=== PATIENT | female | born 1950 | race Caucasian/White ===

== ENCOUNTER 2017-04-05 09:18 | Day surgery (SDC) | payer OTHER ==
[2016-07-10 20:13] VITALS: BMI 29.2
[~2017-04-05 09:18] MED LIST: Bupivacaine HCl 0.25% PF (10 ml) Inj ONE; Iohexol 240 (50 ml) ONE
[2017-04-05] MEDS ORDERED: MethylPREDNISolone Depo 40 mg/ml Inj ONE (10:20)
[2017-04-05] MEDS ORDERED: Lactated Ringer's 500 ML IV ONE (11:38)
[2017-04-05] MEDS ORDERED: Propofol 10 mg/ml Inj (20 ML) ONE (11:39)
[2017-04-05 12:28] VITALS: PULSE 72; O2SAT 98
--- NOTE | 2017-04-05 12:46 | RAD ---
PROCEDURE: Intraoperative Fluoroscopy. HISTORY: LUMBAR RADICULOPATHY FINDINGS: Fluoroscopic assistance was provided. 21.0 seconds fluoroscopy time utilized during this procedure. Radiation dose = 0.09714 mGy-cm
[2017-04-05 13:47] VITALS: BP 150/78; RESP 18; TEMP 98
--- NOTE | 2017-04-06 08:36 | OP ---
DATE: 04/05/17 PREOPERATIVE DIAGNOSES: 1. Lumbar radiculopathy. 2. Lumbar herniated disc. 3. Myalgias. POSTOPERATIVE DIAGNOSES: 1. Lumbar radiculopathy. 2. Lumbar herniated disc. 3. Myalgias. PROCEDURE: 1. L5-S1 lumbar selective nerve root block. 2. Epidurogram. 3. Trigger point injections. X-RAY: [id number], Fluoroscopy of the spine. ANESTHESIA: MAC/local. SURGEON: Ron Wen MD COMPLICATIONS: None. BLOOD LOSS: 2 mL. INDICATION: This patient has intractable back and leg pain that is unresponsive to conservative management. The pain is adversely affecting quality of life and activities of daily living. TECHNIQUE: After comprehensive informed consent was obtained, the risks of the procedure explained and questions answered. The patient understands fully the risks are, but not limited to possible bleeding, infection, headache, nervous tissue injury and worsening of their pain. The patient was placed prone on the operating table in a comfortable position. Confirmation of the procedure to be performed was obtained from the patient. The skin overlying the area to be injected was cleaned in a strict sterile fashion using chlorhexidine. Sterile drapes were placed around the area to be injected. Using the C-arm in the anteroposterior view, the levels to be injected were identified under fluoroscope. Then, the C-arm was obliqued in the coronal plane until the facet joint was delineated approximately 25 degrees. The area to be injected was superficially anesthetized with 3 mL of 1% lidocaine using a 27-gauge, 1.25-inch needle. Under fluoroscopic guidance, a 22-guage, 3.5-inch short bevel needle was advanced and directed toward the tip of the pars. In the lateral view, ideal placement of the needle was obtained with the tip in the cephalodorsal corner of the neural foramen. In the anteroposterior plane and under continuous fluoroscopy, 1 mL of non-ionic, water-soluble contrast (Omnipaque 180) was injected to visualize the nerve root and make sure there was no vascular uptake. After negative aspiration for blood, 1 mL of preservative-free 0.5% Marcaine in 80 mg of Depo-Medrol was slowly injected at each level. The patient experienced no painful paresthesia during the injection. Epidurogram: The patient underwent transforaminal epidural steroid injection today. The epidural was observed at the level of L4-L5 under AP and lateral fluoroscopic guidance. A 2 mL of Omnipaque 200 contrast was injected that evenly spread from level L3 to S1 level with posterior-anterior dye spread bilaterally at level of L4-L5 and L5-S1. There appeared to be a moderate degree spondylosis at level of L4-L5 and moderate degree of spondylosis at the level of L5-S1 with disc protrusion at the level of L4-L5. The intervertebral disc height at the level of L4-L5 was slightly less than normal and intervertebral disc height at the level of L5-S1 was well maintained. The neural foramen appeared to be patent. Good epidural dye containment from L3-S1 with intervertebral disc protrusion at the level of L4-L5, maintaining less than normal intervertebral disc height at level L4-L5. Spondylosis noted at the level of L4 through S1. Copies of the images are on file. Trigger Point Injections: A 27-gauge needle was used to inject trigger point areas in paralumbar muscles, parathoracic muscles, and upper gluteal muscles. Needle was redirected to sciatic nerve branches. Total volume of 10 mL of 0.25% Marcaine. Intermittent aspiration was done throughout with no heme or CSF aspirated throughout. Patient tolerated procedure well. DISPOSITION: Patient was taken to the recovery room in stable condition. Patient was given instructions to follow up in two weeks and was discharged in stable condition. No events or complications. Ron Wen MD
== END 2017-04-05 12:45 | disposition home or self-care (01) ==
LOC: C.SDS 09:18
PROVIDERS: ATTEND Anesthesiology Pain Medicine
DX: M47.817 Spondylosis without myelopathy or radiculopathy, lumbosacral region (principal); M51.36 Other intervertebral disc degeneration, lumbar region; M51.16 Intervertebral disc disorders with radiculopathy, lumbar region
CPT/HCPCS: 62323; J1030; J2704; J7120; Q9966

== ENCOUNTER 2017-06-18 08:54 | Observation (INO) | payer OTHER ==
[2017-06-18 08:55] VITALS: BMI 29.2
--- NOTE | 2017-06-18 09:17 | C.PDOC ---
History Of Present Illness 67-YEAR-OLD FEMALE, PRESENTS TO THE EMERGENCY DEPARTMENT WITH WORSENING COUGH X 1 WEEK, NEW ONSET CHILLS, AND SWEATS SINCE LAST NIGHT. SAW PMD, ON AUGMENTIN 875 AND PREDNISONE SINCE 06/14, NO IMPROVE. NO IMPROVE W OCUGH RX. PMH of DM, HTN, ALEAH, depression, COPD EXAM APPEARS ILL NONTOXIC HEENT +RHINORRHEA LUNGS B/L EXP WHEEZE BRONCHIAL CADEN NO RALES +RETRACTION SPEAKING 4-5 WORD SENTENCES CV RRR [place] REMAINDER NEG Time Seen by Provider: 06/18/17 09:14 Chief Complaint (Nursing): Shortness Of Breath History Per: Patient History/Exam Limitations: no limitations Onset/Duration Of Symptoms: Days Current Symptoms Are (Timing): Still Present Past Medical History Reviewed: Historical Data, Nursing Documentation, Vital Signs Vital Signs: Last Vital Signs Temp 98.2 F 06/18/17 09:00 Pulse 56 L 06/18/17 11:15 Resp 18 06/18/17 11:15 BP 170/84 H 06/18/17 11:15 Pulse Ox 100 06/18/17 11:15 - Medical History PMH: Alzheimer's Disease, Anxiety, Asthma, Bronchitis, COPD, Dementia, Depression, HTN, Hypercholesterolemia, Schizophrenia Surgical History: Back Surgery - [facility] Procedures ASSISTANCE WITH RESPIRATORY VENTILATION, <24 HRS, CPAP (07/06/15) Family History: States: No Known Family Hx - Social History Hx Tobacco Use: Yes (3 cigarettes daily) Hx Alcohol Use: No Hx Substance Use: No - Immunization History Hx Tetanus Toxoid Vaccination: No Hx Influenza Vaccination: No Hx Pneumococcal Vaccination: No Review Of Systems Except As Marked, All Systems Reviewed And Found Negative. Constitutional: Positive for: Chills. Negative for: Fever Cardiovascular: Negative for: Chest Pain Respiratory: Positive for: Cough. Negative for: Shortness of Breath, Hemoptysis Gastrointestinal: Negative for: Nausea, Vomiting Musculoskeletal: Negative for: Back Pain Physical Exam - Physical Exam Appears: Non-toxic (appears ill), No Acute Distress Skin: Warm, Dry, No Rash, Other ([place]) Head: Atraumatic, Normacephalic Eye(s): bilateral: Normal Inspection, PERRL Nose: Discharge (+RHINORRHEA) Oral Mucosa: Moist Lips: Normal Appearing Neck: Normal ROM, Supple Chest: Symmetrical Cardiovascular: Rhythm Regular, No Murmur Respiratory: Other (B/L EXP WHEEZE BRONCHIAL CADEN NO RALES +RETRACTION SPEAKING 4-5 WORD SENTENCES) Extremity: Normal ROM Neurological/Psych: Oriented x3, Normal Speech ED Course And Treatment - Laboratory Results Result Diagrams: 06/18/17 10:26 06/18/17 10:26 O2 Sat by Pulse Oximetry: 99 (RA) Pulse Ox Interpretation: Normal - Radiology CXR: Interpreted by Me CXR Interpretation: Yes: No Acute Disease Progress - Re-Evaluation Re-evaluation Note: 06/18/17 10:25 SP NEB IMPROVED RESPIRATIONS D/W DR ODELL AWARE OF ER FINDINGS WILL ADMIT - Data Reviewed Data Reviewed: Lab, Diagnostic imaging, Old records Disposition Counseled Patient/Family Regarding: Studies Performed, Diagnosis, Need For Followup - Disposition Disposition: HOSPITALIZED Disposition Time: 10:28 Condition: STABLE - POA Present On Arrival: None - Clinical Impression Clinical Impression: COPD (chronic obstructive pulmonary disease) with acute bronchitis - Scribe Statement The provider has reviewed the documentation as recorded by the Scribe (Gal Guadarrama) All medical record entries made by the Scribe were at my direction and personally dictated by me. I have reviewed the chart and agree that the record accurately reflects my personal performance of the history, physical exam, medical decision making, and the department course for this patient. I have also personally directed, reviewed, and agree with the discharge instructions and disposition. Decision To Admit - Pt Status Changed To: Hospital Disposition Of: Observation - . Bed Request Type: Regular Admitting Physician: Tylor Odell Patient Diagnosis: COPD (chronic obstructive pulmonary disease) with acute bronchitis
[2017-06-18] MEDS ORDERED: Moxifloxacin IV 400mg/250ml NS 400 MG/250 ML BAG IV STA (09:32)
[2017-06-18] MEDS ORDERED: Sodium Chloride 0.9% 1,000 ML IV ONE (09:32)
[2017-06-18] MEDS ORDERED: Moxifloxacin IV 400mg/250ml NS 400 MG/250 ML BAG IVPB ONE (09:52)
[2017-06-18] MEDS ORDERED: Sodium Chloride 0.9% 1,000 ML ONE (09:52)
[2017-06-18] MEDS ORDERED: Albuterol-Ipratrop 3 mg / 0.5 (3 ml) UD ONE (09:59)
[2017-06-18] MEDS: Albuterol-Ipratrop 3 mg / 0.5 (3 ml) UD IH SCH ×3 (10:00→10:20)
--- NOTE | 2017-06-18 10:02 | RAD ---
PROCEDURE: CHEST RADIOGRAPH, 1 VIEW HISTORY: Pneumonia COMPARISON: 07/10/2016 FINDINGS: LUNGS: Clear. PLEURA: No pneumothorax or pleural fluid seen. CARDIOVASCULAR: Normal. OSSEOUS STRUCTURES: No significant abnormalities. VISUALIZED UPPER ABDOMEN: Normal. OTHER FINDINGS: None. IMPRESSION: No active disease.
[2017-06-18] MEDS ORDERED: Moxifloxacin IV 400mg/250ml NS 400 MG/250 ML BAG IVPB SCH (10:30)
[2017-06-18 10:39] LABS: BASO % 0.1 % (0.0-2.0); EOS % 0.1 % (0.0-4.0); HEMOGLOBIN 12.3 g/dL (11.0-16.0); LYMPH # 3.1 K/uL (1.0-4.3); LYMPH % 23.9 % (20.0-40.0); MEAN CORPUSCULAR HEMOGLOBIN 27.8 pg (27.0-31.0); MEAN PLATELET VOLUME 8.6 fL (7.2-11.7); MONO # 1.5 K/uL (0.0-0.8); MONO % 11.7 % (0.0-10.0); NEUT # 8.3 K/uL (1.8-7.0); NEUT % 64.2 % (50.0-75.0); NRBC % 0.1 % (0.0-2.0); RBC 4.43 Mil/uL (3.80-5.20); RED CELL DISTRIBUTION WIDTH 16.1 % (11.5-14.5)
[2017-06-18] MEDS ORDERED: MethylPREDNISolone 40 mg Vial ONE (10:40)
[2017-06-18] MEDS: MethylPREDNISolone 40 mg Vial IVP SCH ×2 (10:48→21:12)
[2017-06-18 11:00] LABS: ALB/GLOB RATIO 1.1 (1.0-2.1); ALBUMIN 3.5 g/dL (3.5-5.0); ALT/SGPT 48 U/L (9-52); AST/SGOT 21 U/L (14-36); BLOOD UREA NITROGEN 19 mg/dL (7-17); CALCIUM 8.8 mg/dl (8.6-10.4); GFR AFRICAN-AMERICAN > 60; GFR NON-AFRICAN AMERICAN > 60
[2017-06-18 11:11] LABS: B-TYPE NATRIURETIC PEPTIDE 232 pg/mL (0-900)
[2017-06-18] MEDS: guaiFENesin 100 mg/5 ml Syrup UD PO SCH ×2 (13:49→17:04)
[2017-06-18] MEDS: Albuterol-Ipratrop 3 mg / 0.5 (3 ml) UD INH SCH ×2 (14:01→19:41)
[2017-06-18 14:42] VITALS: RESP 20
[2017-06-18] MEDS: Oxycodone/Acetaminophen 5/325 mg Tab PO PRN ×2 (17:09→23:52)
[2017-06-18] MEDS: Fluticasone-Salmeterol 250-50mcg Diskus INH SCH (19:41)
[2017-06-18] MEDS: QUEtiapine 150 mg XR Tab PO SCH (21:12)
[2017-06-18] MEDS ORDERED: ILOPERIDONE 6 MG PO SCH ×2 (22:00)
[2017-06-18 22:03] LABS: SQUAMOUS EPITHIAL < 1 /hpf (0-5); URINE BILIRUBIN NEGATIVE (NEGATIVE); URINE BLOOD NEGATIVE (NEGATIVE); URINE CLARITY Clear (Clear); URINE COLOR Yellow (YELLOW); URINE GLUCOSE (UA) NORMAL (Normal); URINE LEUKOCYTE ESTERASE NEG Leu/uL (Negative); URINE NITRATE NEGATIVE (NEGATIVE); URINE PROTEIN NEGATIVE (NEGATIVE); URINE UROBILINOGEN NORMAL mg/dL (0.2-1.0)
--- NOTE | 2017-06-18 22:15 | CP.PCM.HP ---
History of Present Illness - History of Present Illness History of Present Illness: CC: sHORTNESS OF BREATH, COUGH HPI: 67-YEAR-OLD FEMALE WHO IS CHRONIC SMOKER, PRESENTS TO THE EMERGENCY DEPARTMENT WITH WORSENING COUGH X 1 WEEK, NEW ONSET CHILLS, AND SWEATS SINCE LAST NIGHT. SEEN BY ME AND STARTED ON AUGMENTIN 875 AND PREDNISONE SINCE 06/14, NO IMPROVEMENT. NO IMPROVE W OCUGH RX. PMH of DM, HTN, ALEAH, depression, COPD, SCIATICA EXAM APPEARS ILL NONTOXIC HEENT +RHINORRHEA LUNGS B/L EXP WHEEZE BRONCHIAL CADEN NO RALES +RETRACTION SPEAKING 4-5 WORD SENTENCES CV RRR [place] REMAINDER NEG Present on Admission - Present on Admission Any Indicators Present on Admission: Yes Review of Systems - Review of Systems Systems not reviewed;Unavailable: Acuity of Condition, Respiratory Distress - Constitutional Constitutional: Fatigue, Lethargy, Malaise - EENT Eyes: absent: As Per HPI, Blind Spots, Blurred Vision, Change in Vision, Decreased Night Vision, Diplopia, Discharge, Dry Eye, Exophthalmos, Floaters, Irritation, Itchy Eyes, Loss of Peripheral Vision, Pain, Photophobia, Requires Corrective Lenses, Sees Flashes, Spots in Vision, Tunnel Vision, Other Visual Disturbances, Loss of Vision, Other Nose/Mouth/Throat: Nasal Congestion - Respiratory Respiratory: Cough, Dyspnea - Gastrointestinal Gastrointestinal: absent: As Per HPI, Abdominal Pain, Belching, Bloating, Change in Bowel Habits, Change in Stool Character, Coffee Ground Emesis, Constipation, Cramping, Diarrhea, Dyspepsia, Dysphagia, Early Satiety, Excessive Flatus, Fecal Incontinence, Heartburn, Hematemesis, Hematochezia, Loose Stools, Melena, Nausea, Odynophagia, Temesmus, Vomiting, Other - Psychiatric Psychiatric: Abnormal Sleep Pattern, Anxiety, Change in Appetite - Endocrine Endocrine: absent: As Per HPI, Change in Body Appearance, Change in Libido, Cold Intolorance, Deepening of Voice, Excessive Sweating, Fatigue, Flushing, Heat Intolorance, Increase in Ring/Shoe/Hat Size, Palpitations, Polydipsia, Polyphagia, Polyuria, Other Past Patient History - Infectious Disease Hx of Infectious Diseases: None - Past Medical History & Family History Past Medical History?: Yes - Past Social History Smoking Status: Light Smoker < 10 Cigarettes Daily - CARDIAC Hx Hypercholesterolemia: Yes Hx Hypertension: Yes - PULMONARY Hx Asthma: Yes Hx Bronchitis: Yes Hx Chronic Obstructive Pulmonary Disease (COPD): Yes - NEUROLOGICAL Hx Alzheimer's Disease: Yes Hx Dementia: Yes - ENDOCRINE/METABOLIC Hx Endocrine Disorders: Yes Hx Diabetes Mellitus Type 2: Yes - MUSCULOSKELETAL/RHEUMATOLOGICAL Hx Musculoskeletal Disorders: Yes Hx Back Pain: Yes Hx Herniated Disk: Yes Hx Unsteady Gait: Yes Other/Comment: BACK SURGERY JAN 22 - PSYCHIATRIC Hx Anxiety: Yes Hx Depression: Yes Hx Schizophrenia: Yes Hx Substance Use: No - SURGICAL HISTORY Hx Surgeries: Yes Hx Musculoskeletal Surgery: Yes (LAMINECTOMY) - ANESTHESIA Hx Anesthesia: Yes Hx Anesthesia Reactions: No Hx Malignant Hyperthermia: No Meds Allergies/Adverse Reactions: Allergies Allergy/AdvReac Type Severity Reaction Status Date / Time No Known Allergies Allergy Verified 06/18/17 09:07 Physical Exam - Constitutional Appears: No Acute Distress - Head Exam Head Exam: ATRAUMATIC, NORMAL INSPECTION, NORMOCEPHALIC - Eye Exam Eye Exam: EOMI, Normal appearance, PERRL Pupil Exam: NORMAL ACCOMODATION, PERRL - Respiratory Exam Respiratory Exam: Decreased Breath Sounds, Rales, Rhonchi - Cardiovascular Exam Cardiovascular Exam: REGULAR RHYTHM - GI/Abdominal Exam GI & Abdominal Exam: Normal Bowel Sounds, Soft. absent: Tenderness Results - Vital Signs Recent Vital Signs: Last Vital Signs Temp 98.6 F 06/18/17 15:08 Pulse 68 06/18/17 19:46 Resp 20 06/18/17 15:08 BP 152/96 H 06/18/17 15:08 Pulse Ox 97 06/18/17 15:34 - Labs Result Diagrams: 06/18/17 10:26 06/18/17 10:26 Labs: Laboratory Results - last 24 hr 06/18/17 06/18/17 06/18/17 10:26 10:26 21:55 WBC 13.0 H RBC 4.43 Hgb 12.3 Hct 37.2 MCV 84.0 MCH 27.8 MCHC 33.0 RDW 16.1 H Plt Count 263 MPV 8.6 Neut % (Auto) 64.2 Lymph % (Auto) 23.9 [place] % (Auto) 11.7 H Eos % (Auto) 0.1 Baso % (Auto) 0.1 Neut # 8.3 H Lymph # 3.1 [place] # 1.5 H Eos # 0.0 Baso # 0.0 Sodium 136 Potassium 4.0 Chloride 101 Carbon Dioxide 28 Anion Gap 10 BUN 19 H Creatinine 0.8 Est GFR ( Amer) > 60 Est GFR (Non-Af Amer) > 60 Random Glucose 91 Calcium 8.8 Total Bilirubin 0.5 AST 21 ALT 48 Alkaline Phosphatase 52 NT-Pro-B Natriuret Pep 232 Total Protein 6.7 Albumin 3.5 Globulin 3.2 Albumin/Globulin Ratio 1.1 Urine Color Yellow Urine Clarity Clear Urine pH 6.0 Ur Specific [place] 1.019 Urine Protein Negative Urine Glucose (UA) Normal Urine Ketones Negative Urine Blood Negative Urine Nitrate Negative Urine Bilirubin Negative Urine Urobilinogen Normal Ur Leukocyte Esterase Neg Urine WBC (Auto) 2 Urine RBC (Auto) 1 Ur Squamous Epith Cells < 1 Influenza Typ A,B (EIA) 06/18/17 Unknown WBC RBC Hgb Hct MCV MCH MCHC RDW Plt Count MPV Neut % (Auto) Lymph % (Auto) [place] % (Auto) Eos % (Auto) Baso % (Auto) Neut # Lymph # [place] # Eos # Baso # Sodium Potassium Chloride Carbon Dioxide Anion Gap BUN Creatinine Est GFR ( Amer) Est GFR (Non-Af Amer) Random Glucose Calcium Total Bilirubin AST ALT Alkaline Phosphatase NT-Pro-B Natriuret Pep Total Protein Albumin Globulin Albumin/Globulin Ratio Urine Color Urine Clarity Urine pH Ur Specific [place] Urine Protein Urine Glucose (UA) Urine Ketones Urine Blood Urine Nitrate Urine Bilirubin Urine Urobilinogen Ur Leukocyte Esterase Urine WBC (Auto) Urine RBC (Auto) Ur Squamous Epith Cells Influenza Typ A,B (EIA) Negative for flu a/b Assessment & Plan (1) COPD (chronic obstructive pulmonary disease) with acute bronchitis Status: Acute (2) Asthma with bronchitis Status: Acute (3) Bronchospasm Status: Acute (4) COPD with exacerbation Status: Acute
[2017-06-19] MEDS: Albuterol-Ipratrop 3 mg / 0.5 (3 ml) UD INH SCH ×4 (03:03→19:16)
[2017-06-19] MEDS: Fluticasone-Salmeterol 250-50mcg Diskus INH SCH ×2 (07:16→19:16)
[2017-06-19] MEDS: Oxycodone/Acetaminophen 5/325 mg Tab PO PRN (10:23)
[2017-06-19] MEDS: guaiFENesin 100 mg/5 ml Syrup UD PO SCH ×3 (11:00→18:02)
[2017-06-19] MEDS: Enoxaparin 40 mg Syringe SC SCH (11:00)
[2017-06-19] MEDS: Moxifloxacin IV 400mg/250ml NS 400 MG/250 ML BAG IVPB SCH (11:00)
[2017-06-19] MEDS: MethylPREDNISolone 40 mg Vial IVP SCH ×2 (11:00→21:19)
[2017-06-19] MEDS ORDERED: Oxycodone/Acetaminophen 5/325 mg Tab PO PRN (12:01)
--- NOTE | 2017-06-19 14:27 | CP.PCM.PN ---
Subjective - Date & Time of Evaluation Date of Evaluation: 06/19/17 Time of Evaluation: 18:00 - Subjective Subjective: Pt seen and examined Objective - Vital Signs/Intake and Output Vital Signs (last 24 hours): Temp Pulse Resp BP Pulse Ox 98.1 F 59 L 20 152/82 H 96 06/19/17 07:15 06/19/17 07:15 06/19/17 07:15 06/19/17 07:15 06/19/17 07:15 Intake and Output: 06/19/17 06/19/17 06:59 18:59 Intake Total 600 Output Total 5 Balance 595 - Medications Medications: Current Medications Albuterol/Ipratropium (Duoneb 3 Mg/0.5 Mg (3 Ml) Ud) 3 ml INH RQ6 [facility] Last Admin: 06/19/17 14:01 Dose: 3 ml Alprazolam (Xanax) 1 mg PO TID PRN PRN Reason: Anxiety Benzonatate (Tessalon Perles) 100 mg PO TID [facility] Last Admin: 06/19/17 11:00 Dose: 100 mg Enoxaparin Sodium (Lovenox) 40 mg SC DAILY [facility] Last Admin: 06/19/17 11:00 Dose: 40 mg Famotidine (Pepcid) 40 mg PO DAILY [facility] Last Admin: 06/19/17 11:00 Dose: 40 mg Guaifenesin (Robitussin) 200 mg PO TID [facility] Last Admin: 06/19/17 11:00 Dose: 200 mg Home Med (Iloperidone [Fanapt]) 6 mg PO HS [facility] Moxifloxacin HCl (Avelox Iv 400mg/250ml Ns) 400 mg in 250 mls @ 167 mls/hr IVPB Q24H [facility] Last Admin: 06/19/17 11:00 Dose: 167 mls/hr Lamotrigine (Lamictal) 100 mg PO BID [facility] Last Admin: 06/19/17 11:00 Dose: 100 mg Losartan Potassium (Cozaar) 100 mg PO DAILY [facility] Last Admin: 06/19/17 11:00 Dose: 100 mg Methylprednisolone (Solu-Medrol) 40 mg IVP Q12 [facility] Last Admin: 06/19/17 11:00 Dose: 40 mg Oxycodone/Acetaminophen (Percocet 5/325 Mg Tab) 1 tab PO QID PRN PRN Reason: Pain, severe (8-10) Quetiapine Fumarate (Seroquel Xr) 150 mg PO HS [facility] Last Admin: 06/18/17 21:12 Dose: 150 mg Fluticasone/Salmeterol (Advair Diskus 250/50) 1 puff INH RQ12 [facility] Last Admin: 06/19/17 07:16 Dose: 1 puff - Labs Labs: 06/18/17 10:26 06/18/17 10:26 Assessment and Plan (1) COPD (chronic obstructive pulmonary disease) with acute bronchitis Status: Acute (2) Asthma with bronchitis Status: Acute (3) Bronchospasm Status: Acute (4) COPD with exacerbation Status: Acute
[2017-06-19] MEDS: QUEtiapine 150 mg XR Tab PO SCH (21:20)
[2017-06-20 01:43] VITALS: PULSE 71; TEMP 98.6; O2SAT 99
[2017-06-20 01:46] VITALS: BP 160/79
[2017-06-20] MEDS: Albuterol-Ipratrop 3 mg / 0.5 (3 ml) UD INH SCH ×3 (01:55→13:06)
[2017-06-20] MEDS: Fluticasone-Salmeterol 250-50mcg Diskus INH SCH (07:00)
[2017-06-20] MEDS ORDERED: Pneumococcal 23-Valent Vaccine IM ONE (10:00)
[2017-06-20] MEDS: Moxifloxacin IV 400mg/250ml NS 400 MG/250 ML BAG IVPB SCH (10:14)
[2017-06-20] MEDS: MethylPREDNISolone 40 mg Vial IVP SCH (10:15)
[2017-06-20] MEDS: guaiFENesin 100 mg/5 ml Syrup UD PO SCH (10:15)
[2017-06-20] MEDS: Enoxaparin 40 mg Syringe SC SCH (10:16)
--- NOTE | 2017-06-20 12:35 | CP.PCM.PN ---
Subjective - Date & Time of Evaluation Date of Evaluation: 06/20/17 Time of Evaluation: 12:31 - Subjective Subjective: PT SEEN AT BEDSIDE WITH DR. ODELL DURING ROUNDS. PT CLEARED FOR D/C HOME TODAY BY DR. ODELL. TO CONTINUE HOME MEDS USUAL; PT STATES SHE HAS ALL MEDICATIONS AND NEEDS NO REFILLS. NEW RX SENT TO HER PHARMACY FOR AVELOX X3 MORE DAYS AND PREDNISONE TAPER. TO F/U WITH DR. ODELL IN THE OFFICE IN 1 WEEK. PT ALSO DOES NOT QUALIFY FOR HOME O2 AT THIS TIME (O2 SAT AT ROOM AIR AFTER AMBULATING FOR 10 MINUTES 96 % PER PRIMARY RN ARMIDA). DR. ODELL AWARE OF THIS AND WILL CONTINUE TO MONITOR NEED FOR HOME O2 FROM OFFICE. NO FURTHER ORDERS. -FOLLOW UP WITH DR. ODELL IN THE OFFICE WITHIN 7 DAYS---CALL THE OFFICE TO MAKE AN APPOINTMENT. -CONTINUE HOME MEDICATIONS USUAL, INCLUDING YOUR BREATHING TREATMENTS AND COUGH SYRUP. -NEW PRESCRIPTIONS INCLUDE: 1) AVELOX (ANTIBIOTIC) 400 MG (TAKE ONE TABLET) ONCE A DAY FOR THREE MORE DAYS. START TAKING THIS TOMORROW, 06/21/17. 2) PREDNISONE (STEROID FOR INFLAMMATION IN YOUR LUNGS); EVERY THREE DAYS THE DOSE WILL CHANGE; TAKE EXACTLY PRESCRIBED: START WITH 40 MG (4 TABLETS) BY MOUTH ONCE A DAY FOR THREE DAYS, THEN 30 MG (3 TABLETS) BY MOUTH ONCE A DAY FOR THREE DAYS, THEN 20 MG (2 TABLETS) BY MOUTH ONCE A DAY FOR THREE DAYS, THEN 10 MG (1 TABLET) BY MOUTH ONCE A DAY FOR THREE DAYS. -STOP SMOKING! -IF YOU HAVE ANY FURTHER QUESTIONS OR CONCERNS, CONTACT DR. ODELL'S OFFICE. Objective - Vital Signs/Intake and Output Vital Signs (last 24 hours): Temp Pulse Resp BP Pulse Ox 98.6 F 71 20 160/79 H 99 06/20/17 00:00 06/20/17 00:00 06/20/17 00:00 06/20/17 00:00 06/20/17 00:00 Intake and Output: 06/20/17 06/20/17 06:59 18:59 Intake Total 90 Balance 90 - Medications Medications: Current Medications Albuterol/Ipratropium (Duoneb 3 Mg/0.5 Mg (3 Ml) Ud) 3 ml INH RQ6 [facility] Last Admin: 06/20/17 01:55 Dose: Not Given Alprazolam (Xanax) 1 mg PO TID PRN PRN Reason: Anxiety Last Admin: 06/19/17 21:20 Dose: 1 mg Benzonatate (Tessalon Perles) 100 mg PO TID [facility] Last Admin: 06/20/17 10:15 Dose: 100 mg Enoxaparin Sodium (Lovenox) 40 mg SC DAILY [facility] Last Admin: 06/20/17 10:16 Dose: 40 mg Famotidine (Pepcid) 40 mg PO DAILY [facility] Last Admin: 06/20/17 10:15 Dose: 40 mg Guaifenesin (Robitussin) 200 mg PO TID [facility] Last Admin: 06/20/17 10:15 Dose: 200 mg Moxifloxacin HCl (Avelox Iv 400mg/250ml Ns) 400 mg in 250 mls @ 167 mls/hr IVPB Q24H [facility] Last Admin: 06/20/17 10:14 Dose: 167 mls/hr Lamotrigine (Lamictal) 100 mg PO BID [facility] Last Admin: 06/20/17 10:15 Dose: 100 mg Losartan Potassium (Cozaar) 100 mg PO DAILY [facility] Last Admin: 06/20/17 10:15 Dose: 100 mg Methylprednisolone (Solu-Medrol) 40 mg IVP Q12 [facility] Last Admin: 06/20/17 10:15 Dose: 40 mg Oxycodone/Acetaminophen (Percocet 5/325 Mg Tab) 1 tab PO QID PRN PRN Reason: Pain, severe (8-10) Last Admin: 06/19/17 21:19 Dose: 1 tab Quetiapine Fumarate (Seroquel Xr) 150 mg PO HS [facility] Last Admin: 06/19/17 21:20 Dose: 150 mg Fluticasone/Salmeterol (Advair Diskus 250/50) 1 puff INH RQ12 [facility] Last Admin: 06/19/17 19:16 Dose: 1 puff - Labs Labs: 06/18/17 10:26 06/18/17 10:26
--- NOTE | 2017-06-20 23:17 | CP.PCM.DIS ---
Provider - Provider Date of Admission: 06/18/17 11:04 Attending physician: Tylor Gregory MD Time Spent in preparation of Discharge (in minutes): 56 Diagnosis - Discharge Diagnosis (1) COPD (chronic obstructive pulmonary disease) with acute bronchitis Status: Acute (2) Asthma with bronchitis Status: Acute (3) Bronchospasm Status: Acute (4) COPD with exacerbation Status: Acute Hospital Course - Lab Results Lab Results: Micro Results 06/18/17 08:34 Urine,Clean Catch Urine Culture - Final No Growth (<1,000 CFU/ML) 06/18/17 10:10 Blood Blood Culture - Preliminary NO GROWTH AFTER 48 HOURS 06/18/17 09:55 Blood Blood Culture - Preliminary NO GROWTH AFTER 48 HOURS Most Recent Lab Values WBC 13.0 K/uL (4.8-10.8) H 06/18/17 10:26 RBC 4.43 Mil/uL (3.80-5.20) 06/18/17 10:26 Hgb 12.3 g/dL (11.0-16.0) 06/18/17 10:26 Hct 37.2 % (34.0-47.0) 06/18/17 10:26 MCV 84.0 fL (81.0-99.0) 06/18/17 10:26 MCH 27.8 pg (27.0-31.0) 06/18/17 10:26 MCHC 33.0 g/dL (33.0-37.0) 06/18/17 10:26 RDW 16.1 % (11.5-14.5) H 06/18/17 10:26 Plt Count 263 K/uL (130-400) 06/18/17 10:26 MPV 8.6 fL (7.2-11.7) 06/18/17 10:26 Neut % (Auto) 64.2 % (50.0-75.0) 06/18/17 10:26 Lymph % (Auto) 23.9 % (20.0-40.0) 06/18/17 10:26 Sully % (Auto) 11.7 % (0.0-10.0) H 06/18/17 10:26 Eos % (Auto) 0.1 % (0.0-4.0) 06/18/17 10:26 Baso % (Auto) 0.1 % (0.0-2.0) 06/18/17 10:26 Neut # 8.3 K/uL (1.8-7.0) H 06/18/17 10:26 Lymph # 3.1 K/uL (1.0-4.3) 06/18/17 10:26 Sully # 1.5 K/uL (0.0-0.8) H 06/18/17 10:26 Eos # 0.0 K/uL (0.0-0.7) 06/18/17 10:26 Baso # 0.0 K/uL (0.0-0.2) 06/18/17 10:26 Sodium 136 mmol/L (132-148) 06/18/17 10:26 Potassium 4.0 mmol/L (3.6-5.2) 06/18/17 10:26 Chloride 101 mmol/L (98-107) 06/18/17 10:26 Carbon Dioxide 28 mmol/L (22-30) 06/18/17 10:26 Anion Gap 10 (10-20) 06/18/17 10:26 BUN 19 mg/dL (7-17) H 06/18/17 10:26 Creatinine 0.8 mg/dL (0.7-1.2) 06/18/17 10:26 Est GFR ( Amer) > 60 06/18/17 10:26 Est GFR (Non-Af Amer) > 60 06/18/17 10:26 POC Glucose (mg/dL) 129 mg/dL (65-110) H 06/20/17 11:12 Random Glucose 91 mg/dL (65-105) 06/18/17 10:26 Calcium 8.8 mg/dl (8.6-10.4) 06/18/17 10:26 Total Bilirubin 0.5 mg/dL (0.2-1.3) 06/18/17 10:26 AST 21 U/L (14-36) 06/18/17 10:26 ALT 48 U/L (9-52) 06/18/17 10:26 Alkaline Phosphatase 52 U/L (38-126) 06/18/17 10:26 NT-Pro-B Natriuret Pep 232 pg/mL (0-900) 06/18/17 10:26 Total Protein 6.7 g/dL (6.3-8.3) 06/18/17 10:26 Albumin 3.5 g/dL (3.5-5.0) 06/18/17 10:26 Globulin 3.2 gm/dL (2.2-3.9) 06/18/17 10:26 Albumin/Globulin Ratio 1.1 (1.0-2.1) 06/18/17 10:26 Urine Color Yellow (YELLOW) 06/18/17 21:55 Urine Clarity Clear (Clear) 06/18/17 21:55 Urine pH 6.0 (5.0-8.0) 06/18/17 21:55 Ur Specific [place] 1.019 (1.003-1.030) 06/18/17 21:55 Urine Protein Negative mg/dL (NEGATIVE) 06/18/17 21:55 Urine Glucose (UA) Normal mg/dL (Normal) 06/18/17 21:55 Urine Ketones Negative mg/dL (NEGATIVE) 06/18/17 21:55 Urine Blood Negative (NEGATIVE) 06/18/17 21:55 Urine Nitrate Negative (NEGATIVE) 06/18/17 21:55 Urine Bilirubin Negative (NEGATIVE) 06/18/17 21:55 Urine Urobilinogen Normal mg/dL (0.2-1.0) 06/18/17 21:55 Ur Leukocyte Esterase Neg Lavonne/uL (Negative) 06/18/17 21:55 Urine WBC (Auto) 2 /hpf (0-5) 06/18/17 21:55 Urine RBC (Auto) 1 /hpf (0-3) 06/18/17 21:55 Ur Squamous Epith Cells < 1 /hpf (0-5) 06/18/17 21:55 Influenza Typ A,B (EIA) Negative for flu a/b (NEGATIVE) 06/18/17 Unknown - Hospital Course Hospital Course: PT SEEN AT BEDSIDE AND IS CLEARED FOR D/C HOME TODAY , ADVISED TO CONTINUE HOME MEDS USUAL; PT STATES SHE HAS ALL MEDICATIONS AND NEEDS NO REFILLS. NEW RX SENT TO HER PHARMACY FOR AVELOX X3 MORE DAYS AND PREDNISONE TAPER. TO F/U WITH ME IN THE OFFICE IN 1 WEEK. PT ALSO DOES NOT QUALIFY FOR HOME O2 AT THIS TIME ( O2 SAT AT ROOM AIR AFTER AMBULATING FOR 10 MINUTES 96 % PER PRIMARY RN ARMIDA). -FOLLOW UP WITH ME (pmd) IN THE OFFICE WITHIN 7 DAYS---CALL THE OFFICE TO MAKE AN APPOINTMENT. -CONTINUE HOME MEDICATIONS USUAL, INCLUDING YOUR BREATHING TREATMENTS AND COUGH SYRUP. -NEW PRESCRIPTIONS INCLUDE: 1) AVELOX (ANTIBIOTIC) 400 MG (TAKE ONE TABLET) ONCE A DAY FOR THREE MORE DAYS. START TAKING THIS TOMORR, 06/21/17. 2) PREDNISONE (STEROID FOR INFLAMMATION IN YOUR LUNGS); EVERY THREE DAYS THE DOSE WILL CHANGE; TAKE EXACTLY PRESCRIBED: START WITH 40 MG (4 TABLETS) BY MOUTH ONCE A DAY FOR THREE DAYS, THEN 30 MG (3 TABLETS) BY MOUTH ONCE A DAY FOR THREE DAYS, THEN 20 MG (2 TABLETS) BY MOUTH ONCE A DAY FOR THREE DAYS, THEN 10 MG (1 TABLET) BY MOUTH ONCE A DAY FOR THREE DAYS. -STOP SMOKING! -IF YOU HAVE ANY FURTHER QUESTIONS OR CONCERNS, CONTACT MY OFFICE. Discharge Exam - Head Exam Head Exam: ATRAUMATIC, NORMAL INSPECTION, NORMOCEPHALIC - Eye Exam Eye Exam: EOMI, Normal appearance, PERRL Pupil Exam: NORMAL ACCOMODATION, PERRL - ENT Exam ENT Exam: Mucous Membranes Moist - Respiratory Exam Respiratory Exam: Clear to PA & Lateral, NORMAL BREATHING PATTERN - Cardiovascular Exam Cardiovascular Exam: REGULAR RHYTHM, +S1, +S2 - GI/Abdominal Exam GI & Abdominal Exam: Normal Bowel Sounds Discharge Plan - Discharge Medications Prescriptions: Moxifloxacin [Avelox] 400 mg PO DAILY #3 tab predniSONE [predniSONE Tab] See Taper PO DAILY #30 tab - Follow Up Plan Condition: STABLE Disposition: HOME/ ROUTINE Instructions: Prednisone (By mouth), Moxifloxacin (By mouth), Acute Bronchitis (GEN) Additional Instructions: -FOLLOW UP WITH DR. GREGORY IN THE OFFICE WITHIN 7 DAYS---CALL THE OFFICE TO MAKE AN APPOINTMENT. -CONTINUE HOME MEDICATIONS USUAL, INCLUDING YOUR BREATHING TREATMENTS AND COUGH SYRUP. -NEW PRESCRIPTIONS INCLUDE: 1) AVELOX (ANTIBIOTIC) 400 MG (TAKE ONE TABLET) ONCE A DAY FOR THREE MORE DAYS. START TAKING THIS TOMORR, 06/21/17. 2) PREDNISONE (STEROID FOR INFLAMMATION IN YOUR LUNGS); EVERY THREE DAYS THE DOSE WILL CHANGE; TAKE EXACTLY PRESCRIBED: START WITH 40 MG (4 TABLETS) BY MOUTH ONCE A DAY FOR THREE DAYS, THEN 30 MG (3 TABLETS) BY MOUTH ONCE A DAY FOR THREE DAYS, THEN 20 MG (2 TABLETS) BY MOUTH ONCE A DAY FOR THREE DAYS, THEN 10 MG (1 TABLET) BY MOUTH ONCE A DAY FOR THREE DAYS. -STOP SMOKING! -IF YOU HAVE ANY FURTHER QUESTIONS OR CONCERNS, CONTACT DR. GREGORY'S OFFICE. Referrals: Tylor Gregory MD [Staff Provider] -
== END 2017-06-20 13:44 | disposition home or self-care (01) ==
LOC: C.ER 08:54 → C.9E 11:04 → C.3T 13:49
PROVIDERS: ADMIT Internal Medicine; ATTEND Internal Medicine
DX: J44.0 Chronic obstructive pulmonary disease with (acute) lower respiratory infection (principal); J20.9 Acute bronchitis, unspecified; J44.1 Chronic obstructive pulmonary disease with (acute) exacerbation; G30.9 Alzheimer's disease, unspecified; I10 Essential (primary) hypertension; F20.9 Schizophrenia, unspecified; F17.200 Nicotine dependence, unspecified, uncomplicated; F02.80 Dementia in other diseases classified elsewhere, unspecified severity, without behavioral disturbance, psychotic disturbance, mood disturbance, and anxiety; E78.00 Pure hypercholesterolemia, unspecified; E11.9 Type 2 diabetes mellitus without complications
CPT/HCPCS: 71045; 80053; 81001; 82948; 83880; 85025; 87040; 87086; 87804; 94640; 96365; 96366; 96372; 96375; 96376; 97116; 97162; 99285; G0378; G8978; G8979; J1650; J1885; J2280; J2920; J7040

== ENCOUNTER 2017-07-02 07:19 | Emergency (ER) | payer OTHER ==
[2017-07-02 07:19] VITALS: BMI 29.2
[2017-07-02 07:32] VITALS: RESP 16
--- NOTE | 2017-07-02 07:39 | C.PDOC ---
History Of Present Illness 67 year old female presents to the ED c/o left sided pain, chills, sweats that started yesterday. Patient was discharged from the Hospital on 06/20/17 where she was admitted for COPD exacerbation and bronchitis, patient was prescribed prednisone and antibiotics. Patient denies SOB, CP, cough, fever , nausea, vomit, recent travel. Time Seen by Provider: 07/02/17 07:24 Chief Complaint (Nursing): Cough, Cold, Congestion History Per: Patient History/Exam Limitations: no limitations Onset/Duration Of Symptoms: Days Current Symptoms Are (Timing): Still Present Reports Recently: Hospitalized (06/20/17) Recent travel outside of the [place]: No Additional History Per: Patient Past Medical History Reviewed: Historical Data, Nursing Documentation, Vital Signs Vital Signs: Last Vital Signs Temp 98.4 F 07/02/17 07:30 Pulse 72 07/02/17 07:30 Resp 16 07/02/17 07:30 BP 153/90 H 07/02/17 07:30 Pulse Ox 98 07/02/17 09:02 - Medical History PMH: Alzheimer's Disease, Anxiety, Asthma, Bronchitis, COPD, Dementia, Depression, HTN, Hypercholesterolemia, Schizophrenia Surgical History: Back Surgery - [facility] Procedures ASSISTANCE WITH RESPIRATORY VENTILATION, <24 HRS, CPAP (07/06/15) Family History: States: Unknown Family Hx - Social History Hx Tobacco Use: Yes (3 cigarettes daily) Hx Alcohol Use: No Hx Substance Use: No - Immunization History Hx Tetanus Toxoid Vaccination: No Hx Influenza Vaccination: No Hx Pneumococcal Vaccination: No Review Of Systems Constitutional: Positive for: Chills, Sweats, Other (left sided pain). Negative for: Fever Cardiovascular: Negative for: Chest Pain Respiratory: Negative for: Cough, Shortness of Breath Gastrointestinal: Negative for: Nausea, Vomiting, Abdominal Pain Skin: Negative for: Rash Neurological: Negative for: Weakness, Numbness, Headache Physical Exam - Physical Exam Appears: Non-toxic, No Acute Distress (respiratory), Other (mildly ill) Skin: Normal Color, Warm, Dry Head: Atraumatic, Normacephalic Eye(s): bilateral: Normal Inspection Nose: No Discharge, No Deformity Oral Mucosa: Moist Neck: Normal ROM, Supple Chest: Symmetrical, No Tenderness Cardiovascular: Rhythm Regular, Murmur Respiratory: Normal Breath Sounds, No Rales, No Rhonchi, No Wheezing Gastrointestinal/Abdominal: Soft, No Tenderness, No Guarding, No Rebound Extremity: Normal ROM, No Pedal Edema, No Deformity, No Swelling Neurological/Psych: Oriented x3, Normal Speech, Normal Cognition Gait: Steady ED Course And Treatment - Laboratory Results Result Diagrams: 07/02/17 09:19 07/02/17 09:19 ECG: Interpreted By Me ECG Rhythm: Sinus Rhythm ECG Interpretation: Normal Rate From EC O2 Sat by Pulse Oximetry: 98 (On RA) Pulse Ox Interpretation: Normal - Radiology CXR: Interpreted by Me CXR Interpretation: Yes: No Acute Disease Progress - Re-Evaluation Re-evaluation Note: 07/02/17 10:00 APPEARS COMFORTABLE NAD. LABS, CXR NO ACUTE CHANGES CMOPARED TO PRIOR. PS DOES NOT WANT ADDL ABX OR STEROID. PS WISHES DC HOME. - Data Reviewed Data Reviewed: Lab, Diagnostic imaging, EKG, Old records Medical Decision Making Medical Decision Making: Impression: left sided pain, chills, sweats Plan: * EKG * Labs * CXR * Duoneb 3 ml IH * Toradol 30 mg IVP * Influenza A B * Nebulizer treatment Disposition Counseled Patient/Family Regarding: Studies Performed, Diagnosis, Need For Followup - Disposition Referrals: YOUR,PMD [Other] Disposition: HOME/ ROUTINE Disposition Time: 10:01 Condition: IMPROVED Instructions: COPD (Chronic Obstructive Pulmonary Disease) (ED) Forms: [employer] (Citizen Of [place]) Print Language: BHUTANESE - Clinical Impression Clinical Impression: Chest wall pain, COPD with exacerbation - Scribe Statement The provider has reviewed the documentation as recorded by the Scribnikki Camacho All medical record entries made by the Scribe were at my direction and personally dictated by me. I have reviewed the chart and agree that the record accurately reflects my personal performance of the history, physical exam, medical decision making, and the department course for this patient. I have also personally directed, reviewed, and agree with the discharge instructions and disposition.
[2017-07-02 09:23] LABS: BASO # 0.1 K/uL (0.0-0.2); BASO % 0.5 % (0.0-2.0); EOS % 0.3 % (0.0-4.0); HEMOGLOBIN 12.4 g/dL (11.0-16.0); LYMPH # 1.8 K/uL (1.0-4.3); LYMPH % 16.3 % (20.0-40.0); MEAN CELL VOLUME 85.1 fL (81.0-99.0); MEAN CORPUSCULAR HEMOGLOBIN 28.2 pg (27.0-31.0); MEAN CORPUSCULAR HGB CONC 33.2 g/dL (33.0-37.0); MEAN PLATELET VOLUME 7.6 fL (7.2-11.7); MONO # 0.6 K/uL (0.0-0.8); NEUT # 8.6 K/uL (1.8-7.0); NEUT % 77.9 % (50.0-75.0); RBC 4.39 Mil/uL (3.80-5.20); WHITE BLOOD COUNT 11.1 K/uL (4.8-10.8)
[2017-07-02] MEDS: Albuterol-Ipratrop 3 mg / 0.5 (3 ml) UD IH SCH ×3 (09:25→09:54)
[2017-07-02] MEDS ORDERED: Albuterol-Ipratrop 3 mg / 0.5 (3 ml) UD ONE (09:28)
[2017-07-02 09:37] LABS: ALB/GLOB RATIO 1.2 (1.0-2.1); ALBUMIN 3.6 g/dL (3.5-5.0); ALT/SGPT 37 U/L (9-52); AST/SGOT 17 U/L (14-36); BLOOD UREA NITROGEN 22 mg/dL (7-17); CALCIUM 8.7 mg/dl (8.6-10.4); GFR AFRICAN-AMERICAN > 60; GFR NON-AFRICAN AMERICAN > 60
--- NOTE | 2017-07-02 09:40 | RAD ---
PROCEDURE: CHEST RADIOGRAPH, 1 VIEW HISTORY: SOB COMPARISON: Comparison chest radiograph 06/18/2014 FINDINGS: LUNGS: Minor bibasilar atelectasis left greater PLEURA: No pneumothorax or pleural fluid seen. CARDIOVASCULAR: Normal. OSSEOUS STRUCTURES: No significant abnormalities. VISUALIZED UPPER ABDOMEN: Normal. OTHER FINDINGS: None. IMPRESSION: Minor bibasilar atelectasis left greater
[2017-07-02 10:28] VITALS: BP 140/80; PULSE 80; TEMP 98.2; O2SAT 99
--- NOTE | 2017-07-03 12:21 | CARD ---
APPROVED REPORT EKG Measurement Heart [id number] <Conclusion> Normal sinus rhythm Normal ECG
== END 2017-07-02 10:27 | disposition home or self-care (01) ==
LOC: C.ER 07:19
DX: J44.1 Chronic obstructive pulmonary disease with (acute) exacerbation (principal); R07.89 Other chest pain
CPT/HCPCS: 71045; 80053; 85025; 87804; 93005; 94150; 94640; 96374; 99284; J1885

== ENCOUNTER 2018-05-04 10:37 | Emergency (ER) | payer OTHER ==
[2018-05-04 10:37] VITALS: BMI 29.2
[2018-05-04 10:51] VITALS: BP 113/70; PULSE 104; RESP 17; TEMP 98.9; O2SAT 97
--- NOTE | 2018-05-04 11:04 | C.PDOC ---
History Of Present Illness Patient is a 67 year old Female with PMHx of HTN, Rheumatoid Arthritis, and Alzheimer's disease presents today for joint pain. Patient last had Humira and Methotrexate injections by her java mobile developer, Dr. Boucher on 04/15/18. Patient went to see Dr. Boucher today and was told to come to the ER. Patient says she has pain in her feet, knees, and hands for the past 3 days which she rates 10/10. Patient took Percocet for the pain today. Patient also admits to low back pain which radiates into the legs. Patient denies any numbness, tingling, incontinence, fevers, chills, abdominal pain, nausea, vomiting, constipation, or diarrhea. <Adriana Kruger - Last Filed: 05/04/18 14:46> History Per: Patient History/Exam Limitations: clinical condition (hx alzheimer's disease) Onset/Duration Of Symptoms: Days Current Symptoms Are (Timing): Worse Severity: Severe Pain Scale Rating Of: 10 Location: knee, ankle, wrist pain <Adriana Kruger - Last Filed: 05/04/18 14:46> <Ricky Clark - Last Filed: 05/06/18 18:52> Time Seen by Provider: 05/04/18 11:04 Chief Complaint (Nursing): Pain, Chronic Past Medical History Vital Signs: Last Vital Signs Temp 98.9 F 05/04/18 10:47 Pulse 104 H 05/04/18 10:47 Resp 17 05/04/18 10:47 BP 113/70 05/04/18 10:47 Pulse Ox 97 05/04/18 10:47 - Medical History PMH: Alzheimer's Disease, Anxiety, Asthma, Bronchitis, COPD, Dementia, Depression, HTN, Hypercholesterolemia, Rheumatoid Arthritis, Schizophrenia Surgical History: Back Surgery - [facility] Procedures ASSISTANCE WITH RESPIRATORY VENTILATION, <24 HRS, CPAP (07/06/15) Family History: States: Unknown Family Hx - Social History Hx Tobacco Use: Yes (3 cigarettes daily) Hx Alcohol Use: No Hx Substance Use: No - Immunization History Hx Tetanus Toxoid Vaccination: No Hx Influenza Vaccination: No Hx Pneumococcal Vaccination: No <Adriana Kruger - Last Filed: 05/04/18 14:46> Vital Signs: Last Vital Signs Temp 98.9 F 05/04/18 10:47 Pulse 104 H 05/04/18 10:47 Resp 17 05/04/18 10:47 BP 113/70 05/04/18 10:47 Pulse Ox 97 05/04/18 14:55 - [facility] Procedures ASSISTANCE WITH RESPIRATORY VENTILATION, <24 HRS, CPAP (07/06/15) <Ricky Clark - Last Filed: 05/06/18 18:52> Review Of Systems Constitutional: Negative for: Fever, Chills Cardiovascular: Negative for: Chest Pain, Palpitations Respiratory: Negative for: Shortness of Breath Gastrointestinal: Negative for: Nausea, Vomiting, Abdominal Pain, Diarrhea, Constipation Genitourinary: Negative for: Dysuria Musculoskeletal: Positive for: Back Pain, Hand Pain, Leg Pain, Foot Pain Skin: Negative for: Rash, Bruising Neurological: Negative for: Weakness, Numbness <Adriana Kruger - Last Filed: 05/04/18 14:46> Physical Exam - Physical Exam Appears: Non-toxic, In Acute Distress Skin: Normal Color, Warm, Dry Head: Atraumatic, Normacephalic Eye(s): bilateral: Normal Inspection Cardiovascular: Rhythm Regular Respiratory: Normal Breath Sounds, No Accessory Muscle Use, No Rales, No Rhonchi, No Wheezing Gastrointestinal/Abdominal: Normal Exam, Bowel Sounds, Soft, No Tenderness Extremity: No Normal ROM (decreased ROM secondary to chronic RA pain), No Swelling Extremity: Bilateral: Painful To Bear Weight (chronic) Gait: With Assistance <Adriana Kruger - Last Filed: 05/04/18 14:46> ED Course And Treatment - Laboratory Results Result Diagrams: 05/04/18 11:59 05/04/18 11:59 ECG: Interpreted By Me, Viewed By Me ECG Rhythm: Sinus Rhythm Interpretation Of ECG: Normal sinus rhythm - no ST elevations Rate From EC O2 Sat by Pulse Oximetry: 97 - Other Rad L hip xray X-Ray: Read By Radiologist Interpretation: IMPRESSION: Normal left hip radiographs. Degenerative disc disease at L4-5. L knee xray X-Ray: Read By Radiologist Interpretation: IMPRESSION: Normal radiographs of the left knee. foot xray X-Ray: Read By Radiologist Interpretation: IMPRESSION: Normal right foot radiographs. left ankle xray X-Ray: Read By Radiologist Interpretation: IMPRESSION: Normal left ankle radiographs. - CT Scan/US abd/pelvis CT Other Rad Studies (CT/US): Radiology Report Reviewed CT/US Interpretation: IMPRESSION: No acute intra abdominal pathology. Multilevel degenerative spondylosis most notably affecting the L4-L5 level where there is a irregular disc herniation that compresses the thecal sac which jazmin ears to result in bilateral lateral recess as well as central canal stenosis and compressive effects on the thecal sac. Degenerative changes are also seen at several additional levels mentioned above. Right renal cyst <Adriana Kruger - Last Filed: 05/04/18 14:46> - Laboratory Results Result Diagrams: 05/04/18 11:59 05/04/18 11:59 <Ricky Clark - Last Filed: 05/06/18 18:52> Medical Decision Making Medical Decision Making: Joint pain 03/07 ankle, hip and knee xrays done- negative Toradol 15mg IVP given Low back pain radiating down the buttocks abd and pelvis CT done which showed L4-L5 disc protrusion (chronic- known to patient and family) Coach Wirer's office called multiple times with no answer. Per patient's PMD, Dr. Gregory, patient to be admitted under observation for decreased ability to ambulate and weakness for PT and further evaluation. Explained to patient about staying for her pain and decreased ability to ambulate. The patient declines admission to the hospital and wishes to leave the Emergency Department. This action is against my medical advice. This decision was made with informed refusal. The patient was told that admission to the hospital is necessary. Explanation of the reasons why were discussed. The risks of leaving were explained to the patient and include, but are not limited to, worsening of known or currently unknown conditions, permanent disability and from undiagnosed or untreated conditions. The patient has the capacity to make this informed decision and understands my explanation of the current medical problem and risks of leaving. The patient voluntarily accepts these risks and signed an AMA form documenting our conversation. The patient was given the opportunity to ask questions and reconsider. The patient was encouraged to return to the Emergency Department at any time for further care. <Adriana Kruger - Last Filed: 05/04/18 14:46> Medical Decision Making: Pt noted to be ambulating well throughtout ER after given pain meds. States she does not want to stay: informed her of possible and or disability if she falls. I endorsed to her that her PMD wanted her to stay. She states she understands risks and does not think she will or be injured this way and that her pain has greatly improved. Given good capacity of understanding consequences: pt signed AMA. Endorsed to pt recc to return at any time for further evaluation. <Ricky Clark - Last Filed: 05/06/18 18:52> Disposition Counseled Patient/Family Regarding: Studies Performed, Diagnosis - Disposition Disposition Time: 14:30 <Adriana Kruger - Last Filed: 05/04/18 14:46> <Ricky Clark - Last Filed: 05/06/18 18:52> - Disposition Referrals: Tylor Gregory MD [Staff Provider] - Disposition: AGAINST MEDICAL ADVICE Condition: STABLE Additional Instructions: Patient to follow up with Dr. Gregory tomorrow. FUNMILAYO LANDAVERDE, thank you for letting us take care of you today. Your provider was Ricky Clark and you were treated for NOT FEELING WELL. The emergency medical care you received today was directed at your acute symptoms. It may take several days for your symptoms to resolve. Return to the Emergency Department if your symptoms worsen, do not improve, or if you have any other problems. Please contact your doctor or call one of the physicians/clinics you have been referred to that are listed on the Patient Visit Information form that is included in your discharge packet. Bring any paperwork you were given at discharge with you along with any medications you are taking to your follow up visit. Our treatment cannot replace ongoing medical care by a primary care provider outside of the emergency department. Thank you for allowing the [facility] team to be part of your care today. Instructions: Low Back Pain (DC) Forms: [employer] ([place]) Print Language: MALTESE - Clinical Impression Clinical Impression: Low back pain - PA / SERVICE OR WORK DISPATCHER / Resident Statement MD/DO has examined the patient and agrees with the treatment plan. (67 yr old F w/ hx of RA p/w chronic RA pain. Missed shot today and was seeking to have shots done in Emergency room. Note given to her by PCP states she has been to Dr. Bo office x2 times this year but does not state go to ER or recieve shots. Imaging unremarkable. Exam largely unremarkable. No Vertebral tenderness. No weakness on exam. Spoke to PMD who reccomended obs for PT. Pt seeks to sign out AMA. Pt has capacity and understanding- of potential consequences. AMA.) <Ricky Clark - Last Filed: 05/06/18 18:52>
[2018-05-04 12:03] LABS: BASO # 0.1 K/uL (0.0-0.2); BASO % 0.8 % (0.0-2.0); EOS # 0.1 K/uL (0.0-0.7); EOS % 1.2 % (0.0-4.0); HEMOGLOBIN 11.7 g/dL (11.0-16.0); LYMPH # 1.4 K/uL (1.0-4.3); LYMPH % 15.1 % (20.0-40.0); MEAN CELL VOLUME 85.7 fL (81.0-99.0); MEAN CORPUSCULAR HEMOGLOBIN 28.7 pg (27.0-31.0); MEAN CORPUSCULAR HGB CONC 33.4 g/dL (33.0-37.0); MEAN PLATELET VOLUME 7.5 fL (7.2-11.7); MONO # 0.8 K/uL (0.0-0.8); MONO % 8.6 % (0.0-10.0); NEUT % 74.3 % (50.0-75.0); RBC 4.09 Mil/uL (3.80-5.20); RED CELL DISTRIBUTION WIDTH 15.5 % (11.5-14.5); WHITE BLOOD COUNT 9.4 K/uL (4.8-10.8)
[2018-05-04 12:25] LABS: BLOOD UREA NITROGEN 13 mg/dL (7-17); GFR NON-AFRICAN AMERICAN 50
[2018-05-04 12:26] LABS: ALB/GLOB RATIO 1.2 (1.0-2.1); ALBUMIN 4.1 g/dL (3.5-5.0); ALT/SGPT 27 U/L (9-52); AST/SGOT 30 U/L (14-36); CALCIUM 8.8 mg/dl (8.6-10.4)
--- NOTE | 2018-05-04 14:11 | RAD ---
Date of service: 05/04/2018 PROCEDURE: Right Foot Radiographs. HISTORY: L foot pain COMPARISON: None. FINDINGS: BONES: Normal. No fracture. JOINTS: Normal. SOFT TISSUES: Normal. OTHER FINDINGS: None. IMPRESSION: Normal right foot radiographs.
--- NOTE | 2018-05-04 14:13 | RAD ---
PROCEDURE: Left Hip X-ray Radiographs. HISTORY: lumbar pain radiating COMPARISON: None. FINDINGS: BONES: Normal. No fracture. JOINTS: Normal. SOFT TISSUES: Normal. OTHER FINDINGS: Degenerative disc disease at L4-5 with vacuum disc phenomenon. IMPRESSION: Normal left hip radiographs. Degenerative disc disease at L4-5.
--- NOTE | 2018-05-04 14:14 | RAD ---
Date of service: 05/04/2018 PROCEDURE: Left Knee Radiographs. HISTORY: Pain. COMPARISON: None. FINDINGS: BONES: Normal. No fracture. JOINTS: Normal. No osteoarthritis. JOINT EFFUSION: None. OTHER FINDINGS: None. IMPRESSION: Normal radiographs of the left knee.
--- NOTE | 2018-05-04 14:15 | RAD ---
Date of service: 05/04/2018 PROCEDURE: Left Ankle Radiographs. HISTORY: L ankle pain COMPARISON: None available. FINDINGS: BONES: Normal. No fracture. JOINTS: Normal. No osteoarthritis. Ankle mortise maintained. Talar dome intact SOFT TISSUES: Normal. OTHER FINDINGS: None. IMPRESSION: Normal left ankle radiographs.
--- NOTE | 2018-05-04 14:44 | CT ---
Date of service: 05/04/2018 PROCEDURE: CT Abdomen and Pelvis . HISTORY: Lumbar pain radiating to buttocks. COMPARISON: None. TECHNIQUE: Contiguous axial images of the abdomen and pelvis without oral or intravenous contrast material. Coronal and Sagittal reformats generated. Radiation dose: Total exam DLP = 685.24 mGy-cm. This CT exam was performed using one or more of the following dose reduction techniques: Automated exposure control, adjustment of the mA and/or kV according to patient size, and/or use of iterative reconstruction technique. FINDINGS: LOWER THORAX: Mild passive/dependent type atelectasis both posterior lower lung becker. There also appears to be some localized areas of linear and nodular scarring in the middle lobe and lingular regions. LIVER: Unremarkable. No gross lesion or ductal dilatation. GALLBLADDER AND BILE DUCTS: Unremarkable. PANCREAS: Pancreas atrophic and fatty replaced. No obvious masses or collections.. No ductal dilatation. SPLEEN: Unremarkable. No splenomegaly. Small splenule present. ADRENALS: No adrenal lesions. KIDNEYS AND URETERS: Unremarkable. No stone or hydronephrosis. BLADDER: Miryam urinary bladder incompletely distended which in part accounts for thick-walled appearance. Correlation with urinalysis recommended to assess for possible cystitis REPRODUCTIVE: Unremarkable as visualized. APPENDIX: Normal appendix BOWEL: Evaluation of the bowel is slightly limited due to the lack of oral contrast material.. No gross bowel related abnormalities. PERITONEUM: Unremarkable. No fluid collection. No free air. There is a [id number] fat containing umbilical hernia. LYMPH NODES: Unremarkable. No enlarged lymph nodes. VASCULATURE: Unremarkable. No aortic aneurysm. Mild aortic atherosclerotic calcification or mural plaque present. BONES: No acute fractures. Multilevel degenerative spondylosis of the lumbar spine most notably affecting the L4-L5 level. Marked disc space narrowing vacuum disc phenomena endplate eburnation with a moderate-size moderate-sized irregular disc herniation with subligamentous superior and inferior extension over short distance former more so than latter. Changes do result in compressive effects on the thecal sac and presumed nerve roots of the cauda equina. Bilateral lateral recess stenosis. Facets also hypertrophic and flavum buckled at this level. Less severe changes seen at the L1-L2, L5-S1 and L3-L4 levels in somewhat decreasing order of severity with the varying sizes of broad-based disc bulges. OTHER FINDINGS: None. IMPRESSION: No acute intra abdominal pathology. Multilevel degenerative spondylosis most notably affecting the L4-L5 level where there is a irregular disc herniation that compresses the thecal sac which appears to result in bilateral lateral recess as well as central canal stenosis and compressive effects on the thecal sac. Degenerative changes are also seen at several additional levels mentioned above. Right renal cyst
--- NOTE | 2018-05-08 18:58 | CARD ---
APPROVED REPORT Date of service: 05/04/2018 EKG Measurement Heart [id number] <Conclusion> Normal sinus rhythm Possible Left atrial enlargement Borderline ECG
== END 2018-05-04 14:46 | disposition left against medical advice (07) ==
LOC: C.ER 10:37
DX: M54.5 Low back pain (principal)

== ENCOUNTER 2018-05-26 00:36 | Inpatient (IN) | payer OTHER ==
[2018-05-26 00:36] VITALS: BMI 29.2
[2018-05-26] MEDS ORDERED: Sodium Chloride 0.9% 2,500 ML IV STA (00:59)
--- NOTE | 2018-05-26 01:18 | C.PDOC ---
History Of Present Illness 67 year old female brought in by EMS from halfway for altered mental status. EMS states patient was unresponsive and had pinpoint pupils, 2mg narcan given, patient began alert. 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 Full HPI unobtainable due to patient's clinical condition. PMD: Dr. Erik He Time Seen by Provider: 05/26/18 00:53 Chief Complaint (Nursing): Altered Mental Status History Per: EMS History/Exam Limitations: Clinical Condition Onset/Duration Of Symptoms: Hrs Onset Of Symptoms: Cannot Confirm Onset Recent travel outside of the [place]: No Past Medical History Reviewed: Historical Data, Nursing Documentation, Vital Signs Vital Signs: Last Vital Signs Temp 100.4 F H 05/26/18 00:43 Pulse 100 H 05/26/18 00:43 Resp 22 05/26/18 00:43 BP 93/56 L 05/26/18 00:43 Pulse Ox 94 L 05/26/18 00:43 - Medical History PMH: Alzheimer's Disease, Anxiety, Asthma, Bronchitis, COPD, Dementia, Depression, HTN, Hypercholesterolemia, Rheumatoid Arthritis, Schizophrenia Surgical History: Back Surgery - [facility] Procedures ASSISTANCE WITH RESPIRATORY VENTILATION, <24 HRS, CPAP (07/06/15) Family History: States: Unknown Family Hx - Social History Hx Tobacco Use: Yes (3 cigarettes daily) Hx Alcohol Use: No Hx Substance Use: No - Immunization History Hx Tetanus Toxoid Vaccination: No Hx Influenza Vaccination: No Hx Pneumococcal Vaccination: No Review Of Systems Review Of Systems: ROS cannot be obtained secondary to pt's inabilty to answer questions. Physical Exam - Physical Exam Additional Physical Exam Comments: Constitutional: No acute distress. Head: Normocephalic. Atraumatic. Eyes: PERRL. ENT: Moist mucous membranes. Neck: Supple. Cardiovascular: Regular rate. Radial pulse 2+ bilaterally. Chest: No tenderness. Respiratory: Borderline tachycardic. GI: Soft. Nontender. Nondistended. Genitals: Bosch in place. Back: No CVA tenderness. Musculoskeletal: No tenderness or swelling of extremities. Skin: Warm to touch. Neurologic: Awake. Alert, Answers simple questions. ED Course And Treatment - Laboratory Results Result Diagrams: 05/26/18 01:17 05/26/18 01:17 O2 Sat by Pulse Oximetry: 94 (Room air) Pulse Ox Interpretation: Normal Medical Decision Making Medical Decision Making: Blood work, EKG, CXR, and urinalysis ordered. IV fluids and tylenol administered. CXR no consolidation. EKG NSR 95 bpm, no ST elevations. UA shows UTI. Culture sent. Antibiotics initaited. CODE SEPSIS called. Dr. Gregory accepts patient to his service. Dr. Mckeon accepts to ICU. Disposition - Disposition Disposition: HOSPITALIZED Disposition Time: 02:30 Condition: CRITICAL - POA Core Measure Indicators: Code Sepsis - Clinical Impression Clinical Impression: Septic shock, UTI (urinary tract infection), Drug overdose - Scribe Statement The provider has reviewed the documentation as recorded by the Scribe Juan Pablo Brown All medical record entries made by the Scribe were at my direction and personally dictated by me. I have reviewed the chart and agree that the record accurately reflects my personal performance of the history, physical exam, medical decision making, and the department course for this patient. I have also personally directed, reviewed, and agree with the discharge instructions and disposition.
[2018-05-26 01:20] LABS: BASO # 0.1 K/uL (0.0-0.2); BASO % 0.5 % (0.0-2.0); EOS # 0.2 K/uL (0.0-0.7); EOS % 1.8 % (0.0-4.0); HEMOGLOBIN 9.4 g/dL (11.0-16.0); LYMPH # 2.2 K/uL (1.0-4.3); LYMPH % 21.3 % (20.0-40.0); MEAN CELL VOLUME 86.5 fL (81.0-99.0); MEAN CORPUSCULAR HEMOGLOBIN 28.2 pg (27.0-31.0); MEAN CORPUSCULAR HGB CONC 32.6 g/dL (33.0-37.0); MEAN PLATELET VOLUME 7.1 fL (7.2-11.7); MONO # 1.1 K/uL (0.0-0.8); NEUT # 6.7 K/uL (1.8-7.0); NEUT % 65.4 % (50.0-75.0); RBC 3.34 Mil/uL (3.80-5.20); RED CELL DISTRIBUTION WIDTH 15.9 % (11.5-14.5); WHITE BLOOD COUNT 10.3 K/uL (4.8-10.8)
[2018-05-26 01:26] LABS: VENOUS BLOOD GAS BASE EXCESS 1.5 mmol/L (0.0-2.0); VENOUS BLOOD GAS PCO2 49 mmHg (40-60); VENOUS BLOOD GAS PO2 20 mm/Hg (30-55); VENOUS BLOOD PH 7.36 (7.32-7.43)
[2018-05-26 01:32] LABS: ALBUMIN 3.7 g/dL (3.5-5.0)
[2018-05-26 01:37] LABS: PH,URINE 5.5 (5.0-8.0); URINE BACTERIA MANY (<OCC); URINE BILIRUBIN NEGATIVE (NEGATIVE); URINE BLOOD LARGE (NEGATIVE); URINE CLARITY Turbid (Clear); URINE COLOR YELLOW (YELLOW); URINE GLUCOSE (UA) NEGATIVE (Normal); URINE HYALINE CAST >20 /lpf (0-2); WBC CLUMPS MANY /hpf
[2018-05-26] MEDS ORDERED: Cefepime IV 2 gm in Dextrose 2 GM/100 ML BAG IVPB STA (01:37)
[2018-05-26] MEDS ORDERED: Vancomycin 1 gm/NS 200 ml 1 GM/200 ML BAG IVPB STA (01:37)
[2018-05-26 01:38] LABS: URINE LEUKOCYTE ESTERASE LARGE Leu/uL (Negative); URINE PROTEIN NEGATIVE (NEGATIVE); URINE UROBILINOGEN 0.2 mg/dL (0.2-1.0)
[2018-05-26 02:02] LABS: INR 1.2; PROTHROMBIN TIME 12.6 SECONDS (9.7-12.2)
[2018-05-26] MEDS ORDERED: Sodium Chloride 0.9% 500 ML IV ONE (02:41)
[2018-05-26 02:57] LABS: BARBITURATES, UR NEGATIVE (NEGATIVE); OPIATES, UR NEGATIVE (NEGATIVE); PHENCYCLIDINE, UR NEGATIVE (NEGATIVE)
[2018-05-26 02:59] LABS: BENZODIAZEPINES, UR POSITIVE (NEGATIVE)
[2018-05-26] MEDS ORDERED: Lidocaine 2% Jelly (30 ml) TOP SCH (03:00)
[2018-05-26] MEDS ORDERED: Oxycodone/Acetaminophen 5/325 mg Tab PO PRN (03:04)
[2018-05-26] MEDS ORDERED: Albuterol HFA 90 mcg/actuation (8 g) INH PRN (03:04)
[2018-05-26] MEDS ORDERED: Magnesium Hydroxide Susp 30 ml UD PO PRN (03:04)
--- NOTE | 2018-05-26 03:18 | CP.PCM.CON ---
History of Present Illness - History of Present Illness History of Present Illness: Attending: Angela He Reason for Consult: Critical care Management Chief Complaint: Altered Mental Status The Patient was seen and examined in the ED HPI: The Hx was obtained from the ED Physician and after review of the laboratory and medical records the patient is very lethargic. This is a 67 years old female residing at the [facility] who has hx of DM, Asthma, Depression and chronic Back pain. She was found unresponsive with pin pointed pupils and hypotensive BP 80/60mmHg. EMS gave Narcan and IV fluids and she became easily arousable and verbally responsive initially but fell again in to a stuporous state. In the ED the temperature was 100.4F, pH 7.36, PCO2 of 49 and newly elevated BUN and Creatinine. Benzodiazepines was Positive. PMH: Alzheimer's Disease, Anxiety and Depression; Asthma, Bronchitis and COPD; HTN; HLD; RA; Schizophrenia;DM II; PSH: Back Surgery with Laminectomy SH: Light smoker 3 cigarettes daily; No ETOH; No illegal drug use; Reside at the [facility] FH: No Known family hx as per hx Allergies: NKDA Medication: Reviewed Review of Systems - Review of Systems Systems not reviewed;Unavailable: Dementia, Altered Mental Status Review of Systems: Review of system is limited because of Altered mental status. Past Patient History - Infectious Disease Hx of Infectious Diseases: None - Past Medical History & Family History Past Medical History?: Yes - Past Social History Smoking Status: Light Smoker < 10 Cigarettes Daily Chewing Tobacco Use: No Cigar Use: No Alcohol: None Drugs: Denies, Inhalants Home Situation {Lives}: Assisted - CARDIAC Hx Hypercholesterolemia: Yes Hx Hypertension: Yes - PULMONARY Hx Asthma: Yes Hx Bronchitis: Yes Hx Chronic Obstructive Pulmonary Disease (COPD): Yes - NEUROLOGICAL Hx Alzheimer's Disease: Yes Hx Dementia: Yes - HEENT Hx HEENT Problems: No - RENAL Hx Chronic Kidney Disease: No - ENDOCRINE/METABOLIC Hx Diabetes Mellitus Type 2: Yes - HEMATOLOGICAL/ONCOLOGICAL Hx Blood Disorders: No - INTEGUMENTARY Hx Dermatological Problems: No - MUSCULOSKELETAL/RHEUMATOLOGICAL Hx Musculoskeletal Disorders: Yes Hx Back Pain: Yes Hx Rheumatoid Arthritis: Yes - GASTROINTESTINAL Hx Gastrointestinal Disorders: No - GENITOURINARY/GYNECOLOGICAL Hx Genitourinary Disorders: No - PSYCHIATRIC Hx Anxiety: Yes Hx Depression: Yes Hx Schizophrenia: Yes Hx Substance Use: No - SURGICAL HISTORY Hx Surgeries: Yes Hx Musculoskeletal Surgery: Yes (LAMINECTOMY) - ANESTHESIA Hx Anesthesia: Yes Hx Anesthesia Reactions: No Hx Malignant Hyperthermia: No Meds Allergies/Adverse Reactions: Allergies Allergy/AdvReac Type Severity Reaction Status Date / Time No Known Allergies Allergy Verified 05/26/18 00:55 - Medications Medications: Current Medications Acetaminophen (Tylenol 325mg Tab) 650 mg PO Q4 PRN PRN Reason: Fever >100.4 F Al Hydrox/Mg Hydrox/Simethicone (Maalox Plus 30 Ml) 30 ml PO Q4 [facility] Albuterol (Ventolin Hfa 90 Mcg/Actuation (8 G)) 1 puff INH RQ6 PRN PRN Reason: Shortness of Breath Enoxaparin Sodium (Lovenox) 40 mg SC DAILY [facility] Sodium Chloride (Sodium Chloride 0.9%) 2,500 mls @ 1,000 mls/hr IV .Q2H30M STA Stop: 05/26/18 03:28 Last Admin: 05/26/18 01:26 Dose: 1,000 mls/hr Cefepime HCl 2 gm/ Sodium (Chloride) 50 mls @ 100 mls/hr IVPB Q12 [facility]; Protocol Sodium Chloride (Sodium Chloride 0.9%) 500 mls @ 125 mls/hr IV .Q4H ONE Stop: 05/26/18 06:40 Vancomycin HCl 1 gm/ Sodium (Chloride) 250 mls @ 166.7 mls/hr IVPB Q24H [facility]; Protocol Last Admin: 05/26/18 03:01 Dose: Not Given Lamotrigine (Lamictal) 100 mg PO BID [facility] Lidocaine (Lidocaine 5%) gm TOP ASDIR [facility] Lidocaine HCl (Xylocaine 2%) 1 ea TOP ONCE [facility] Magnesium Hydroxide (Milk Of Magnesia) 30 ml PO ONCE PRN PRN Reason: Constipation Oxycodone/Acetaminophen (Percocet 5/325 Mg Tab) 1 tab PO Q4H PRN PRN Reason: Pain, moderate (4-7) Stop: 05/29/18 03:05 Quetiapine Fumarate (Seroquel) 150 mg PO HS [facility] Quetiapine Fumarate (Seroquel Xr) 150 mg PO HS [facility] Rosuvastatin Calcium (Crestor) 20 mg PO HS [facility] Physical Exam - Constitutional Appears: No Acute Distress Additional comments: Appears to be asleep but only responding to painful stimuli. - Head Exam Head Exam: ATRAUMATIC, NORMAL INSPECTION, NORMOCEPHALIC - Eye Exam Additional comments: Not opening eyes even to painful stimuli Pupils pin pointed. - ENT Exam ENT Exam: Mucous Membranes Dry, Normal Exam, Normal External Ear Exam - Neck Exam Neck exam: Positive for: Normal Inspection - Respiratory Exam Respiratory Exam: Clear to Auscultation Bilateral. absent: Rales, Rhonchi, Wheezes - Cardiovascular Exam Cardiovascular Exam: REGULAR RHYTHM, RRR, +S1, +S2. absent: Gallop - GI/Abdominal Exam GI & Abdominal Exam: Normal Bowel Sounds, Soft. absent: Mass, Organomegaly, Tenderness - Rectal Exam Rectal Exam: Deferred - Extremities Exam Extremities exam: Positive for: normal inspection. Negative for: pedal edema - Back Exam Back exam: NORMAL INSPECTION - Neurological Exam Additional comments: Responds with crying out with to painful stimuli of sternal rub with withdrawal. Pupils pin pointed, no facial droop, have not moved the upper nor lower extremities. Justin: Motor withdrawal to pain= 4 No speech= 1 Not opening eyes to pain =1 Total of 6 - Psychiatric Exam Additional comments: Unresponsive - Skin Skin Exam: Dry, Normal Color, Warm Results - Vital Signs Recent Vital Signs: Last Vital Signs Temp 100.4 F H 05/26/18 01:25 Pulse 94 H 05/26/18 02:45 Resp 16 05/26/18 02:45 BP 102/45 L 05/26/18 02:45 Pulse Ox 97 05/26/18 02:45 - Labs Result Diagrams: 05/26/18 01:17 05/26/18 01:17 Labs: Laboratory Results - last 24 hr 05/26/18 05/26/18 05/26/18 01:17 01:17 01:17 WBC 10.3 RBC 3.34 L Hgb 9.4 L D Hct 28.9 L MCV 86.5 MCH 28.2 MCHC 32.6 L RDW 15.9 H Plt Count 460 H D MPV 7.1 L Neut % (Auto) 65.4 Lymph % (Auto) 21.3 Glynn % (Auto) 11.0 H Eos % (Auto) 1.8 Baso % (Auto) 0.5 Neut # (Auto) 6.7 Lymph # (Auto) 2.2 Glynn # (Auto) 1.1 H Eos # (Auto) 0.2 Baso # (Auto) 0.1 PT 12.6 H INR 1.2 APTT 20 L pO2 VBG pH VBG pCO2 VBG HCO3 VBG Total CO2 VBG O2 Sat (Calc) VBG Base Excess VBG Potassium Glucose Lactate Sodium Potassium Chloride Carbon Dioxide Anion Gap BUN Creatinine Est GFR ( Amer) Est GFR (Non-Af Amer) POC Glucose (mg/dL) Random Glucose Calcium Phosphorus Magnesium Total Bilirubin AST ALT Alkaline Phosphatase Total Protein Albumin Globulin Albumin/Globulin Ratio Venous Blood Potassium Urine Color Yellow Urine Clarity Turbid Urine pH 5.5 Ur Specific [place] 1.010 Urine Protein Negative Urine Glucose (UA) Negative Urine Ketones Negative Urine Blood Large Urine Nitrate Negative Urine Bilirubin Negative Urine Urobilinogen 0.2 Ur Leukocyte Esterase Large Urine WBC (Auto) 8542 H Urine RBC (Auto) 420 H Urine WBC Clumps (Auto) Many H Urine Bacteria Many H Hyaline Casts >20 H Urine Yeast (Budding) Many H Urine Opiates Screen Urine Methadone Screen Ur Barbiturates Screen Ur Phencyclidine Scrn Ur Amphetamines Screen U Benzodiazepines Scrn U Oth Cocaine Metabols U Cannabinoids Screen 05/26/18 05/26/18 05/26/18 01:17 01:22 02:38 WBC RBC Hgb Hct MCV MCH MCHC RDW Plt Count MPV Neut % (Auto) Lymph % (Auto) Glynn % (Auto) Eos % (Auto) Baso % (Auto) Neut # (Auto) Lymph # (Auto) Glynn # (Auto) Eos # (Auto) Baso # (Auto) PT INR APTT pO2 20 L VBG pH 7.36 VBG pCO2 49 VBG HCO3 24.2 VBG Total CO2 29.2 H VBG O2 Sat (Calc) 35.0 L VBG Base Excess 1.5 VBG Potassium 4.8 Glucose 110 H Lactate 2.0 Sodium 135 140.0 Potassium 4.3 Chloride 99 106.0 Carbon Dioxide 22 Anion Gap 19 BUN 46 H Creatinine 3.1 H Est GFR ( Amer) 18 Est GFR (Non-Af Amer) 15 POC Glucose (mg/dL) Random Glucose 114 H Calcium 8.0 L Phosphorus 5.1 H Magnesium 2.9 H Total Bilirubin 0.5 AST 132 H D ALT 48 Alkaline Phosphatase 112 Total Protein 7.4 Albumin 3.7 Globulin 3.8 Albumin/Globulin Ratio 1.0 Venous Blood Potassium 4.8 Urine Color Urine Clarity Urine pH Ur Specific [place] Urine Protein Urine Glucose (UA) Urine Ketones Urine Blood Urine Nitrate Urine Bilirubin Urine Urobilinogen Ur Leukocyte Esterase Urine WBC (Auto) Urine RBC (Auto) Urine WBC Clumps (Auto) Urine Bacteria Hyaline Casts Urine Yeast (Budding) Urine Opiates Screen Negative Urine Methadone Screen Negative Ur Barbiturates Screen Negative Ur Phencyclidine Scrn Negative Ur Amphetamines Screen Negative U Benzodiazepines Scrn Positive U Oth Cocaine Metabols Negative U Cannabinoids Screen Negative 05/26/18 02:56 WBC RBC Hgb Hct MCV MCH MCHC RDW Plt Count MPV Neut % (Auto) Lymph % (Auto) Glynn % (Auto) Eos % (Auto) Baso % (Auto) Neut # (Auto) Lymph # (Auto) Glynn # (Auto) Eos # (Auto) Baso # (Auto) PT INR APTT pO2 VBG pH VBG pCO2 VBG HCO3 VBG Total CO2 VBG O2 Sat (Calc) VBG Base Excess VBG Potassium Glucose Lactate Sodium Potassium Chloride Carbon Dioxide Anion Gap BUN Creatinine Est GFR ( Amer) Est GFR (Non-Af Amer) POC Glucose (mg/dL) 133 H Random Glucose Calcium Phosphorus Magnesium Total Bilirubin AST ALT Alkaline Phosphatase Total Protein Albumin Globulin Albumin/Globulin Ratio Venous Blood Potassium Urine Color Urine Clarity Urine pH Ur Specific [place] Urine Protein Urine Glucose (UA) Urine Ketones Urine Blood Urine Nitrate Urine Bilirubin Urine Urobilinogen Ur Leukocyte Esterase Urine WBC (Auto) Urine RBC (Auto) Urine WBC Clumps (Auto) Urine Bacteria Hyaline Casts Urine Yeast (Budding) Urine Opiates Screen Urine Methadone Screen Ur Barbiturates Screen Ur Phencyclidine Scrn Ur Amphetamines Screen U Benzodiazepines Scrn U Oth Cocaine Metabols U Cannabinoids Screen - Imaging and Cardiology Chest x-ray Status: Image reviewed by me Additional comment: No infiltrate Assessment & Plan - Assessment and Plan (Free Text) Assessment: #. Altered Mental Status #. UTI #. Sepsis #. Benzodiazepine overdose #. Acute Renal Failure #. Normocytic Anemia #. DM II #. Chronic Back pain Plan: 67 years old female residing at the [facility] who has hx of DM, Asthma, Depression and chronic Back pain, found unresponsive and hypotensive. In the ED the temperature was 100.4F, pH 7.36, PCO2 of 49 and newly elevated BUN and Creatinine. Benzodiazepines was Positive. #. Altered Mental Status secondary to toxic encephalopathy and Benzodiazepine overdose - Admit To ICU - CT Hed to r/o CVA - Treat Infection - Reverse Benzo partially to identify this as being the cause of the unresponsiveness #. UTI - Urine UA, Culture and Sensitivity - Cefepime #. Sepsis - ID on Consult - Blood Culture - Urine culture - Vancomycin - Cefepime - IV Fluids - Follow Up lactic Acid #. Benzodiazepine overdose - Romazicon #. Acute Renal Failure - IV Fluids - Follow Renal labs #. Normocytic Anemia - Follow Hb #. DM II - HbA1c - Aspart sliding scale according to Accucheck Q6H #. Chronic Back pain - Pain management #. Asthma/COPD - Bronchodilators #. DVT Prophylaxis wioth SCD and Lovenox #. Code Atatus: Full - Date & Time Date: 05/26/18 Time: 03:18
[2018-05-26] MEDS ORDERED: Alum-Mag Hydrox-Simethicone Susp (30 mL) PO SCH (04:00)
[2018-05-26] MEDS ORDERED: Naloxone 0.4 mg/ml Inj (Adult) IVP ONE ×2 (04:25→09:15)
[2018-05-26] MEDS ORDERED: Flumazenil 0.1 mg/ml Inj (5ml) IVP STA ×2 (04:59→05:55)
[2018-05-26] MEDS: Sodium Chloride 0.9% 1,000 ML IV SCH ×2 (05:46→14:50)
[2018-05-26] MEDS: (Novolog) Insulin Aspart, Recombinant 100 u/ml 10 ml vial SC SCH ×5 (07:47→22:17)
--- NOTE | 2018-05-26 08:56 | CT ---
Date of service: 05/26/2018 PROCEDURE: CT HEAD WITHOUT CONTRAST. HISTORY: Unresponsive patient COMPARISON: 01/17/2015. TECHNIQUE: Axial computed tomography images were obtained through the head/brain without intravenous contrast. Radiation dose: Total exam DLP = 1130.76 mGy-cm. This CT exam was performed using one or more of the following dose reduction techniques: Automated exposure control, adjustment of the mA and/or kV according to patient size, and/or use of iterative reconstruction technique. FINDINGS: HEMORRHAGE: No intracranial hemorrhage. BRAIN: Choudhary-white matter differentiation is preserved. There are mild chronic microangiopathic changes there is no mass, mass effect or abnormal extra-axial fluid collection. There redemonstration of an old lacunar infarction in the right basal ganglia. The midline sagittal structures are normal. VENTRICLES: There is mild age-related global parenchymal volume loss and proportionate enlargement of the ventricles and cortical sulci. CALVARIUM: There is no calvarial fracture or extracranial soft tissue swelling. PARANASAL SINUSES: Predominantly clear. MASTOID AIR CELLS: Predominantly clear. OTHER FINDINGS: None. IMPRESSION: No acute intracranial abnormality. No significant interval change. A preliminary report was provided by DTT.
[2018-05-26] MEDS ORDERED: Naloxone 0.4 mg/ml Inj (Adult) ONE (09:14)
[2018-05-26] MEDS ORDERED: Enoxaparin 30 mg Syringe SC SCH (10:00)
[2018-05-26] MEDS ORDERED: Cefepime 2 GM in Sodium Chloride 0.9% 50 ML IVPB SCH (10:00)
--- NOTE | 2018-05-26 10:22 | RAD ---
Date of service: 05/26/2018 HISTORY: Sepsis Patient COMPARISON: 02/23/2018. FINDINGS: LUNGS: There is low lung volume on the right. There is confluent airspace disease in the right lower lobe. The left lung is clear. PLEURA: Suspect small right pleural effusion. No left pleural effusion or pneumothorax. CARDIOVASCULAR: The heart is normal in size. There are aortic atherosclerotic calcifications present. OSSEOUS STRUCTURES: Within normal limits for the patient's age. VISUALIZED UPPER ABDOMEN: Normal. OTHER FINDINGS: None. IMPRESSION: Confluent airspace disease in the right lower lobe may represent subsegmental atelectasis however superimposed pneumonia cannot be excluded. Small right pleural effusion. The final report is tagged to the PA review folder.
--- NOTE | 2018-05-26 10:35 | CP.PCM.PN ---
Subjective - Date & Time of Evaluation Date of Evaluation: 05/26/18 Time of Evaluation: 10:33 - Subjective Subjective: Patient admitted to ICU for sepsis Objective - Vital Signs/Intake and Output Vital Signs (last 24 hours): Temp Pulse Resp BP Pulse Ox 98.4 F 92 H 13 118/46 L 96 05/26/18 04:17 05/26/18 08:06 05/26/18 08:06 05/26/18 08:06 05/26/18 08:06 Intake and Output: 05/26/18 05/26/18 06:59 18:59 Intake Total 250 250 Output Total 275 Balance -25 250 - Medications Medications: Current Medications Acetaminophen (Tylenol 325mg Tab) 650 mg PO Q4 PRN PRN Reason: Fever >100.4 F Famotidine (Pepcid) 20 mg PO DAILY [facility] Last Admin: 05/26/18 10:07 Dose: 20 mg Heparin Sodium (Porcine) (Heparin) 5,000 units SC Q12H [facility] Last Admin: 05/26/18 10:06 Dose: 5,000 units Sodium Chloride (Sodium Chloride 0.9%) 1,000 mls @ 125 mls/hr IV .Q8H [facility] Last Admin: 05/26/18 05:46 Dose: 125 mls/hr Cefepime HCl (Maxipime Iv 2 Gm Premix) 2 gm in 100 mls @ 100 mls/hr IVPB DAILY [facility]; Protocol Stop: 05/31/18 10:01 Insulin Aspart (Novolog) 0 unit SC Q6H [facility]; Protocol Last Admin: 05/26/18 07:47 Dose: Not Given Lamotrigine (Lamictal) 100 mg PO BID [facility] Last Admin: 05/26/18 10:07 Dose: 100 mg Lidocaine (Lidocaine 5%) gm TOP ASDIR [facility] Lidocaine HCl (Xylocaine 2%) 1 ea TOP ONCE [facility] Magnesium Hydroxide (Milk Of Magnesia) 30 ml PO ONCE PRN PRN Reason: Constipation Quetiapine Fumarate (Seroquel Xr) 150 mg PO HS [facility] Rosuvastatin Calcium (Crestor) 20 mg PO HS [facility] - Labs Labs: 05/26/18 01:17 05/26/18 01:17 PT 12.6 SECONDS (9.7-12.2) H 05/26/18 01:17 INR 1.2 05/26/18 01:17 APTT 20 SECONDS (21-34) L 05/26/18 01:17 - Head Exam Head Exam: ATRAUMATIC, NORMAL INSPECTION - Eye Exam Pupil Exam: Miosis, PERRL - Respiratory Exam Respiratory Exam: Clear to Ausculation Bilateral, NORMAL BREATHING PATTERN - GI/Abdominal Exam GI & Abdominal Exam: Soft, Normal Bowel Sounds. absent: Tenderness - Extremities Exam Extremities Exam: Full ROM, Normal Inspection - Neurological Exam Neurological Exam: Altered - Skin Skin Exam: Normal Color, Warm Assessment and Plan - Assessment and Plan (Free Text) Assessment: Oversedated: narcan pushed and patient improved, avoid any sedations, opoids or benzos -EDMUNDO: making good urine output, check US abdomen -Sepsis: UA obtained from old gallagher, repeat UA, will d/c gallagher once urine output improves and kidney function improves, check urine eosinophils -continue dvt/pud ppx -lactic normal, not on pressors, not in respiratory distress -PAtient remains hemodynamically stable.
[2018-05-26] MEDS: Cefepime IV 2 gm in Dextrose 2 GM/100 ML BAG IVPB SCH (10:55)
[2018-05-26 11:01] LABS: GRANULAR CAST 4 /lpf (0-1); SQUAMOUS EPITHIAL < 1 /hpf (0-5); URINE BACTERIA RARE (<OCC); URINE BILIRUBIN NEGATIVE (NEGATIVE); URINE BLOOD 2+ (NEGATIVE); URINE CLARITY Clear (Clear); URINE COLOR Straw (YELLOW); URINE GLUCOSE (UA) NORMAL (Normal); URINE HYALINE CAST 0-2 /lpf (0-2); URINE LEUKOCYTE ESTERASE 1+ Leu/uL (Negative); URINE PROTEIN NEGATIVE (NEGATIVE); URINE UROBILINOGEN NORMAL mg/dL (0.2-1.0)
--- NOTE | 2018-05-26 12:23 | US ---
Date of service: 05/26/2018 HISTORY: EDMUNDO COMPARISON: None. TECHNIQUE: Grayscale imaging was performed. FINDINGS: LIVER: Measures 18.2 cm. There is diffuse increased echogenicity of the liver parenchyma. No mass. No intrahepatic bile duct dilatation. GALLBLADDER: There are no gallstones, wall thickening or pericholecystic fluid. There is sludge within the gallbladder. The sonographic Candelaria's sign is negative. COMMON BILE DUCT: Measures 3.0 mm. No stones. No dilatation. PANCREAS: Unremarkable as visualized. No mass. No ductal dilatation. RIGHT KIDNEY: Measures 10.6cm. Normal echogenicity. No calculus, mass, or hydronephrosis. There is a 2.8 x 3.0 x 2.6 cm simple cyst in the lower pole. LEFT KIDNEY: Measures 9.2cm. Normal echogenicity. No calculus, mass, or hydronephrosis. SPLEEN: Normal in size and contour. No mass. AORTA: No aneurysmal dilatation. IVC: Unremarkable. OTHER FINDINGS: None. IMPRESSION: Mild hepatomegaly. Diffuse increased echogenicity in the liver may reflect hepatic steatosis however parenchymal infectious/ inflammatory etiologies cannot be entirely excluded. Clinical and laboratory correlation is advised. 3.0 cm simple cyst in the lower pole of the right kidney.
[2018-05-26] MEDS: MethylPREDNISolone 40 mg Vial IVP SCH ×2 (12:45→23:10)
[2018-05-26] MEDS ORDERED: Lidocaine 5% Oint(35 gm) TOP PRN (13:52)
--- NOTE | 2018-05-26 20:05 | CP.PCM.CON ---
History of Present Illness - History of Present Illness History of Present Illness: INFECTIOUS DISEASE CONSULT; HPI; 67-year-old female with history off diabetes mellitus, bronchial asthma, bronchitis, rheumatoid arthritis, schizophrenia, Alzheimer's dementia, with history of chronic back pain, who is a resident at [facility] who was found unresponsive and hypotensive with blood pressure of 80/60 with pinpoint pupils who responded to Narcan given by EMS and then fell back gaining to stuporous state. She was found to have temperatures at senior living and was admitted to ICU for septic shock, drug overdose and probable urosepsis. Broad-spectrum antibiotics were initiated in the ER including cefepime and vancomycin. Chest x-ray showed right lower lobe pneumonia versus atelectasis with small r ight pleural effusion. CT head showed no acute intracranial pathology. Infectious disease consultation requested by Dr. Tylor Ruth for evaluation off sepsis and UTI. Patient presently denies chest pain or shortness of breath. Denies any headache or any visual problems. Patient denies any abdominal pains, nausea or vomiting. Denies any dysuria or hematuria or any history of kidney stones. Patient presently more responsive, AND ANSWERING YES AND NO QUESTIONS.patient also found to have elevated BUN and creatinine of 46 and 3.1 and creatinine. PMH: Alzheimer's Disease, Anxiety and Depression; Asthma, Bronchitis and COPD; HTN; HLD; RA; Schizophrenia;DM II; PSH: Back Surgery with Laminectomy SH: Light smoker 3 cigarettes daily; No ETOH; No illegal drug use; Reside at the [facility] FH: No Known family hx as per hx Allergies: NKDA Medication: Reviewed. Review of Systems - Constitutional Constitutional: Chills, Fever - EENT Eyes: absent: Change in Vision, Floaters Nose/Mouth/Throat: absent: Mouth Lesions - Cardiovascular Cardiovascular: absent: Chest Pain, Dyspnea, Palpitations - Respiratory Respiratory: Cough (occasional, dry.). absent: Hemoptysis, Pain with Coughing - Gastrointestinal Gastrointestinal: absent: Abdominal Pain, Diarrhea, Nausea, Vomiting - Genitourinary Genitourinary: absent: Dysuria (patient had a chronic Bosch catheter which has been discontinued now.), Freq UTI - Musculoskeletal Musculoskeletal: Back Pain - Neurological Neurological: absent: Headaches - Psychiatric Psychiatric: Depression - Hematologic/Lymphatic Hematologic: As Per HPI. absent: Easy Bleeding, Easy Bruising Past Patient History - Infectious Disease Hx of Infectious Diseases: None - Past Medical History & Family History Past Medical History?: Yes - Past Social History Smoking Status: Light Smoker < 10 Cigarettes Daily Chewing Tobacco Use: No Cigar Use: No Alcohol: None Drugs: Denies, Inhalants Home Situation {Lives}: Group Home - CARDIAC Hx Hypercholesterolemia: Yes Hx Hypertension: Yes - PULMONARY Hx Chronic Obstructive Pulmonary Disease (COPD): Yes - NEUROLOGICAL Hx Alzheimer's Disease: Yes Hx Dementia: Yes - HEENT Hx HEENT Problems: No - ENDOCRINE/METABOLIC Hx Diabetes Mellitus Type 2: Yes - HEMATOLOGICAL/ONCOLOGICAL Hx Blood Disorders: No - INTEGUMENTARY Hx Dermatological Problems: No - MUSCULOSKELETAL/RHEUMATOLOGICAL Hx Rheumatoid Arthritis: Yes - GASTROINTESTINAL Hx Gastrointestinal Disorders: No - GENITOURINARY/GYNECOLOGICAL Hx Genitourinary Disorders: No - PSYCHIATRIC Hx Anxiety: Yes Hx Depression: Yes Hx Schizophrenia: Yes Hx Substance Use: No - SURGICAL HISTORY Hx Surgeries: Yes Hx Musculoskeletal Surgery: Yes (LAMINECTOMY) - ANESTHESIA Hx Anesthesia: Yes Hx Anesthesia Reactions: No Hx Malignant Hyperthermia: No Meds Allergies/Adverse Reactions: Allergies Allergy/AdvReac Type Severity Reaction Status Date / Time No Known Allergies Allergy Verified 05/26/18 00:55 - Medications Medications: Current Medications Acetaminophen (Tylenol 325mg Tab) 650 mg PO Q4 PRN PRN Reason: Fever >100.4 F Last Admin: 05/26/18 13:27 Dose: 650 mg Famotidine (Pepcid) 20 mg PO DAILY [facility] Last Admin: 05/26/18 10:07 Dose: 20 mg Heparin Sodium (Porcine) (Heparin) 5,000 units SC Q12H [facility] Last Admin: 05/26/18 10:06 Dose: 5,000 units Sodium Chloride (Sodium Chloride 0.9%) 1,000 mls @ 125 mls/hr IV .Q8H [facility] Last Admin: 05/26/18 14:50 Dose: 125 mls/hr Cefepime HCl (Maxipime Iv 2 Gm Premix) 2 gm in 100 mls @ 100 mls/hr IVPB DAILY [facility]; Protocol Stop: 05/31/18 10:01 Last Admin: 05/26/18 10:55 Dose: 100 mls/hr Insulin Aspart (Novolog) 0 unit SC ACHS [facility]; Protocol Last Admin: 05/26/18 16:30 Dose: Not Given Lamotrigine (Lamictal) 100 mg PO BID [facility] Last Admin: 05/26/18 18:05 Dose: 100 mg Lidocaine (Lidocaine 5%) 0 gm TOP Q12 PRN PRN Reason: BACK PAIN Lidocaine HCl (Xylocaine 2%) 1 ea TOP ONCE [facility] Magnesium Hydroxide (Milk Of Magnesia) 30 ml PO ONCE PRN PRN Reason: Constipation Methylprednisolone (Solu-Medrol) 40 mg IVP Q12H [facility] Stop: 05/31/18 12:31 Last Admin: 05/26/18 12:45 Dose: 40 mg Quetiapine Fumarate (Seroquel Xr) 150 mg PO HS MONISHA Rosuvastatin Calcium (Crestor) 20 mg PO HS MONISHA Physical Exam - Constitutional Appears: No Acute Distress - Head Exam Head Exam: NORMAL INSPECTION - Eye Exam Eye Exam: EOMI, PERRL - ENT Exam ENT Exam: Mucous Membranes Moist, Normal Oropharynx - Neck Exam Neck exam: Positive for: Normal Inspection. Negative for: Meningismus - Respiratory Exam Respiratory Exam: Decreased Breath Sounds (bases.), NORMAL BREATHING PATTERN - Cardiovascular Exam Cardiovascular Exam: REGULAR RHYTHM, +S1, +S2 - GI/Abdominal Exam GI & Abdominal Exam: Normal Bowel Sounds, Soft. absent: Tenderness - Extremities Exam Extremities exam: Positive for: pedal pulses present. Negative for: calf tenderness, pedal edema - Neurological Exam Neurological exam: Alert, CN II-XII Intact, Oriented x3, Reflexes Normal - Psychiatric Exam Psychiatric exam: Normal Mood - Skin Skin Exam: Normal Color, Warm Results - Vital Signs Recent Vital Signs: Last Vital Signs Temp 98.4 F 05/26/18 04:17 Pulse 94 H 05/26/18 19:07 Resp 20 05/26/18 19:07 BP 133/65 05/26/18 19:07 Pulse Ox 95 05/26/18 12:06 - Labs Result Diagrams: 05/26/18 01:17 05/26/18 01:17 Labs: Laboratory Results - last 24 hr 05/26/18 05/26/18 05/26/18 01:17 01:17 01:17 WBC 10.3 RBC 3.34 L Hgb 9.4 L D Hct 28.9 L MCV 86.5 MCH 28.2 MCHC 32.6 L RDW 15.9 H Plt Count 460 H D MPV 7.1 L Neut % (Auto) 65.4 Lymph % (Auto) 21.3 [place] % (Auto) 11.0 H Eos % (Auto) 1.8 Baso % (Auto) 0.5 Neut # (Auto) 6.7 Lymph # (Auto) 2.2 [place] # (Auto) 1.1 H Eos # (Auto) 0.2 Baso # (Auto) 0.1 PT 12.6 H INR 1.2 APTT 20 L pO2 VBG pH VBG pCO2 VBG HCO3 VBG Total CO2 VBG O2 Sat (Calc) VBG Base Excess VBG Potassium Glucose Lactate Sodium Potassium Chloride Carbon Dioxide Anion Gap BUN Creatinine Est GFR ( Amer) Est GFR (Non-Af Amer) POC Glucose (mg/dL) Random Glucose Lactic Acid Calcium Phosphorus Magnesium Total Bilirubin AST ALT Alkaline Phosphatase Total Creatine Kinase Total Protein Albumin Globulin Albumin/Globulin Ratio Venous Blood Potassium Urine Color Yellow Urine Clarity Turbid Urine pH 5.5 Ur Specific [place] 1.010 Urine Protein Negative Urine Glucose (UA) Negative Urine Ketones Negative Urine Blood Large Urine Nitrate Negative Urine Bilirubin Negative Urine Urobilinogen 0.2 Ur Leukocyte Esterase Large Urine WBC (Auto) 8542 H Urine RBC (Auto) 420 H Urine WBC Clumps (Auto) Many H Ur Squamous Epith Cells Urine Bacteria Many H Hyaline Casts >20 H Granular Casts (Auto) Urine Yeast (Budding) Many H Urine Eosinophils Urine Opiates Screen Urine Methadone Screen Ur Barbiturates Screen Ur Phencyclidine Scrn Ur Amphetamines Screen U Benzodiazepines Scrn U Oth Cocaine Metabols U Cannabinoids Screen 05/26/18 05/26/18 05/26/18 01:17 01:22 02:38 WBC RBC Hgb Hct MCV MCH MCHC RDW Plt Count MPV Neut % (Auto) Lymph % (Auto) [place] % (Auto) Eos % (Auto) Baso % (Auto) Neut # (Auto) Lymph # (Auto) [place] # (Auto) Eos # (Auto) Baso # (Auto) PT INR APTT pO2 20 L VBG pH 7.36 VBG pCO2 49 VBG HCO3 24.2 VBG Total CO2 29.2 H VBG O2 Sat (Calc) 35.0 L VBG Base Excess 1.5 VBG Potassium 4.8 Glucose 110 H Lactate 2.0 Sodium 135 140.0 Potassium 4.3 Chloride 99 106.0 Carbon Dioxide 22 Anion Gap 19 BUN 46 H Creatinine 3.1 H Est GFR ( Amer) 18 Est GFR (Non-Af Amer) 15 POC Glucose (mg/dL) Random Glucose 114 H Lactic Acid Calcium 8.0 L Phosphorus 5.1 H Magnesium 2.9 H Total Bilirubin 0.5 AST 132 H D ALT 48 Alkaline Phosphatase 112 Total Creatine Kinase Total Protein 7.4 Albumin 3.7 Globulin 3.8 Albumin/Globulin Ratio 1.0 Venous Blood Potassium 4.8 Urine Color Urine Clarity Urine pH Ur Specific [place] Urine Protein Urine Glucose (UA) Urine Ketones Urine Blood Urine Nitrate Urine Bilirubin Urine Urobilinogen Ur Leukocyte Esterase Urine WBC (Auto) Urine RBC (Auto) Urine WBC Clumps (Auto) Ur Squamous Epith Cells Urine Bacteria Hyaline Casts Granular Casts (Auto) Urine Yeast (Budding) Urine Eosinophils Urine Opiates Screen Negative Urine Methadone Screen Negative Ur Barbiturates Screen Negative Ur Phencyclidine Scrn Negative Ur Amphetamines Screen Negative U Benzodiazepines Scrn Positive U Oth Cocaine Metabols Negative U Cannabinoids Screen Negative 05/26/18 05/26/18 05/26/18 02:56 05:08 10:41 WBC RBC Hgb Hct MCV MCH MCHC RDW Plt Count MPV Neut % (Auto) Lymph % (Auto) [place] % (Auto) Eos % (Auto) Baso % (Auto) Neut # (Auto) Lymph # (Auto) [place] # (Auto) Eos # (Auto) Baso # (Auto) PT INR APTT pO2 VBG pH VBG pCO2 VBG HCO3 VBG Total CO2 VBG O2 Sat (Calc) VBG Base Excess VBG Potassium Glucose Lactate Sodium Potassium Chloride Carbon Dioxide Anion Gap BUN Creatinine Est GFR ( Amer) Est GFR (Non-Af Amer) POC Glucose (mg/dL) 133 H Random Glucose Lactic Acid 1.0 Calcium Phosphorus Magnesium Total Bilirubin AST ALT Alkaline Phosphatase Total Creatine Kinase Total Protein Albumin Globulin Albumin/Globulin Ratio Venous Blood Potassium Urine Color Urine Clarity Urine pH Ur Specific [place] Urine Protein Urine Glucose (UA) Urine Ketones Urine Blood Urine Nitrate Urine Bilirubin Urine Urobilinogen Ur Leukocyte Esterase Urine WBC (Auto) Urine RBC (Auto) Urine WBC Clumps (Auto) Ur Squamous Epith Cells Urine Bacteria Hyaline Casts Granular Casts (Auto) Urine Yeast (Budding) Urine Eosinophils Positive H Urine Opiates Screen Urine Methadone Screen Ur Barbiturates Screen Ur Phencyclidine Scrn Ur Amphetamines Screen U Benzodiazepines Scrn U Oth Cocaine Metabols U Cannabinoids Screen 05/26/18 05/26/18 05/26/18 10:41 10:41 16:15 WBC RBC Hgb Hct MCV MCH MCHC RDW Plt Count MPV Neut % (Auto) Lymph % (Auto) [place] % (Auto) Eos % (Auto) Baso % (Auto) Neut # (Auto) Lymph # (Auto) [place] # (Auto) Eos # (Auto) Baso # (Auto) PT INR APTT pO2 VBG pH VBG pCO2 VBG HCO3 VBG Total CO2 VBG O2 Sat (Calc) VBG Base Excess VBG Potassium Glucose Lactate Sodium Potassium Chloride Carbon Dioxide Anion Gap BUN Creatinine Est GFR ( Amer) Est GFR (Non-Af Amer) POC Glucose (mg/dL) 142 H Random Glucose Lactic Acid Calcium Phosphorus Magnesium Total Bilirubin AST ALT Alkaline Phosphatase Total Creatine Kinase 2939 H Total Protein Albumin Globulin Albumin/Globulin Ratio Venous Blood Potassium Urine Color Straw Urine Clarity Clear Urine pH 5.0 Ur Specific [place] 1.010 Urine Protein Negative Urine Glucose (UA) Normal Urine Ketones Negative Urine Blood 2+ H Urine Nitrate Negative Urine Bilirubin Negative Urine Urobilinogen Normal Ur Leukocyte Esterase 1+ H Urine WBC (Auto) 7 H Urine RBC (Auto) 29 H Urine WBC Clumps (Auto) Ur Squamous Epith Cells < 1 Urine Bacteria Rare Hyaline Casts 0-2 Granular Casts (Auto) 4 Urine Yeast (Budding) Urine Eosinophils Urine Opiates Screen Urine Methadone Screen Ur Barbiturates Screen Ur Phencyclidine Scrn Ur Amphetamines Screen U Benzodiazepines Scrn U Oth Cocaine Metabols U Cannabinoids Screen - Imaging and Cardiology Chest x-ray Status: Report reviewed by me (see report. RLL PNEUMONIA VS ATELECTASIS. sMALL RIGHT PLEURAL EFFUSION.) Assessment & Plan (1) Septic shock Status: Acute (2) Urinary tract infection Status: Acute (3) COPD with exacerbation Status: Acute (4) Depression Status: Chronic (5) Schizophrenia Status: Acute (6) Diabetes mellitus Status: Acute (7) Acute prerenal azotemia Status: Acute - Assessment and Plan (Free Text) Plan: PANCULTURE CRP. CONTINUE iv CEFEPIME 2 G iv PIGGYBACK ONCE A DAY DAILY 05/25/19. PATIENT GOT ONE DOSE OF VANCOMYCIN 1 G IN THE ER 05/25/18. mONITOR RENAL FUNCTIONS CLOSELY. REPEAT CHEST X-RAY IN A.M.R/O PNEUMONIA. RENAL US RULE OUT HYDRONEPHROSIS/OR NEPHROLITHIASIS. FOLLOW-UP CULTURES TO ADJUST ANTIBIOTICS. WILL FOLLOW ALONG WITH YOU WHILE PATIENT IN HOSPITAL.
--- NOTE | 2018-05-26 21:24 | CP.PCM.HP ---
Past Patient History - Infectious Disease Hx of Infectious Diseases: None - Past Medical History & Family History Past Medical History?: Yes - Past Social History Smoking Status: Light Smoker < 10 Cigarettes Daily Chewing Tobacco Use: No Cigar Use: No Alcohol: None Drugs: Denies, Inhalants Home Situation {Lives}: Senior Care - CARDIAC Hx Hypercholesterolemia: Yes Hx Hypertension: Yes - PULMONARY Hx Chronic Obstructive Pulmonary Disease (COPD): Yes - NEUROLOGICAL Hx Alzheimer's Disease: Yes Hx Dementia: Yes - HEENT Hx HEENT Problems: No - ENDOCRINE/METABOLIC Hx Diabetes Mellitus Type 2: Yes - HEMATOLOGICAL/ONCOLOGICAL Hx Blood Disorders: No - INTEGUMENTARY Hx Dermatological Problems: No - MUSCULOSKELETAL/RHEUMATOLOGICAL Hx Rheumatoid Arthritis: Yes - GASTROINTESTINAL Hx Gastrointestinal Disorders: No - GENITOURINARY/GYNECOLOGICAL Hx Genitourinary Disorders: No - PSYCHIATRIC Hx Anxiety: Yes Hx Depression: Yes Hx Schizophrenia: Yes Hx Substance Use: No - SURGICAL HISTORY Hx Surgeries: Yes Hx Musculoskeletal Surgery: Yes (LAMINECTOMY) - ANESTHESIA Hx Anesthesia: Yes Hx Anesthesia Reactions: No Hx Malignant Hyperthermia: No Meds Allergies/Adverse Reactions: Allergies Allergy/AdvReac Type Severity Reaction Status Date / Time No Known Allergies Allergy Verified 05/26/18 00:55 Results - Vital Signs Recent Vital Signs: Last Vital Signs Temp 98.4 F 05/26/18 04:17 Pulse 94 H 05/26/18 19:07 Resp 20 05/26/18 19:07 BP 133/65 05/26/18 19:07 Pulse Ox 95 05/26/18 12:06 - Labs Result Diagrams: 05/26/18 01:17 05/26/18 01:17 Labs: Laboratory Results - last 24 hr 05/26/18 05/26/18 05/26/18 01:17 01:17 01:17 WBC 10.3 RBC 3.34 L Hgb 9.4 L D Hct 28.9 L MCV 86.5 MCH 28.2 MCHC 32.6 L RDW 15.9 H Plt Count 460 H D MPV 7.1 L Neut % (Auto) 65.4 Lymph % (Auto) 21.3 [place] % (Auto) 11.0 H Eos % (Auto) 1.8 Baso % (Auto) 0.5 Neut # (Auto) 6.7 Lymph # (Auto) 2.2 [place] # (Auto) 1.1 H Eos # (Auto) 0.2 Baso # (Auto) 0.1 PT 12.6 H INR 1.2 APTT 20 L pO2 VBG pH VBG pCO2 VBG HCO3 VBG Total CO2 VBG O2 Sat (Calc) VBG Base Excess VBG Potassium Glucose Lactate Sodium Potassium Chloride Carbon Dioxide Anion Gap BUN Creatinine Est GFR ( Amer) Est GFR (Non-Af Amer) POC Glucose (mg/dL) Random Glucose Lactic Acid Calcium Phosphorus Magnesium Total Bilirubin AST ALT Alkaline Phosphatase Total Creatine Kinase Total Protein Albumin Globulin Albumin/Globulin Ratio Venous Blood Potassium Urine Color Yellow Urine Clarity Turbid Urine pH 5.5 Ur Specific [place] 1.010 Urine Protein Negative Urine Glucose (UA) Negative Urine Ketones Negative Urine Blood Large Urine Nitrate Negative Urine Bilirubin Negative Urine Urobilinogen 0.2 Ur Leukocyte Esterase Large Urine WBC (Auto) 8542 H Urine RBC (Auto) 420 H Urine WBC Clumps (Auto) Many H Ur Squamous Epith Cells Urine Bacteria Many H Hyaline Casts >20 H Granular Casts (Auto) Urine Yeast (Budding) Many H Urine Eosinophils Urine Opiates Screen Urine Methadone Screen Ur Barbiturates Screen Ur Phencyclidine Scrn Ur Amphetamines Screen U Benzodiazepines Scrn U Oth Cocaine Metabols U Cannabinoids Screen 05/26/18 05/26/18 05/26/18 01:17 01:22 02:38 WBC RBC Hgb Hct MCV MCH MCHC RDW Plt Count MPV Neut % (Auto) Lymph % (Auto) [place] % (Auto) Eos % (Auto) Baso % (Auto) Neut # (Auto) Lymph # (Auto) [place] # (Auto) Eos # (Auto) Baso # (Auto) PT INR APTT pO2 20 L VBG pH 7.36 VBG pCO2 49 VBG HCO3 24.2 VBG Total CO2 29.2 H VBG O2 Sat (Calc) 35.0 L VBG Base Excess 1.5 VBG Potassium 4.8 Glucose 110 H Lactate 2.0 Sodium 135 140.0 Potassium 4.3 Chloride 99 106.0 Carbon Dioxide 22 Anion Gap 19 BUN 46 H Creatinine 3.1 H Est GFR ( Amer) 18 Est GFR (Non-Af Amer) 15 POC Glucose (mg/dL) Random Glucose 114 H Lactic Acid Calcium 8.0 L Phosphorus 5.1 H Magnesium 2.9 H Total Bilirubin 0.5 AST 132 H D ALT 48 Alkaline Phosphatase 112 Total Creatine Kinase Total Protein 7.4 Albumin 3.7 Globulin 3.8 Albumin/Globulin Ratio 1.0 Venous Blood Potassium 4.8 Urine Color Urine Clarity Urine pH Ur Specific [place] Urine Protein Urine Glucose (UA) Urine Ketones Urine Blood Urine Nitrate Urine Bilirubin Urine Urobilinogen Ur Leukocyte Esterase Urine WBC (Auto) Urine RBC (Auto) Urine WBC Clumps (Auto) Ur Squamous Epith Cells Urine Bacteria Hyaline Casts Granular Casts (Auto) Urine Yeast (Budding) Urine Eosinophils Urine Opiates Screen Negative Urine Methadone Screen Negative Ur Barbiturates Screen Negative Ur Phencyclidine Scrn Negative Ur Amphetamines Screen Negative U Benzodiazepines Scrn Positive U Oth Cocaine Metabols Negative U Cannabinoids Screen Negative 05/26/18 05/26/18 05/26/18 02:56 05:08 10:41 WBC RBC Hgb Hct MCV MCH MCHC RDW Plt Count MPV Neut % (Auto) Lymph % (Auto) [place] % (Auto) Eos % (Auto) Baso % (Auto) Neut # (Auto) Lymph # (Auto) [place] # (Auto) Eos # (Auto) Baso # (Auto) PT INR APTT pO2 VBG pH VBG pCO2 VBG HCO3 VBG Total CO2 VBG O2 Sat (Calc) VBG Base Excess VBG Potassium Glucose Lactate Sodium Potassium Chloride Carbon Dioxide Anion Gap BUN Creatinine Est GFR ( Amer) Est GFR (Non-Af Amer) POC Glucose (mg/dL) 133 H Random Glucose Lactic Acid 1.0 Calcium Phosphorus Magnesium Total Bilirubin AST ALT Alkaline Phosphatase Total Creatine Kinase Total Protein Albumin Globulin Albumin/Globulin Ratio Venous Blood Potassium Urine Color Urine Clarity Urine pH Ur Specific [place] Urine Protein Urine Glucose (UA) Urine Ketones Urine Blood Urine Nitrate Urine Bilirubin Urine Urobilinogen Ur Leukocyte Esterase Urine WBC (Auto) Urine RBC (Auto) Urine WBC Clumps (Auto) Ur Squamous Epith Cells Urine Bacteria Hyaline Casts Granular Casts (Auto) Urine Yeast (Budding) Urine Eosinophils Positive H Urine Opiates Screen Urine Methadone Screen Ur Barbiturates Screen Ur Phencyclidine Scrn Ur Amphetamines Screen U Benzodiazepines Scrn U Oth Cocaine Metabols U Cannabinoids Screen 05/26/18 05/26/18 05/26/18 10:41 10:41 16:15 WBC RBC Hgb Hct MCV MCH MCHC RDW Plt Count MPV Neut % (Auto) Lymph % (Auto) [place] % (Auto) Eos % (Auto) Baso % (Auto) Neut # (Auto) Lymph # (Auto) [place] # (Auto) Eos # (Auto) Baso # (Auto) PT INR APTT pO2 VBG pH VBG pCO2 VBG HCO3 VBG Total CO2 VBG O2 Sat (Calc) VBG Base Excess VBG Potassium Glucose Lactate Sodium Potassium Chloride Carbon Dioxide Anion Gap BUN Creatinine Est GFR ( Amer) Est GFR (Non-Af Amer) POC Glucose (mg/dL) 142 H Random Glucose Lactic Acid Calcium Phosphorus Magnesium Total Bilirubin AST ALT Alkaline Phosphatase Total Creatine Kinase 2939 H Total Protein Albumin Globulin Albumin/Globulin Ratio Venous Blood Potassium Urine Color Straw Urine Clarity Clear Urine pH 5.0 Ur Specific [place] 1.010 Urine Protein Negative Urine Glucose (UA) Normal Urine Ketones Negative Urine Blood 2+ H Urine Nitrate Negative Urine Bilirubin Negative Urine Urobilinogen Normal Ur Leukocyte Esterase 1+ H Urine WBC (Auto) 7 H Urine RBC (Auto) 29 H Urine WBC Clumps (Auto) Ur Squamous Epith Cells < 1 Urine Bacteria Rare Hyaline Casts 0-2 Granular Casts (Auto) 4 Urine Yeast (Budding) Urine Eosinophils Urine Opiates Screen Urine Methadone Screen Ur Barbiturates Screen Ur Phencyclidine Scrn Ur Amphetamines Screen U Benzodiazepines Scrn U Oth Cocaine Metabols U Cannabinoids Screen 05/26/18 21:09 WBC RBC Hgb Hct MCV MCH MCHC RDW Plt Count MPV Neut % (Auto) Lymph % (Auto) [place] % (Auto) Eos % (Auto) Baso % (Auto) Neut # (Auto) Lymph # (Auto) [place] # (Auto) Eos # (Auto) Baso # (Auto) PT INR APTT pO2 VBG pH VBG pCO2 VBG HCO3 VBG Total CO2 VBG O2 Sat (Calc) VBG Base Excess VBG Potassium Glucose Lactate Sodium Potassium Chloride Carbon Dioxide Anion Gap BUN Creatinine Est GFR ( Amer) Est GFR (Non-Af Amer) POC Glucose (mg/dL) 220 H Random Glucose Lactic Acid Calcium Phosphorus Magnesium Total Bilirubin AST ALT Alkaline Phosphatase Total Creatine Kinase Total Protein Albumin Globulin Albumin/Globulin Ratio Venous Blood Potassium Urine Color Urine Clarity Urine pH Ur Specific [place] Urine Protein Urine Glucose (UA) Urine Ketones Urine Blood Urine Nitrate Urine Bilirubin Urine Urobilinogen Ur Leukocyte Esterase Urine WBC (Auto) Urine RBC (Auto) Urine WBC Clumps (Auto) Ur Squamous Epith Cells Urine Bacteria Hyaline Casts Granular Casts (Auto) Urine Yeast (Budding) Urine Eosinophils Urine Opiates Screen Urine Methadone Screen Ur Barbiturates Screen Ur Phencyclidine Scrn Ur Amphetamines Screen U Benzodiazepines Scrn U Oth Cocaine Metabols U Cannabinoids Screen
[2018-05-26] MEDS: QUEtiapine 150 mg XR Tab PO SCH (22:45)
[2018-05-27] MEDS: Sodium Chloride 0.9% 1,000 ML IV SCH ×4 (01:00→11:54)
[2018-05-27 06:47] LABS: BASO % 0.3 % (0.0-2.0); EOS % 0.4 % (0.0-4.0); HEMOGLOBIN 8.4 g/dL (11.0-16.0); LYMPH # 0.9 K/uL (1.0-4.3); LYMPH % 8.7 % (20.0-40.0); MEAN CELL VOLUME 85.4 fL (81.0-99.0); MEAN CORPUSCULAR HEMOGLOBIN 28.7 pg (27.0-31.0); MEAN CORPUSCULAR HGB CONC 33.6 g/dL (33.0-37.0); MONO # 0.4 K/uL (0.0-0.8); MONO % 3.6 % (0.0-10.0); NEUT # 8.7 K/uL (1.8-7.0); PLATELET COUNT 590 K/uL (130-400); RBC 2.91 Mil/uL (3.80-5.20); RED CELL DISTRIBUTION WIDTH 15.7 % (11.5-14.5)
[2018-05-27 06:57] LABS: ALBUMIN 3.4 g/dL (3.5-5.0); ALT/SGPT 37 U/L (9-52); AST/SGOT 78 U/L (14-36); BILIRUBIN,DIRECT 0.5 mg/dL (0.0-0.4); BLOOD UREA NITROGEN 24 mg/dL (7-17); CALCIUM 7.8 mg/dl (8.6-10.4); GFR NON-AFRICAN AMERICAN > 60
[2018-05-27] MEDS: (Novolog) Insulin Aspart, Recombinant 100 u/ml 10 ml vial SC SCH ×4 (07:30→21:43)
[2018-05-27 08:50] LABS: ANISOCYTOSIS SLIGHT; EOSINOPHIL 1 % (0-4); LYMPHOCYTE 7 % (20-40); MONOCYTE 3 % (0-10); NEUTROPHIL 89 % (50-75); PLATELET ESTIMATE INCREASED (NORMAL); TOTAL CELLS COUNTED 100
[2018-05-27 08:51] LABS: HYPOCHROMIC SLIGHT; POLYCHROMIC SLIGHT; TOXIC GRANULATION PRESENT
[2018-05-27] MEDS: Cefepime IV 2 gm in Dextrose 2 GM/100 ML BAG IVPB SCH (10:14)
--- NOTE | 2018-05-27 10:57 | RAD ---
Date of service: 05/27/2018 HISTORY: RLL PNEUMONIA VS ATELECTASIS COMPARISON: 05/26/2018 FINDINGS: LUNGS: The lungs are well inflated. There is moderate pulmonary venous congestion. There is interval development of diffuse haziness in the right lung and multifocal discoid atelectasis in the right mid lung. There is mild pulmonary venous congestion. PLEURA: There is a small right pleural effusion. No pneumothorax. No left pleural effusion. CARDIOVASCULAR: The heart is normal in size. There are aortic atherosclerotic calcifications present. OSSEOUS STRUCTURES: Within normal limits for the patient's age. VISUALIZED UPPER ABDOMEN: Normal. OTHER FINDINGS: None. IMPRESSION: Interval development of right pleural effusion. Underlying atelectasis/pneumonia cannot be excluded.
[2018-05-27] MEDS: MethylPREDNISolone 40 mg Vial IVP SCH ×2 (11:59→23:30)
[2018-05-27] MEDS: Albuterol-Ipratrop 3 mg / 0.5 (3 ml) UD INH SCH (19:37)
[2018-05-27] MEDS: QUEtiapine 150 mg XR Tab PO SCH (22:32)
--- NOTE | 2018-05-27 23:55 | CP.PCM.PN ---
Subjective - Date & Time of Evaluation Date of Evaluation: 05/27/18 Time of Evaluation: 23:55 - Subjective Subjective: AFEBRILE, NAEO, COMFORTABLE. ON IV ABX. LABS REVIEWED; MRSA +VE URINE CULTURE +VE GNR/ GNR -NO2 CXR 05/27/18 RT. PLEURAL EFFUSION/ ?ATELECTASIS VS PNEUMONIA. Objective - Vital Signs/Intake and Output Vital Signs (last 24 hours): Temp Pulse Resp BP Pulse Ox 98.2 F 84 16 169/81 H 90 L 05/27/18 16:00 05/27/18 23:07 05/27/18 23:07 05/27/18 23:07 05/27/18 23:07 Intake and Output: 05/27/18 05/28/18 18:59 06:59 Intake Total 1625 Output Total 1690 150 Balance -65 -150 - Medications Medications: Current Medications Acetaminophen (Tylenol 325mg Tab) 650 mg PO Q4 PRN PRN Reason: Fever >100.4 F Last Admin: 05/27/18 22:32 Dose: 650 mg Albuterol/Ipratropium (Duoneb 3 Mg/0.5 Mg (3 Ml) Ud) 3 ml INH RQ6 [facility] Last Admin: 05/27/18 19:37 Dose: 3 ml Famotidine (Pepcid) 20 mg PO DAILY [facility] Last Admin: 05/27/18 10:14 Dose: 20 mg Heparin Sodium (Porcine) (Heparin) 5,000 units SC Q12H [facility] Last Admin: 05/27/18 22:32 Dose: 5,000 units Cefepime HCl (Maxipime Iv 2 Gm Premix) 2 gm in 100 mls @ 100 mls/hr IVPB DAILY [facility]; Protocol Stop: 05/31/18 10:01 Last Admin: 05/27/18 10:14 Dose: 100 mls/hr Insulin Aspart (Novolog) 0 unit SC ACHS [facility]; Protocol Last Admin: 05/27/18 21:43 Dose: Not Given Lamotrigine (Lamictal) 100 mg PO BID [facility] Last Admin: 05/27/18 17:53 Dose: 100 mg Lidocaine (Lidocaine 5%) 0 gm TOP Q12 PRN PRN Reason: BACK PAIN Methylprednisolone (Solu-Medrol) 40 mg IVP Q12H [facility] Stop: 05/31/18 12:31 Last Admin: 05/27/18 11:59 Dose: 40 mg Quetiapine Fumarate (Seroquel Xr) 150 mg PO HS [facility] Last Admin: 05/27/18 22:32 Dose: 150 mg Rosuvastatin Calcium (Crestor) 20 mg PO HS [facility] Last Admin: 05/27/18 22:33 Dose: 20 mg - Labs Labs: 05/27/18 06:41 05/27/18 06:41 PT 12.6 SECONDS (9.7-12.2) H 05/26/18 01:17 INR 1.2 05/26/18 01:17 APTT 20 SECONDS (21-34) L 05/26/18 01:17 - Constitutional Appears: No Acute Distress - Head Exam Head Exam: NORMAL INSPECTION - Eye Exam Eye Exam: EOMI, PERRL - ENT Exam ENT Exam: Normal Oropharynx - Neck Exam Neck Exam: Normal Inspection - Respiratory Exam Respiratory Exam: Decreased Breath Sounds (RT . BASE), NORMAL BREATHING PATTERN - Cardiovascular Exam Cardiovascular Exam: REGULAR RHYTHM, +S1, +S2 - GI/Abdominal Exam GI & Abdominal Exam: Soft, Normal Bowel Sounds. absent: Tenderness - Extremities Exam Extremities Exam: Normal Capillary Refill. absent: Calf Tenderness, Pedal Edema - Neurological Exam Neurological Exam: Awake, CN II-XII Intact, Reflexes Normal - Psychiatric Exam Psychiatric exam: Normal Mood - Skin Skin Exam: Normal Color, Warm Assessment and Plan (1) Septic shock Status: Acute (2) Urinary tract infection Status: Acute (3) Pneumonia Status: Acute (4) COPD with exacerbation Status: Acute (5) Depression Status: Chronic (6) Schizophrenia Status: Acute (7) Diabetes mellitus Status: Acute (8) Acute prerenal azotemia Status: Acute - Assessment and Plan (Free Text) Plan: CONTINUE iv CEFEPIME 2 G iv PIGGYBACK ONCE A DAY DAILY 05/25/19. ADD IV ZITHROMAX 500MG IVPB [id number] 05/28/18 PATIENT GOT ONE DOSE OF VANCOMYCIN 1 G IN THE ER 05/25/18. MUPIRICON 2% NARISLOCALLY BID F/U RENAL FUNCTION F/U RENAL US FOLLOW-UP CULTURES TO ADJUST ANTIBIOTICS. CONTACT PRECAUTIONS.
[2018-05-28] MEDS: Albuterol-Ipratrop 3 mg / 0.5 (3 ml) UD INH SCH ×4 (01:11→19:26)
--- NOTE | 2018-05-28 01:33 | PN ---
DATE: 05/27/2018 SUBJECTIVE: The patient is afebrile. Her blood pressure is up. No fever. No chills. She is on antibiotics, and urine cultures are growing two different gram negative rods; identity and sensitivity is pending, and she feels better. PHYSICAL EXAMINATION: VITAL SIGNS: Blood pressure 168/78, pulse 88, respiratory rate 19, temperature 99. LUNGS: Clear. CARDIOVASCULAR SYSTEM: S1 and S2 regular. ABDOMEN: Soft. Nontender. Bowel sounds are positive. ASSESSMENT: 1. Urinary tract infection, post hospitalization. Continue cefepime. She is afebrile. 2. Hypertension. 3. Chronic obstructive pulmonary disease. 4. Anxiety and depression. PLAN: Continue antibiotics. Postop care. Monitor patient. Tylor Gregory MD
--- NOTE | 2018-05-28 04:43 | HP ---
CHIEF COMPLAINT: Fever and change of mental status. HISTORY OF PRESENT ILLNESS: This is a 67-year-old female, well known to me with history of major depressive psychosis, anxiety, depression, hypertension, steroid-induced diabetes, on and off on medication, COPD who came in. She is currently in a subacute rehab facility in [place] where she is being treated for post lumbar disk surgery for physiotherapy, pain medications, and ambulatory issues. Patient was in the skilled nursing and in the skilled nursing, she was found to be unresponsive with pinpoint pupil, increasingly weak, 2 mm bilaterally. She was given Narcan intravenously and she woke up. Patient was also found to be hypotensive by EMS with a blood pressure of 50/50, 500 mL of normal saline bolus was given on her way to the hospital, and patient in the hospital, came in, she was still weak, lethargic, febrile, looks like septic, pale, tired, fatigue. When I examined the patient, she was awake and alert. She was in a better mood. She was very talkative; and she had lower abdominal pain, dysuria, frequency. She also has back pain. There is nausea, no vomiting. She has fever, chills. There is dysuria and frequency. She denied any polyuria, polydipsia, polyphagia. She denied any hematuria, pyuria. PAST MEDICAL HISTORY: Lumbar disk disease, status post surgery, steroid-induced diabetes, hypertension, hyperlipidemia, COPD, major depressive psychosis. SOCIAL HISTORY: Current smoker. Ex-ETOH user. FAMILY HISTORY: Positive for diabetes in the mother. CURRENT MEDICATIONS: Patient is on lamotrigine, Seroquel, lidocaine. PHYSICAL EXAMINATION: GENERAL: An elderly female, in no distress. She feels better. She is in a better mood. VITAL SIGNS: Blood pressure 130/71, pulse 96, respiratory rate 21, temperature 100.4. SKIN: Dry, senile turgor. No bruises. No purpura. No petechiae. HEENT: Atraumatic and normocephalic. Positive pallor. Negative jaundice. Extraocular movements are intact. NECK: Supple. Flat neck vein. No JVD. No lymph nodes. No thyromegaly. CHEST: Chest wall bilaterally symmetrical expansion. No tenderness. LUNGS: Bilaterally clear. No rales. No rhonchi. CARDIOVASCULAR SYSTEM: S1 and S2 regular. No heave noted. ABDOMEN: Soft. Nontender. Bowel sounds are positive. RECTAL: No masses. No bleed. EXTREMITIES: No clubbing, cyanosis, or edema. CENTRAL NERVOUS SYSTEM: Awake, alert, and oriented x3. Cranial nerves II through XII are normal. Power 5/5 x4. Plantars are downgoing. ASSESSMENT: 1. Urinary tract infection, rule out sepsis. 2. Opiate overdose. 3. Hypertension. 4. Chronic obstructive pulmonary disease. 5. Osteoarthritis. PLAN: Admit. Detailed orders written. Seen and examined. Tylor Gregory MD
[2018-05-28] MEDS: (Novolog) Insulin Aspart, Recombinant 100 u/ml 10 ml vial SC SCH ×4 (09:24→22:52)
[2018-05-28] MEDS: Azithromycin 500 MG in Sodium Chloride 0.9% 250 ML IVPB SCH (09:39)
[2018-05-28] MEDS: Cefepime IV 2 gm in Dextrose 2 GM/100 ML BAG IVPB SCH (11:35)
[2018-05-28] MEDS: MethylPREDNISolone 40 mg Vial IVP SCH (11:35)
--- NOTE | 2018-05-28 12:53 | CP.PCM.PN ---
Subjective - Date & Time of Evaluation Date of Evaluation: 05/28/18 Time of Evaluation: 12:53 - Subjective Subjective: AFEBRILE, NAEO, COMFORTABLE. ON IV ABX. LABS REVIEWED; MRSA +VE URINE CULTURE +VE +VE E. COLI / PSEUDOMONAS AERUGINOSA R - CEFEPIME. blood cultures 2:2 sets -ve x 48hrs. CXR 05/27/18 RT. PLEURAL EFFUSION/ ?ATELECTASIS VS PNEUMONIA. Objective - Vital Signs/Intake and Output Vital Signs (last 24 hours): Temp Pulse Resp BP Pulse Ox 98.4 F 97 H 19 156/73 H 92 L 05/28/18 08:00 05/28/18 12:07 05/28/18 12:07 05/28/18 12:07 05/27/18 23:16 Intake and Output: 05/28/18 05/28/18 06:59 18:59 Intake Total 120 370 Output Total 1800 550 Balance -1680 -180 - Medications Medications: Current Medications Acetaminophen (Tylenol 325mg Tab) 650 mg PO Q4 PRN PRN Reason: Fever >100.4 F Last Admin: 05/27/18 22:32 Dose: 650 mg Albuterol/Ipratropium (Duoneb 3 Mg/0.5 Mg (3 Ml) Ud) 3 ml INH RQ6 [facility] Last Admin: 05/28/18 07:45 Dose: 3 ml Famotidine (Pepcid) 20 mg PO DAILY [facility] Last Admin: 05/28/18 09:40 Dose: 20 mg Heparin Sodium (Porcine) (Heparin) 5,000 units SC Q12H [facility] Last Admin: 05/28/18 09:40 Dose: 5,000 units Azithromycin 500 mg/ Sodium (Chloride) 250 mls @ 250 mls/hr IVPB Q24H [facility]; Protocol Last Admin: 05/28/18 09:39 Dose: 250 mls/hr Meropenem 1 gm/ Sodium (Chloride) 100 mls @ 100 mls/hr IVPB Q12H [facility]; Protocol Insulin Aspart (Novolog) 0 unit SC ACHS [facility]; Protocol Last Admin: 05/28/18 12:10 Dose: Not Given Lamotrigine (Lamictal) 100 mg PO BID [facility] Last Admin: 05/28/18 09:40 Dose: 100 mg Lidocaine (Lidocaine 5%) 0 gm TOP Q12 PRN PRN Reason: BACK PAIN Methylprednisolone (Solu-Medrol) 40 mg IVP Q12H [facility] Stop: 05/31/18 12:31 Last Admin: 05/28/18 11:35 Dose: 40 mg Mupirocin (Bactroban Ointment) 0.5 gm TOP BID [facility] Quetiapine Fumarate (Seroquel Xr) 150 mg PO HS [facility] Last Admin: 05/27/18 22:32 Dose: 150 mg Rosuvastatin Calcium (Crestor) 20 mg PO HS [facility] Last Admin: 05/27/18 22:33 Dose: 20 mg - Labs Labs: 05/27/18 06:41 05/27/18 06:41 PT 12.6 SECONDS (9.7-12.2) H 05/26/18 01:17 INR 1.2 05/26/18 01:17 APTT 20 SECONDS (21-34) L 05/26/18 01:17 - Constitutional Appears: No Acute Distress - Head Exam Head Exam: NORMAL INSPECTION - Eye Exam Eye Exam: EOMI, PERRL - ENT Exam ENT Exam: Mucous Membranes Moist, Normal Oropharynx - Neck Exam Neck Exam: Normal Inspection - Respiratory Exam Respiratory Exam: Rhonchi (FEW RHONCHI RIGHT SIDE.) - Cardiovascular Exam Cardiovascular Exam: REGULAR RHYTHM, +S1, +S2 - GI/Abdominal Exam GI & Abdominal Exam: Soft, Normal Bowel Sounds. absent: Tenderness - Extremities Exam Extremities Exam: Normal Capillary Refill. absent: Calf Tenderness, Pedal Edema - Neurological Exam Neurological Exam: Awake, CN II-XII Intact, Oriented x3, Reflexes Normal - Psychiatric Exam Psychiatric exam: Normal Mood - Skin Skin Exam: Normal Color, Warm Assessment and Plan (1) Septic shock Status: Acute (2) Urinary tract infection Status: Acute (3) Pneumonia Status: Acute (4) COPD with exacerbation Status: Acute (5) Depression Status: Chronic (6) Schizophrenia Status: Acute (7) Diabetes mellitus Status: Acute (8) Acute prerenal azotemia Status: Acute - Assessment and Plan (Free Text) Plan: DC iv CEFEPIME 2 G iv PIGGYBACK ONCE A DAY DAILY 05/25/19. * START iv mERREM 1 G EVERY 12 HOURLY 05/28/18 CONTINUE IV ZITHROMAX 500MG IVPB [id number] 05/28/18 PATIENT GOT ONE DOSE OF VANCOMYCIN 1 G IN THE ER 05/25/18. MUPIRICON 2% NARISLOCALLY BID CONTACT PRECAUTIONS. +VE MRSA- colonization /+VE PSEUDOMONAS IN URINE
--- NOTE | 2018-05-28 13:29 | CARD ---
APPROVED REPORT Date of service: 05/26/2018 EKG Measurement Heart [id number] <Conclusion> Normal sinus rhythm Nonspecific T wave abnormality Prolonged QT Abnormal ECG
[2018-05-28] MEDS: Meropenem 1 GM in Sodium Chloride 0.9% 100 ML IVPB SCH (14:32)
[2018-05-28] MEDS: QUEtiapine 150 mg XR Tab PO SCH (21:46)
--- NOTE | 2018-05-28 22:57 | CP.PCM.PN ---
Subjective - Subjective Subjective: dictated Objective - Vital Signs/Intake and Output Vital Signs (last 24 hours): Temp Pulse Resp BP Pulse Ox 98.4 F 92 H 22 161/78 H 95 05/28/18 17:08 05/28/18 17:14 05/28/18 17:07 05/28/18 17:07 05/28/18 17:08 Intake and Output: 05/28/18 05/29/18 18:59 06:59 Intake Total 370 Output Total 550 Balance -180 - Medications Medications: Current Medications Acetaminophen (Tylenol 325mg Tab) 650 mg PO Q4 PRN PRN Reason: Fever >100.4 F Last Admin: 05/28/18 21:46 Dose: 650 mg Albuterol/Ipratropium (Duoneb 3 Mg/0.5 Mg (3 Ml) Ud) 3 ml INH RQ6 [facility] Last Admin: 05/28/18 19:26 Dose: 3 ml Famotidine (Pepcid) 20 mg PO DAILY [facility] Last Admin: 05/28/18 09:40 Dose: 20 mg Heparin Sodium (Porcine) (Heparin) 5,000 units SC Q12H [facility] Last Admin: 05/28/18 21:46 Dose: 5,000 units Azithromycin 500 mg/ Sodium (Chloride) 250 mls @ 250 mls/hr IVPB Q24H [facility]; Protocol Last Admin: 05/28/18 09:39 Dose: 250 mls/hr Meropenem 1 gm/ Sodium (Chloride) 100 mls @ 100 mls/hr IVPB Q12H [facility]; Protocol Last Admin: 05/28/18 14:32 Dose: 100 mls/hr Insulin Aspart (Novolog) 0 unit SC ACHS [facility]; Protocol Last Admin: 05/28/18 17:07 Dose: Not Given Lamotrigine (Lamictal) 100 mg PO BID [facility] Last Admin: 05/28/18 17:18 Dose: 100 mg Lidocaine (Lidocaine 5%) 0 gm TOP Q12 PRN PRN Reason: BACK PAIN Losartan Potassium (Cozaar) 50 mg PO DAILY [facility] Last Admin: 05/28/18 17:18 Dose: 50 mg Methylprednisolone (Solu-Medrol) 40 mg IVP Q12H [facility] Stop: 05/31/18 12:31 Last Admin: 05/28/18 11:35 Dose: 40 mg Mupirocin (Bactroban Ointment) 0.5 gm TOP BID [facility] Last Admin: 05/28/18 21:44 Dose: 0.5 gm Quetiapine Fumarate (Seroquel Xr) 150 mg PO HS [facility] Last Admin: 05/28/18 21:46 Dose: 150 mg Rosuvastatin Calcium (Crestor) 20 mg PO HS [facility] Last Admin: 05/28/18 21:45 Dose: 20 mg - Labs Labs: 05/27/18 06:41 05/27/18 06:41 PT 12.6 SECONDS (9.7-12.2) H 05/26/18 01:17 INR 1.2 05/26/18 01:17 APTT 20 SECONDS (21-34) L 05/26/18 01:17
[2018-05-29] MEDS: MethylPREDNISolone 40 mg Vial IVP SCH ×2 (01:30→12:14)
[2018-05-29] MEDS: Meropenem 1 GM in Sodium Chloride 0.9% 100 ML IVPB SCH ×2 (02:00→12:14)
[2018-05-29] MEDS: Albuterol-Ipratrop 3 mg / 0.5 (3 ml) UD INH SCH ×4 (02:30→20:39)
[2018-05-29] MEDS: (Novolog) Insulin Aspart, Recombinant 100 u/ml 10 ml vial SC SCH ×4 (08:29→22:28)
[2018-05-29] MEDS: Azithromycin 500 MG in Sodium Chloride 0.9% 250 ML IVPB SCH (11:06)
[2018-05-29] MEDS: Mupirocin 2% Ointment (NASAL) NAS SCH ×2 (16:20→19:46)
[2018-05-29] MEDS: QUEtiapine 150 mg XR Tab PO SCH (21:07)
--- NOTE | 2018-05-29 23:25 | CP.PCM.PN ---
Subjective - Subjective Subjective: dictated Objective - Vital Signs/Intake and Output Vital Signs (last 24 hours): Temp Pulse Resp BP Pulse Ox 97.8 F 99 H 20 164/84 H 97 05/29/18 15:00 05/29/18 15:00 05/29/18 15:00 05/29/18 15:00 05/29/18 15:00 Intake and Output: 05/29/18 05/30/18 18:59 06:59 Intake Total 600 Output Total 775 Balance -175 - Medications Medications: Current Medications Acetaminophen (Tylenol 325mg Tab) 650 mg PO Q4 PRN PRN Reason: Fever >100.4 F Last Admin: 05/29/18 21:06 Dose: 650 mg Albuterol/Ipratropium (Duoneb 3 Mg/0.5 Mg (3 Ml) Ud) 3 ml INH RQ6 [facility] Last Admin: 05/29/18 20:39 Dose: 3 ml Famotidine (Pepcid) 20 mg PO DAILY [facility] Last Admin: 05/29/18 10:54 Dose: 20 mg Azithromycin 500 mg/ Sodium (Chloride) 250 mls @ 250 mls/hr IVPB Q24H [facility]; Protocol Last Admin: 05/29/18 11:06 Dose: 250 mls/hr Meropenem 1 gm/ Sodium (Chloride) 100 mls @ 100 mls/hr IVPB Q12H [facility]; Protocol Last Admin: 05/29/18 12:14 Dose: 100 mls/hr Insulin Aspart (Novolog) 0 unit SC ACHS [facility]; Protocol Last Admin: 05/29/18 22:28 Dose: Not Given Lamotrigine (Lamictal) 100 mg PO BID [facility] Last Admin: 05/29/18 19:39 Dose: 100 mg Lidocaine (Lidocaine 5%) 0 gm TOP Q12 PRN PRN Reason: BACK PAIN Losartan Potassium (Cozaar) 50 mg PO DAILY [facility] Last Admin: 05/29/18 10:54 Dose: 50 mg Methylprednisolone (Solu-Medrol) 40 mg IVP Q12H [facility] Stop: 05/31/18 12:31 Last Admin: 05/29/18 12:14 Dose: 40 mg Mupirocin (Bactroban 2% Nasal) 0.25 gm ALYSSA BID [facility] Last Admin: 05/29/18 19:46 Dose: Not Given Quetiapine Fumarate (Seroquel Xr) 150 mg PO HS [facility] Last Admin: 05/29/18 21:07 Dose: 150 mg Rosuvastatin Calcium (Crestor) 20 mg PO HS [facility] Last Admin: 05/29/18 21:07 Dose: 20 mg - Labs Labs: 05/27/18 06:41 05/27/18 06:41 PT 12.6 SECONDS (9.7-12.2) H 05/26/18 01:17 INR 1.2 05/26/18 01:17 APTT 20 SECONDS (21-34) L 05/26/18 01:17
--- NOTE | 2018-05-30 00:16 | PN ---
DATE: 05/29/2018 SUBJECTIVE: Princess Pelayo is afebrile now. She is mild short of breath. She has UTI. Urine cultures are positive for E. coli and Pseudomonas aeruginosa. The patient is on meropenem, and the patient is doing well. PHYSICAL EXAMINATION: VITAL SIGNS: The patient's blood pressure is 158/87, pulse 90, respiratory rate 20, and temperature 99. LUNGS: Clear. CARDIOVASCULAR SYSTEM: S1 and S2 are regular. ABDOMEN: Soft and nontender. Bowel sounds are positive. ASSESSMENT: 1. Urinary tract infection, multidrug resistant, multiple germs including Escherichia coli and Pseudomonas, on Merrem. 2. Hypertension. 3. Chronic obstructive pulmonary disease. 4. Type 2 diabetes. PLAN: Continue IV antibiotics. Monitor the patient. Tylor Gregory MD
--- NOTE | 2018-05-30 00:21 | PN ---
DATE: 05/29/2018 SUBJECTIVE: The patient is seen today, 05/29/2018. The patient is afebrile, on meropenem. PHYSICAL EXAMINATION: VITAL SIGNS: Blood pressure 164/84, pulse 99, respiratory rate 20, temperature 97.8. LUNGS: Decreased air entry. Positive rhonchi. CARDIOVASCULAR SYSTEM: S1 . ABDOMEN: Soft. ASSESSMENT: 1. Urinary tract infection, postoperative. 2. Lumbar disk surgery. 3. Type 2 diabetes, steroid induced. 4. Hypertension. 5. Anxiety and depression. PLAN: Continue IV antibiotics. Meropenem. ID followup. Monitor the patient. Tylor Gregory MD
[2018-05-30] MEDS: Meropenem 1 GM in Sodium Chloride 0.9% 100 ML IVPB SCH (00:34)
[2018-05-30] MEDS: MethylPREDNISolone 40 mg Vial IVP SCH (00:35)
[2018-05-30] MEDS: Albuterol-Ipratrop 3 mg / 0.5 (3 ml) UD INH SCH ×4 (01:13→19:14)
[2018-05-30] MEDS: (Novolog) Insulin Aspart, Recombinant 100 u/ml 10 ml vial SC SCH ×4 (07:55→22:54)
[2018-05-30] MEDS: Azithromycin 500 MG in Sodium Chloride 0.9% 250 ML IVPB SCH (09:27)
[2018-05-30] MEDS: Mupirocin 2% Ointment (NASAL) NAS SCH (09:29)
--- NOTE | 2018-05-30 18:07 | CP.PCM.PN ---
Subjective - Date & Time of Evaluation Date of Evaluation: 05/30/18 Time of Evaluation: 18:07 - Subjective Subjective: AFEBRILE, NO COMPLAINTS COMFORTABLE. ON IV ABX. LABS REVIEWED; NO NEW LABS MRSA +VE URINE CULTURE +VE +VE E. COLI / PSEUDOMONAS AERUGINOSA R - CEFEPIME. blood cultures 2:2 sets -ve x 48hrs. CXR 05/27/18 RT. PLEURAL EFFUSION/ ?ATELECTASIS VS PNEUMONIA. Objective - Vital Signs/Intake and Output Vital Signs (last 24 hours): Temp Pulse Resp BP Pulse Ox 97.8 F 84 20 134/68 97 05/29/18 15:00 05/30/18 01:00 05/29/18 15:00 05/30/18 09:28 05/29/18 15:00 Intake and Output: 05/30/18 05/30/18 06:59 18:59 Intake Total 600 Output Total 775 Balance -175 - Medications Medications: Current Medications Acetaminophen (Tylenol 325mg Tab) 650 mg PO Q4 PRN PRN Reason: Fever >100.4 F Last Admin: 05/29/18 21:06 Dose: 650 mg Albuterol/Ipratropium (Duoneb 3 Mg/0.5 Mg (3 Ml) Ud) 3 ml INH RQ6 [facility] Last Admin: 05/30/18 07:24 Dose: 3 ml Famotidine (Pepcid) 20 mg PO DAILY [facility] Last Admin: 05/30/18 09:29 Dose: 20 mg Azithromycin 500 mg/ Sodium (Chloride) 250 mls @ 250 mls/hr IVPB Q24H [facility]; Protocol Last Admin: 05/30/18 09:27 Dose: 250 mls/hr Meropenem 1 gm/ Sodium (Chloride) 100 mls @ 100 mls/hr IVPB Q12H [facility]; Protocol Last Admin: 05/30/18 00:34 Dose: 100 mls/hr Insulin Aspart (Novolog) 0 unit SC ACHS [facility]; Protocol Last Admin: 05/30/18 12:11 Dose: Not Given Lamotrigine (Lamictal) 100 mg PO BID [facility] Last Admin: 05/30/18 09:29 Dose: 100 mg Lidocaine (Lidocaine 5%) 0 gm TOP Q12 PRN PRN Reason: BACK PAIN Losartan Potassium (Cozaar) 50 mg PO DAILY [facility] Last Admin: 05/30/18 09:29 Dose: 50 mg Methylprednisolone (Solu-Medrol) 40 mg IVP Q12H [facility] Stop: 05/31/18 12:31 Last Admin: 05/30/18 00:35 Dose: 40 mg Mupirocin (Bactroban 2% Nasal) 0.25 gm ALYSSA BID [facility] Last Admin: 05/30/18 09:29 Dose: 0.25 gm Quetiapine Fumarate (Seroquel Xr) 150 mg PO HS [facility] Last Admin: 05/29/18 21:07 Dose: 150 mg Rosuvastatin Calcium (Crestor) 20 mg PO HS [facility] Last Admin: 05/29/18 21:07 Dose: 20 mg - Labs Labs: 05/27/18 06:41 05/27/18 06:41 PT 12.6 SECONDS (9.7-12.2) H 05/26/18 01:17 INR 1.2 05/26/18 01:17 APTT 20 SECONDS (21-34) L 05/26/18 01:17 - Constitutional Appears: No Acute Distress - Head Exam Head Exam: NORMAL INSPECTION - Eye Exam Eye Exam: EOMI, PERRL - ENT Exam ENT Exam: Normal Oropharynx - Neck Exam Neck Exam: Normal Inspection - Respiratory Exam Respiratory Exam: Decreased Breath Sounds (RT SIDE) - Cardiovascular Exam Cardiovascular Exam: REGULAR RHYTHM, +S1, +S2 - GI/Abdominal Exam GI & Abdominal Exam: Soft, Normal Bowel Sounds. absent: Tenderness - Extremities Exam Extremities Exam: Normal Capillary Refill. absent: Calf Tenderness, Pedal Edema - Neurological Exam Neurological Exam: Awake, CN II-XII Intact, Oriented x3, Reflexes Normal - Psychiatric Exam Psychiatric exam: Normal Mood - Skin Skin Exam: Normal Color, Warm Assessment and Plan (1) Septic shock Status: Acute (2) Urinary tract infection Status: Acute (3) Pneumonia Status: Acute (4) COPD with exacerbation Status: Acute (5) Depression Status: Chronic (6) Schizophrenia Status: Acute (7) Diabetes mellitus Status: Acute (8) Acute prerenal azotemia Status: Acute - Assessment and Plan (Free Text) Plan: * CONTINUE iv mERREM 1 G EVERY 12 HOURLY 05/28/18 CONTINUE IV ZITHROMAX 500MG IVPB [id number] 05/28/18 PATIENT GOT ONE DOSE OF VANCOMYCIN 1 G IN THE ER 05/25/18. MUPIRICON 2% NARISLOCALLY BID F/U BLOOD WORKS IN AM REPEAT UA/URINE CULTURES CONTACT PRECAUTIONS. +VE MRSA- colonization /+VE PSEUDOMONAS IN URINE
[2018-05-30] MEDS: QUEtiapine 150 mg XR Tab PO SCH (22:32)
--- NOTE | 2018-05-30 23:05 | CP.PCM.PN ---
Subjective - Subjective Subjective: dictated Objective - Vital Signs/Intake and Output Vital Signs (last 24 hours): Temp Pulse Resp BP Pulse Ox 97.8 F 84 20 134/68 97 05/29/18 15:00 05/30/18 01:00 05/29/18 15:00 05/30/18 09:28 05/29/18 15:00 Intake and Output: 05/30/18 05/31/18 18:59 06:59 Intake Total 240 Balance 240 - Medications Medications: Current Medications Acetaminophen (Tylenol 325mg Tab) 650 mg PO Q4 PRN PRN Reason: Fever >100.4 F Last Admin: 05/29/18 21:06 Dose: 650 mg Albuterol/Ipratropium (Duoneb 3 Mg/0.5 Mg (3 Ml) Ud) 3 ml INH RQ6 [facility] Last Admin: 05/30/18 19:14 Dose: 3 ml Famotidine (Pepcid) 20 mg PO DAILY [facility] Last Admin: 05/30/18 09:29 Dose: 20 mg Azithromycin 500 mg/ Sodium (Chloride) 250 mls @ 250 mls/hr IVPB Q24H [facility]; Protocol Last Admin: 05/30/18 09:27 Dose: 250 mls/hr Meropenem 1 gm/ Sodium (Chloride) 100 mls @ 100 mls/hr IVPB Q12H [facility]; Protocol Last Admin: 05/30/18 00:34 Dose: 100 mls/hr Insulin Aspart (Novolog) 0 unit SC ACHS [facility]; Protocol Last Admin: 05/30/18 22:54 Dose: Not Given Lamotrigine (Lamictal) 100 mg PO BID [facility] Last Admin: 05/30/18 18:39 Dose: 100 mg Lidocaine (Lidocaine 5%) 0 gm TOP Q12 PRN PRN Reason: BACK PAIN Losartan Potassium (Cozaar) 50 mg PO DAILY [facility] Last Admin: 05/30/18 09:29 Dose: 50 mg Methylprednisolone (Solu-Medrol) 40 mg IVP Q12H [facility] Stop: 05/31/18 12:31 Last Admin: 05/30/18 00:35 Dose: 40 mg Mupirocin (Bactroban 2% Nasal) 0.25 gm ALYSSA BID [facility] Last Admin: 05/30/18 09:29 Dose: 0.25 gm Quetiapine Fumarate (Seroquel Xr) 150 mg PO HS [facility] Last Admin: 05/30/18 22:32 Dose: 150 mg Rosuvastatin Calcium (Crestor) 20 mg PO HS [facility] Last Admin: 05/30/18 22:33 Dose: 20 mg - Labs Labs: 05/27/18 06:41 05/27/18 06:41 PT 12.6 SECONDS (9.7-12.2) H 05/26/18 01:17 INR 1.2 05/26/18 01:17 APTT 20 SECONDS (21-34) L 05/26/18 01:17
[2018-05-31 01:34] LABS: OXYCODONE SCREEN negative
[2018-05-31] MEDS: Albuterol-Ipratrop 3 mg / 0.5 (3 ml) UD INH SCH ×4 (02:12→19:32)
--- NOTE | 2018-05-31 02:29 | PN ---
DATE: 05/30/2018 SUBJECTIVE: The patient is afebrile, feels better. No nausea or vomiting. No temperature. She is on antibiotics. Seen by ID. Blood sugars are under control. PHYSICAL EXAMINATION: VITAL SIGNS: BP 134/68, pulse 84, respiratory rate 18, and temperature 99. LUNGS: Bilateral scattered rhonchi. CVS: S1, S2 regular. ABDOMEN: Soft, nontender. Bowel sounds are positive. ASSESSMENT: 1. Urinary tract infection due to Escherichia coli, Pseudomonas. The patient is on Merrem. 2. Chronic obstructive pulmonary disease. 3. Steroid induced diabetes. 4. Lumbar disk surgery. PLAN: Physical therapy, antibiotics. ID followup. Monitor the patient. Tylor Gregory MD
[2018-05-31] MEDS: MethylPREDNISolone 40 mg Vial IVP SCH ×2 (02:35→12:08)
[2018-05-31] MEDS: Meropenem 1 GM in Sodium Chloride 0.9% 100 ML IVPB SCH ×2 (02:36→13:30)
[2018-05-31 02:44] VITALS: O2SAT 95
[2018-05-31 06:37] LABS: BASO % 0.2 % (0.0-2.0); HEMOGLOBIN 10.9 g/dL (11.0-16.0); LYMPH # 1.1 K/uL (1.0-4.3); LYMPH % 11.5 % (20.0-40.0); MEAN CELL VOLUME 86.4 fL (81.0-99.0); MEAN CORPUSCULAR HEMOGLOBIN 28.5 pg (27.0-31.0); MEAN PLATELET VOLUME 7.1 fL (7.2-11.7); MONO # 0.4 K/uL (0.0-0.8); MONO % 3.9 % (0.0-10.0); NEUT % 84.4 % (50.0-75.0); RBC 3.81 Mil/uL (3.80-5.20); RED CELL DISTRIBUTION WIDTH 16.2 % (11.5-14.5); WHITE BLOOD COUNT 9.5 K/uL (4.8-10.8)
[2018-05-31 07:02] LABS: ALB/GLOB RATIO 1.1 (1.0-2.1); ALBUMIN 3.8 g/dL (3.5-5.0); ALT/SGPT 76 U/L (9-52); AST/SGOT 70 U/L (14-36); BILIRUBIN,DIRECT 0.4 mg/dL (0.0-0.4); BLOOD UREA NITROGEN 29 mg/dL (7-17); CALCIUM 8.9 mg/dl (8.6-10.4); GFR NON-AFRICAN AMERICAN > 60
[2018-05-31] MEDS: (Novolog) Insulin Aspart, Recombinant 100 u/ml 10 ml vial SC SCH ×4 (07:30→21:20)
--- NOTE | 2018-05-31 08:18 | RAD ---
Date of service: 05/31/2018 HISTORY: RT EFFUSION VS PNEUMONIA COMPARISON: Portable chest 05/27/2018. FINDINGS: LUNGS: Improved aeration is appreciate throughout the mid inferior right lung zones with diminished atelectasis and limited residual laterally. Borderline patchy infiltrate right infrahilar space. None is seen at the left. PLEURA: No significant pleural effusion identified, no pneumothorax apparent. CARDIOVASCULAR: Calcific atherosclerotic changes are seen related to the thoracic aorta. Normal cardiac size. No pulmonary vascular congestion. OSSEOUS STRUCTURES: No significant abnormalities. VISUALIZED UPPER ABDOMEN: Normal. OTHER FINDINGS: None. IMPRESSION: Improved aeration right lung with limited residual linear atelectasis laterally and limited perihilar patchy atelectasis or infiltrate.
[2018-05-31] MEDS: Mupirocin 2% Ointment (NASAL) NAS SCH ×2 (10:40→18:08)
[2018-05-31] MEDS: Azithromycin 500 MG in Sodium Chloride 0.9% 250 ML IVPB SCH (12:03)
--- NOTE | 2018-05-31 14:21 | CP.PCM.PN ---
Subjective - Date & Time of Evaluation Date of Evaluation: 05/31/18 Time of Evaluation: 14:21 - Subjective Subjective: AFEBRILE, S/P MIDLINE PLACEMENT TODAY 05/31/18 FOLYS PLACED LAST NIGHT PT DID NOT VOID X 6HRS AND RESIDUAL WAS >500CC PER RN ON DUTY. OFFERS NO COMPLAINTS ANXIOUS O GO HOMME ON IV ABX CASE DISCUSSED W [employer] MS FLYNN PT TO GET IV MERREM 1GM IVPB [id number] X 7 DAYS OPD. Objective - Vital Signs/Intake and Output Vital Signs (last 24 hours): Temp Pulse Resp BP Pulse Ox 98.5 F 90 20 140/85 95 05/31/18 04:00 05/31/18 04:00 05/31/18 04:00 05/31/18 04:00 05/31/18 04:00 Intake and Output: 05/31/18 05/31/18 06:59 18:59 Intake Total 580 Output Total 1200 Balance -620 - Medications Medications: Current Medications Acetaminophen (Tylenol 325mg Tab) 650 mg PO Q4 PRN PRN Reason: Fever >100.4 F Last Admin: 05/31/18 13:44 Dose: 650 mg Albuterol/Ipratropium (Duoneb 3 Mg/0.5 Mg (3 Ml) Ud) 3 ml INH RQ6 [facility] Last Admin: 05/31/18 02:12 Dose: Not Given Famotidine (Pepcid) 20 mg PO DAILY [facility] Last Admin: 05/31/18 10:39 Dose: 20 mg Azithromycin 500 mg/ Sodium (Chloride) 250 mls @ 250 mls/hr IVPB Q24H [facility]; Protocol Last Admin: 05/31/18 12:03 Dose: 250 mls/hr Meropenem 1 gm/ Sodium (Chloride) 100 mls @ 100 mls/hr IVPB Q12H [facility]; Protocol Last Admin: 05/31/18 13:30 Dose: 100 mls/hr Insulin Aspart (Novolog) 0 unit SC ACHS [facility]; Protocol Last Admin: 05/31/18 11:30 Dose: Not Given Lamotrigine (Lamictal) 100 mg PO BID [facility] Last Admin: 05/31/18 10:39 Dose: 100 mg Lidocaine (Lidocaine 5%) 0 gm TOP Q12 PRN PRN Reason: BACK PAIN Losartan Potassium (Cozaar) 50 mg PO DAILY [facility] Last Admin: 05/31/18 10:40 Dose: 50 mg Mupirocin (Bactroban 2% Nasal) 0.25 gm ALYSSA BID [facility] Last Admin: 05/31/18 10:40 Dose: 0.25 gm Quetiapine Fumarate (Seroquel Xr) 150 mg PO [facility] Last Admin: 05/30/18 22:32 Dose: 150 mg Rosuvastatin Calcium (Crestor) 20 mg PO [facility] Last Admin: 05/30/18 22:33 Dose: 20 mg - Labs Labs: 05/31/18 06:26 05/31/18 06:26 PT 12.6 SECONDS (9.7-12.2) H 05/26/18 01:17 INR 1.2 05/26/18 01:17 APTT 20 SECONDS (21-34) L 05/26/18 01:17 - Constitutional Appears: No Acute Distress - Head Exam Head Exam: NORMAL INSPECTION - ENT Exam ENT Exam: Normal Oropharynx - Neck Exam Neck Exam: Normal Inspection - Respiratory Exam Respiratory Exam: Clear to Ausculation Bilateral - Cardiovascular Exam Cardiovascular Exam: REGULAR RHYTHM, +S1, +S2 - GI/Abdominal Exam GI & Abdominal Exam: Soft, Normal Bowel Sounds. absent: Tenderness - Extremities Exam Extremities Exam: Normal Capillary Refill. absent: Calf Tenderness, Pedal Edema - Neurological Exam Neurological Exam: Awake, CN II-XII Intact, Oriented x3, Reflexes Normal - Psychiatric Exam Psychiatric exam: Normal Mood - Skin Skin Exam: Normal Color, Warm Assessment and Plan (1) Septic shock Status: Acute (2) Urinary tract infection Status: Acute (3) Pneumonia Status: Acute (4) COPD with exacerbation Status: Acute (5) Depression Status: Chronic (6) Schizophrenia Status: Acute (7) Diabetes mellitus Status: Acute (8) Acute prerenal azotemia Status: Acute - Assessment and Plan (Free Text) Plan: ABOVE. CONSIDER A TRIAL OF VOIDING AGAIN IN AM . CONTINUE IV ABX DISCUSSED ABOVE WHEN CLEARED FOR D/C PER PMD.
--- NOTE | 2018-05-31 14:48 | CARD ---
APPROVED REPORT Date of service: 05/31/2018 EKG Measurement Heart [id number] <Conclusion> Sinus tachycardia Otherwise normal ECG
[2018-05-31] MEDS: QUEtiapine 150 mg XR Tab PO SCH (21:22)
--- NOTE | 2018-05-31 23:11 | CP.PCM.PN ---
Subjective - Subjective Subjective: dictated Objective - Vital Signs/Intake and Output Vital Signs (last 24 hours): Temp Pulse Resp BP Pulse Ox 98.5 F 90 20 140/85 95 05/31/18 04:00 05/31/18 04:00 05/31/18 04:00 05/31/18 04:00 05/31/18 04:00 Intake and Output: 05/31/18 06/01/18 18:59 06:59 Output Total 1300 Balance -1300 - Medications Medications: Current Medications Acetaminophen (Tylenol 325mg Tab) 650 mg PO Q4 PRN PRN Reason: Fever >100.4 F Last Admin: 05/31/18 21:22 Dose: 650 mg Albuterol/Ipratropium (Duoneb 3 Mg/0.5 Mg (3 Ml) Ud) 3 ml INH RQ6 [facility] Last Admin: 05/31/18 19:32 Dose: 3 ml Docusate Sodium (Colace) 100 mg PO BID [facility] Last Admin: 05/31/18 18:07 Dose: Not Given Famotidine (Pepcid) 20 mg PO DAILY [facility] Last Admin: 05/31/18 10:39 Dose: 20 mg Azithromycin 500 mg/ Sodium (Chloride) 250 mls @ 250 mls/hr IVPB Q24H [facility]; Protocol Last Admin: 05/31/18 12:03 Dose: 250 mls/hr Meropenem 1 gm/ Sodium (Chloride) 100 mls @ 100 mls/hr IVPB Q12H [facility]; Protocol Last Admin: 05/31/18 13:30 Dose: 100 mls/hr Insulin Aspart (Novolog) 0 unit SC ACHS [facility]; Protocol Last Admin: 05/31/18 21:20 Dose: Not Given Lamotrigine (Lamictal) 100 mg PO BID [facility] Last Admin: 05/31/18 18:05 Dose: 100 mg Lidocaine (Lidocaine 5%) 0 gm TOP Q12 PRN PRN Reason: BACK PAIN Losartan Potassium (Cozaar) 50 mg PO DAILY [facility] Last Admin: 05/31/18 10:40 Dose: 50 mg Mupirocin (Bactroban 2% Nasal) 0.25 gm ALYSSA BID [facility] Last Admin: 05/31/18 18:08 Dose: 0.25 gm Quetiapine Fumarate (Seroquel Xr) 150 mg PO HS [facility] Last Admin: 05/31/18 21:22 Dose: 150 mg Rosuvastatin Calcium (Crestor) 20 mg PO HS [facility] Last Admin: 05/31/18 21:22 Dose: 20 mg - Labs Labs: 05/31/18 06:26 05/31/18 06:26 PT 12.6 SECONDS (9.7-12.2) H 05/26/18 01:17 INR 1.2 05/26/18 01:17 APTT 20 SECONDS (21-34) L 05/26/18 01:17
[2018-06-01] MEDS: Meropenem 1 GM in Sodium Chloride 0.9% 100 ML IVPB SCH ×2 (01:03→14:00)
[2018-06-01] MEDS: Albuterol-Ipratrop 3 mg / 0.5 (3 ml) UD INH SCH ×4 (01:14→19:41)
--- NOTE | 2018-06-01 01:53 | PN ---
DATE: 05/31/2018 SUBJECTIVE: The patient is afebrile. The patient's Bosch catheter had to be reinserted yesterday because of urinary retention. She is on antibiotics, Merrem, and she is being seen by ID. No fever. No chills. PHYSICAL EXAMINATION: VITAL SIGNS: Blood pressure 140/85, pulse 90, respiratory rate 20, and temperature 98.5. LUNGS: Bilateral scattered rales and rhonchi. Decreased air entry. CARDIOVASCULAR SYSTEM: S1 and S2, regular. ABDOMEN: Soft and nontender. Bowels sounds are positive. Bosch catheter with yellow urine. ASSESSMENT: 1. Complicated urinary tract infection postoperative with Escherichia coli and pseudomonas aeruginosa, on Merrem. 2. Neurogenic bladder. 3. Hypertension. 4. Steroid-induced diabetes. 5. Status post spine surgery. PLAN: Case discussed with the patient's son, who is interested in the patient going home instead of subacute rehab. We will arrange home supply, home physical therapy, homemaker. Continue antibiotics and discuss with ID about the duration of antibiotics. Tylor Gregory MD
[2018-06-01 02:22] VITALS: BP 182/90; RESP 16
[2018-06-01] MEDS: (Novolog) Insulin Aspart, Recombinant 100 u/ml 10 ml vial SC SCH ×4 (07:30→21:21)
[2018-06-01] MEDS: Mupirocin 2% Ointment (NASAL) NAS SCH ×2 (09:29→17:24)
[2018-06-01] MEDS: Azithromycin 500 MG in Sodium Chloride 0.9% 250 ML IVPB SCH (09:34)
--- NOTE | 2018-06-01 14:12 | CP.PCM.PN ---
Subjective - Date & Time of Evaluation Date of Evaluation: 06/01/18 Time of Evaluation: 14:07 - Subjective Subjective: PATIENT SEEN AND EXAMINED AT THE BEDSIDE A HOSPITAL BED WILL BE REQUIRED TO PREVENT FURTHER HOSPITALIZATION DUE TO RESPIRATORY ISSUE MS MELLO HAS COPD. SHE WILL NEED A HOSPITAL BED AT HOME TO MAINTAIN A HEAD OF BED ELEVATION AT LEAST 30 DEGREES FOR OPTIMAL RESPIRATORY FUNCTION / ALSO PATIENT HAS A CHRONIC BACK PAIN Objective - Vital Signs/Intake and Output Vital Signs (last 24 hours): Temp Pulse Resp BP Pulse Ox 98.5 F 82 16 182/90 H 95 06/01/18 00:00 06/01/18 10:00 06/01/18 00:00 06/01/18 00:00 06/01/18 00:00 Intake and Output: 06/01/18 06/01/18 06:59 18:59 Intake Total 100 Balance 100 - Medications Medications: Current Medications Acetaminophen (Tylenol 325mg Tab) 650 mg PO Q4 PRN PRN Reason: Fever >100.4 F Last Admin: 05/31/18 21:22 Dose: 650 mg Albuterol/Ipratropium (Duoneb 3 Mg/0.5 Mg (3 Ml) Ud) 3 ml INH RQ6 [facility] Last Admin: 06/01/18 07:40 Dose: 3 ml Docusate Sodium (Colace) 100 mg PO BID [facility] Last Admin: 06/01/18 09:27 Dose: 100 mg Famotidine (Pepcid) 20 mg PO DAILY [facility] Last Admin: 06/01/18 09:28 Dose: 20 mg Azithromycin 500 mg/ Sodium (Chloride) 250 mls @ 250 mls/hr IVPB Q24H [facility]; Protocol Last Admin: 06/01/18 09:34 Dose: 250 mls/hr Meropenem 1 gm/ Sodium (Chloride) 100 mls @ 100 mls/hr IVPB Q12H [facility]; Protocol Last Admin: 06/01/18 01:03 Dose: 100 mls/hr Insulin Aspart (Novolog) 0 unit SC ACHS [facility]; Protocol Last Admin: 06/01/18 11:30 Dose: Not Given Lamotrigine (Lamictal) 100 mg PO BID [facility] Last Admin: 06/01/18 09:28 Dose: 100 mg Lidocaine (Lidocaine 5%) 0 gm TOP Q12 PRN PRN Reason: BACK PAIN Losartan Potassium (Cozaar) 50 mg PO DAILY [facility] Last Admin: 06/01/18 09:28 Dose: 50 mg Mupirocin (Bactroban 2% Nasal) 0.25 gm ALYSSA BID [facility] Last Admin: 06/01/18 09:29 Dose: 0.25 gm Quetiapine Fumarate (Seroquel Xr) 150 mg PO [facility] Last Admin: 05/31/18 21:22 Dose: 150 mg Rosuvastatin Calcium (Crestor) 20 mg PO [facility] Last Admin: 05/31/18 21:22 Dose: 20 mg - Labs Labs: 05/31/18 06:26 05/31/18 06:26 PT 12.6 SECONDS (9.7-12.2) H 05/26/18 01:17 INR 1.2 05/26/18 01:17 APTT 20 SECONDS (21-34) L 05/26/18 01:17
--- NOTE | 2018-06-01 15:51 | CP.PCM.PN ---
Subjective - Date & Time of Evaluation Date of Evaluation: 06/01/18 Time of Evaluation: 15:51 - Subjective Subjective: PATIENT SEEN AND EXAMINED AT THE BEDSIDE Objective - Vital Signs/Intake and Output Vital Signs (last 24 hours): Temp Pulse Resp BP Pulse Ox 98.5 F 82 16 182/90 H 95 06/01/18 00:00 06/01/18 10:00 06/01/18 00:00 06/01/18 00:00 06/01/18 00:00 Intake and Output: 06/01/18 06/01/18 06:59 18:59 Intake Total 100 100 Balance 100 100 - Medications Medications: Current Medications Acetaminophen (Tylenol 325mg Tab) 650 mg PO Q4 PRN PRN Reason: Fever >100.4 F Last Admin: 05/31/18 21:22 Dose: 650 mg Albuterol/Ipratropium (Duoneb 3 Mg/0.5 Mg (3 Ml) Ud) 3 ml INH RQ6 [facility] Last Admin: 06/01/18 14:13 Dose: 3 ml Docusate Sodium (Colace) 100 mg PO BID [facility] Last Admin: 06/01/18 09:27 Dose: 100 mg Famotidine (Pepcid) 20 mg PO DAILY [facility] Last Admin: 06/01/18 09:28 Dose: 20 mg Azithromycin 500 mg/ Sodium (Chloride) 250 mls @ 250 mls/hr IVPB Q24H [facility]; Protocol Last Admin: 06/01/18 09:34 Dose: 250 mls/hr Meropenem 1 gm/ Sodium (Chloride) 100 mls @ 100 mls/hr IVPB Q12H [facility]; Protocol Last Admin: 06/01/18 01:03 Dose: 100 mls/hr Insulin Aspart (Novolog) 0 unit SC ACHS [facility]; Protocol Last Admin: 06/01/18 11:30 Dose: Not Given Lamotrigine (Lamictal) 100 mg PO BID [facility] Last Admin: 06/01/18 09:28 Dose: 100 mg Lidocaine (Lidocaine 5%) 0 gm TOP Q12 PRN PRN Reason: BACK PAIN Losartan Potassium (Cozaar) 50 mg PO DAILY [facility] Last Admin: 06/01/18 09:28 Dose: 50 mg Mupirocin (Bactroban 2% Nasal) 0.25 gm ALYSSA BID [facility] Last Admin: 06/01/18 09:29 Dose: 0.25 gm Quetiapine Fumarate (Seroquel Xr) 150 mg PO HS [facility] Last Admin: 05/31/18 21:22 Dose: 150 mg Rosuvastatin Calcium (Crestor) 20 mg PO HS [facility] Last Admin: 05/31/18 21:22 Dose: 20 mg - Labs Labs: 05/31/18 06:26 05/31/18 06:26 PT 12.6 SECONDS (9.7-12.2) H 05/26/18 01:17 INR 1.2 05/26/18 01:17 APTT 20 SECONDS (21-34) L 05/26/18 01:17 Assessment and Plan - Assessment and Plan (Free Text) Assessment: FOLLOW UP WITH DR ODELL IN HIS OFFICE -----CALL FOR APPOINTMENT FOLLOW UP WITH DR VERMA IN HER OFFICE -----CALL FOR APPOINTMENT CONTINUE HOME MEDICATION NEW PRESCRIPTION GIVEN [place] 50 MG DIALY PO CRESTOR 20 MG PO AT HS MERREM 1 G IVPB Q12H FOR 7 DAYS ACTIVITTY TOLERATED VNA AND HOME PT CALL DR ODELL OR GO TO THE EMERGENCY ROOM IF SYMPTOM RETURN OR WORSENING
[2018-06-01 18:39] VITALS: PULSE 86
[2018-06-01] MEDS: QUEtiapine 150 mg XR Tab PO SCH (21:52)
--- NOTE | 2018-06-01 21:52 | CP.PCM.PN ---
Subjective - Subjective Subjective: dictated Objective - Vital Signs/Intake and Output Vital Signs (last 24 hours): Temp Pulse Resp BP Pulse Ox 98.5 F 86 16 182/90 H 95 06/01/18 00:00 06/01/18 17:00 06/01/18 00:00 06/01/18 00:00 06/01/18 00:00 Intake and Output: 06/01/18 06/02/18 18:59 06:59 Intake Total 200 0 Balance 200 0 - Medications Medications: Current Medications Acetaminophen (Tylenol 325mg Tab) 650 mg PO Q4 PRN PRN Reason: Fever >100.4 F Last Admin: 05/31/18 21:22 Dose: 650 mg Albuterol/Ipratropium (Duoneb 3 Mg/0.5 Mg (3 Ml) Ud) 3 ml INH RQ6 [facility] Last Admin: 06/01/18 19:41 Dose: 3 ml Docusate Sodium (Colace) 100 mg PO BID [facility] Last Admin: 06/01/18 17:24 Dose: 100 mg Famotidine (Pepcid) 20 mg PO DAILY [facility] Last Admin: 06/01/18 09:28 Dose: 20 mg Azithromycin 500 mg/ Sodium (Chloride) 250 mls @ 250 mls/hr IVPB Q24H [facility]; Protocol Last Admin: 06/01/18 09:34 Dose: 250 mls/hr Meropenem 1 gm/ Sodium (Chloride) 100 mls @ 100 mls/hr IVPB Q12H [facility]; Protocol Last Admin: 06/01/18 14:00 Dose: 100 mls/hr Insulin Aspart (Novolog) 0 unit SC ACHS [facility]; Protocol Last Admin: 06/01/18 21:21 Dose: Not Given Lamotrigine (Lamictal) 100 mg PO BID [facility] Last Admin: 06/01/18 17:24 Dose: 100 mg Lidocaine (Lidocaine 5%) 0 gm TOP Q12 PRN PRN Reason: BACK PAIN Losartan Potassium (Cozaar) 50 mg PO DAILY [facility] Last Admin: 06/01/18 09:28 Dose: 50 mg Mupirocin (Bactroban 2% Nasal) 0.25 gm ALYSSA BID [facility] Last Admin: 06/01/18 17:24 Dose: 0.25 gm Quetiapine Fumarate (Seroquel Xr) 150 mg PO HS [facility] Last Admin: 05/31/18 21:22 Dose: 150 mg Rosuvastatin Calcium (Crestor) 20 mg PO HS [facility] Last Admin: 05/31/18 21:22 Dose: 20 mg - Labs Labs: 05/31/18 06:26 05/31/18 06:26 PT 12.6 SECONDS (9.7-12.2) H 05/26/18 01:17 INR 1.2 05/26/18 01:17 APTT 20 SECONDS (21-34) L 05/26/18 01:17
[2018-06-02 00:24] VITALS: TEMP 98.4
--- NOTE | 2018-06-02 21:04 | CP.PCM.DIS ---
Provider - Provider Date of Admission: 05/26/18 03:08 Attending physician: Tylor Gregory MD Consults: 05/31/18 14:49 Case Management Referral Routine Comment: Physician Instructions: MERRUM Q 12 X 7 DAYS Reason For Exam: PLEASE ARRANGE HOME INFUSION FOR Reason for Referral: Discharge Planning 05/26/18 04:29 Social Work Referral Routine Comment: Family Concern about [facility] also Physician Instructions: Reason For Exam: Baylock Score 05/26/18 04:33 Nursing Referral for Palliative Care Routine Comment: Physician Instructions: Reason For Exam: Patient has several comobidities with Decubitus 05/26/18 07:00 Infectious Disease Consult Routine Comment: Consulting Provider: Dale Sanders Consulting Physician: Dale Sanders Reason for Consult: CODE SEPSIS 05/26/18 10:00 Nursing Referral for Wound Care Routine Comment: Physician Instructions: Reason For Exam: BILAT. BUTTOCKS Hospital Course - Lab Results Lab Results: Micro Results 05/30/18 08:18 Urine,Clean Catch Urine Culture - Final No Growth (<1,000 CFU/ML) 05/26/18 00:45 Blood Blood Culture - Final NO GROWTH AFTER 5 DAYS 05/26/18 00:45 Blood Gram Stain - Final TEST NOT PERFORMED 05/26/18 01:25 Blood Blood Culture - Final NO GROWTH AFTER 5 DAYS 05/26/18 01:25 Blood Gram Stain - Final TEST NOT PERFORMED 05/26/18 03:08 Urine,Catheterized Urine Culture - Final Escherichia Coli Pseudomonas Aeruginosa 05/26/18 05:08 Naris MRSA Culture (Admit) - Final Most Recent Lab Values WBC 9.5 K/uL (4.8-10.8) 05/31/18 06:26 RBC 3.81 Mil/uL (3.80-5.20) 05/31/18 06:26 Hgb 10.9 g/dL (11.0-16.0) L D 05/31/18 06:26 Hct 32.9 % (34.0-47.0) L 05/31/18 06:26 MCV 86.4 fL (81.0-99.0) 05/31/18 06:26 MCH 28.5 pg (27.0-31.0) 05/31/18 06:26 MCHC 33.0 g/dL (33.0-37.0) 05/31/18 06:26 RDW 16.2 % (11.5-14.5) H 05/31/18 06:26 Plt Count 595 K/uL (130-400) H 05/31/18 06:26 MPV 7.1 fL (7.2-11.7) L 05/31/18 06:26 Neut % (Auto) 84.4 % (50.0-75.0) H 05/31/18 06:26 Lymph % (Auto) 11.5 % (20.0-40.0) L 05/31/18 06:26 Cherry % (Auto) 3.9 % (0.0-10.0) 05/31/18 06:26 Eos % (Auto) 0.0 % (0.0-4.0) 05/31/18 06:26 Baso % (Auto) 0.2 % (0.0-2.0) 05/31/18 06:26 Neut # (Auto) 8.0 K/uL (1.8-7.0) H 05/31/18 06:26 Lymph # (Auto) 1.1 K/uL (1.0-4.3) 05/31/18 06:26 Cherry # (Auto) 0.4 K/uL (0.0-0.8) 05/31/18 06:26 Eos # (Auto) 0.0 K/uL (0.0-0.7) 05/31/18 06:26 Baso # (Auto) 0.0 K/uL (0.0-0.2) 05/31/18 06:26 Neutrophils % (Manual) 89 % (50-75) H 05/27/18 06:41 Lymphocytes % (Manual) 7 % (20-40) L 05/27/18 06:41 Monocytes % (Manual) 3 % (0-10) 05/27/18 06:41 Eosinophils % (Manual) 1 % (0-4) 05/27/18 06:41 Toxic Granulation Present 05/27/18 06:41 Platelet Estimate Increased (NORMAL) H 05/27/18 06:41 Polychromasia Slight 05/27/18 06:41 Hypochromasia (manual) Slight 05/27/18 06:41 Anisocytosis (manual) Slight 05/27/18 06:41 PT 12.6 SECONDS (9.7-12.2) H 05/26/18 01:17 INR 1.2 05/26/18 01:17 APTT 20 SECONDS (21-34) L 05/26/18 01:17 pO2 20 mm/Hg (30-55) L 05/26/18 01:22 VBG pH 7.36 (7.32-7.43) 05/26/18 01:22 VBG pCO2 49 mmHg (40-60) 05/26/18 01:22 VBG HCO3 24.2 mmol/L 05/26/18 01:22 VBG Total CO2 29.2 mmol/L (22-28) H 05/26/18 01:22 VBG O2 Sat (Calc) 35.0 % (40-65) L 05/26/18 01:22 VBG Base Excess 1.5 mmol/L (0.0-2.0) 05/26/18 01:22 VBG Potassium 4.8 mmol/L (3.6-5.2) 05/26/18 01:22 Sodium 140.0 mmol/l (132-148) 05/26/18 01:22 Chloride 106.0 mmol/L (98-107) 05/26/18 01:22 Glucose 110 mg/dl (65-105) H 05/26/18 01:22 Lactate 2.0 mmol/L (0.7-2.1) 05/26/18 01:22 Sodium 139 mmol/L (132-148) 05/31/18 06:26 Potassium 4.4 mmol/L (3.6-5.2) 05/31/18 06:26 Chloride 105 mmol/L (98-107) 05/31/18 06:26 Carbon Dioxide 24 mmol/L (22-30) 05/31/18 06:26 Anion Gap 15 (10-20) 05/31/18 06:26 BUN 29 mg/dL (7-17) H 05/31/18 06:26 Creatinine 0.9 mg/dL (0.7-1.2) 05/31/18 06:26 Est GFR ( Amer) > 60 05/31/18 06:26 Est GFR (Non-Af Amer) > 60 05/31/18 06:26 POC Glucose (mg/dL) 104 mg/dL (65-110) 06/01/18 21:13 Random Glucose 127 mg/dL (65-105) H 05/31/18 06:26 Hemoglobin A1c 6.7 % (4.2-6.5) H 05/26/18 12:28 Lactic Acid 1.0 mmol/L (0.7-2.1) 05/26/18 05:08 Calcium 8.9 mg/dl (8.6-10.4) 05/31/18 06:26 Phosphorus 5.1 mg/dL (2.5-4.5) H 05/26/18 01:17 Magnesium 2.9 mg/dL (1.6-2.3) H 05/26/18 01:17 Total Bilirubin 0.4 mg/dL (0.2-1.3) 05/31/18 06:26 Direct Bilirubin 0.4 mg/dL (0.0-0.4) 05/31/18 06:26 AST 70 U/L (14-36) H 05/31/18 06:26 ALT 76 U/L (9-52) H D 05/31/18 06:26 Alkaline Phosphatase 103 U/L (38-126) 05/31/18 06:26 Total Creatine Kinase 2939 U/L (30-135) H 05/26/18 10:41 Troponin I < 0.0120 ng/mL (0.00-0.120) 05/31/18 06:26 C-React Prot High Sens > 15.00 mg/L (1.00-3.00) H 05/27/18 06:41 Total Protein 7.4 g/dL (6.3-8.3) 05/31/18 06:26 Albumin 3.8 g/dL (3.5-5.0) 05/31/18 06:26 Globulin 3.6 gm/dL (2.2-3.9) 05/31/18 06:26 Albumin/Globulin Ratio 1.1 (1.0-2.1) 05/31/18 06:26 Ethanolamine None detected 05/26/18 10:41 Venous Blood Potassium 4.8 mmol/L (3.6-5.2) 05/26/18 01:22 Urine Color Straw (YELLOW) 05/26/18 10:41 Urine Clarity Clear (Clear) 05/26/18 10:41 Urine pH 5.0 (5.0-8.0) 05/26/18 10:41 Ur Specific [place] 1.010 (1.003-1.030) 05/26/18 10:41 Urine Protein Negative mg/dL (NEGATIVE) 05/26/18 10:41 Urine Glucose (UA) Normal mg/dL (Normal) 05/26/18 10:41 Urine Ketones Negative mg/dL (NEGATIVE) 05/26/18 10:41 Urine Blood 2+ (NEGATIVE) H 05/26/18 10:41 Urine Nitrate Negative (NEGATIVE) 05/26/18 10:41 Urine Bilirubin Negative (NEGATIVE) 05/26/18 10:41 Urine Urobilinogen Normal mg/dL (0.2-1.0) 05/26/18 10:41 Ur Leukocyte Esterase 1+ [place]/uL (Negative) H 05/26/18 10:41 Urine WBC (Auto) 7 /hpf (0-5) H 05/26/18 10:41 Urine RBC (Auto) 29 /hpf (0-3) H 05/26/18 10:41 Urine WBC Clumps (Auto) Many /hpf (NONE) H 05/26/18 01:17 Ur Squamous Epith Cells < 1 /hpf (0-5) 05/26/18 10:41 Urine Bacteria Rare (<OCC) 05/26/18 10:41 Hyaline Casts 0-2 /lpf (0-2) 05/26/18 10:41 Granular Casts (Auto) 4 /lpf (0-1) 05/26/18 10:41 Urine Yeast (Budding) Many /hpf (NEGATIVE) H 05/26/18 01:17 Urine Eosinophils Positive (NEGATIVE) H 05/26/18 10:41 Urine Opiates Screen Negative (NEGATIVE) 05/26/18 02:38 Oxycodone Screen negative 05/26/18 10:41 Ur Oxycodone Comment See note 05/26/18 10:41 Urine Methadone Screen Negative (NEGATIVE) 05/26/18 02:38 Ur Barbiturates Screen Negative (NEGATIVE) 05/26/18 02:38 Ur Phencyclidine Scrn Negative (NEGATIVE) 05/26/18 02:38 Ur Amphetamines Screen Negative (NEGATIVE) 05/26/18 02:38 U Benzodiazepines Scrn Positive (NEGATIVE) 05/26/18 02:38 U Oth Cocaine Metabols Negative (NEGATIVE) 05/26/18 02:38 U Cannabinoids Screen Negative (NEGATIVE) 05/26/18 02:38 Toxicology Panel see note 05/26/18 10:41 Methyl Alcohol Level None detected 05/26/18 10:41 Isopropanol None detected 05/26/18 10:41 Acetone Level None detected 05/26/18 10:41 Ur L.pneumophila Ag Negative (NEGATIVE) 05/28/18 06:09 Mycoplasma pneumon IgM Negative (NEGATIVE) 05/28/18 06:09 Discharge Exam - Head Exam Head Exam: NORMAL INSPECTION Discharge Plan - Discharge Medications Prescriptions: Losartan [Cozaar] 50 mg PO DAILY 30 Days tab Rosuvastatin Calcium [Crestor] 20 mg PO HS #30 tab Meropenem [Merrem IV] 1 gm IVPB Q12 #14 vial - Follow Up Plan Condition: GOOD Disposition: HOME/ ROUTINE Instructions: Losartan, Meropenem, Rosuvastatin, Kidney Infection (DC), Urinary Tract Infection in Women (DC) Additional Instructions: FOLLOW UP WITH DR GREGORY IN HIS OFFICE -----CALL FOR APPOINTMENT FOLLOW UP WITH DR SANDERS IN HER OFFICE -----CALL FOR APPOINTMENT CONTINUE HOME MEDICATION NEW PRESCRIPTION GIVEN LOSARTAN 50 MG DIALY PO CRESTOR 20 MG PO AT HS MERREM 1 G IVPB Q12H FOR 7 DAYS ACTIVITTY TOLERATED VNA AND HOME PT CALL DR GREGORY OR GO TO THE EMERGENCY ROOM IF SYMPTOM RETURN OR WORSENING Referrals: Dale Sanders MD [Staff Provider] - Tylor Gregory MD [Staff Provider] -
--- NOTE | 2018-06-03 00:22 | PN ---
DATE: 06/02/2018 SUBJECTIVE: The patient is for discharge. She is afebrile. She was seen by ID. She will need home IV antibiotics for Merrem for E. coli and Pseudomonas aeruginosa. 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 All the arrangements have been made. No nausea or vomiting. No fever. No chills. PHYSICAL EXAMINATION: VITAL SIGNS: Blood pressure is 182/90, pulse 99, respiratory rate 16, and temperature 98.5. LUNGS: Decreased air entry. Positive rhonchi. CARDIOVASCULAR SYSTEM: S1 and S2 plus S4 positive. ABDOMEN: Soft. ASSESSMENT: 1. Complicated urinary tract infection with multidrug resistant, multiple germs, on antibiotics, for discharge on home antibiotics. 2. Hypertension. 3. Steroid-induced diabetes. 4. Bipolar disorder. PLAN: Plan for discharge tomorrow. Tylor Gregory MD
--- NOTE | 2018-06-03 05:43 | DS ---
DISCHARGE DIAGNOSES: 1. Complicated urinary tract infection. 2. Lumbar disk disease, status post surgery. 3. Steroid-induced diabetes. 4. Hypertension. 5. Bipolar disorder. HISTORY OF PRESENT ILLNESS: This is a 67-year-old female well known to me with a history of bipolar disorder, hypertension, anxiety, diabetes due to steroids. Came in because after surgery she was in a rehab where she developed fever, chills, abdominal pain, found to have urinary tract infection with E. coli and Pseudomonas. The patient was admitted to the floor, was started on Merrem. ID consult was done. The patient responded well to antibiotics. The patient is for discharge with outpatient followup. Condition upon discharge is stable. She was seen by ID. PHYSICAL EXAMINATION: VITAL SIGNS: Her blood pressure is 160/80, pulse 86, respiratory rate 12, temperature 98.4. LABORATORY DATA: Glucose 104, 124. WBC 9.5, hemoglobin 10.9, hematocrit 32.9, platelets 595. Sodium 139, potassium 4.4, chloride 105, bicarb 24, BUN 29, creatinine 0.9. CONDITION UPON DISCHARGE: Stable. Tylor Gregory MD
--- NOTE | 2018-06-06 21:39 | PQF ---
PROVIDER RESPONSE TEXT: Sepsis was ruled out REVIEWER QUERY TEXT: Rule Out Sepsis Clarification Rule out Sepsis is documented in the Medical Record. Please clarify whether: -- Patient has sepsis - Please document confirmed, suspected or probable causative organism - Please document confirmed, suspected or probable localized infection - Please clarify if sepsis is related to a device - Please clarify if sepsis was present on admission -- Sepsis was ruled out (include corresponding diagnosis for patient?s clinical picture and treatment ) -- Patient had sepsis which is resolved -- Other, please specify The patient's Clinical Indicators include: HYPOYENSVE UNRESPONSIVE==R/O SEPSIS =ICU FOR SEPTIC SHOCK POLEY CATH PLEASE CLARIFY AND DOCUMENT IF ==SEPSIS==WAS R/I or R/O OR WAS MELCHOR CATHETHER RELATED. Query created by: Dara Rhodes on 06/05/2018 11:16 AM Electronically signed by: Tylor Gregory MD 06/06/2018 9:36 PM
== END 2018-06-02 00:20 | disposition home health service (06) | DRG 689 ==
LOC: C.ER 00:36 → C.9I 03:08
PROVIDERS: ADMIT Internal Medicine; ATTEND Internal Medicine
PROC: 05HY33Z Insertion of Infusion Device into Upper Vein, Percutaneous Approach (ICD-10-PCS; principal; 2018-05-31)
DX: N39.0 Urinary tract infection, site not specified (principal); J18.9 Pneumonia, unspecified organism; J44.0 Chronic obstructive pulmonary disease with (acute) lower respiratory infection; J44.1 Chronic obstructive pulmonary disease with (acute) exacerbation; N17.9 Acute kidney failure, unspecified; T42.4X1A Poisoning by benzodiazepines, accidental (unintentional), initial encounter; B96.20 Unspecified Escherichia coli [E. coli] as the cause of diseases classified elsewhere; E78.5 Hyperlipidemia, unspecified; F02.80 Dementia in other diseases classified elsewhere, unspecified severity, without behavioral disturbance, psychotic disturbance, mood disturbance, and anxiety; F17.210 Nicotine dependence, cigarettes, uncomplicated; F31.9 Bipolar disorder, unspecified; F41.9 Anxiety disorder, unspecified; G30.9 Alzheimer's disease, unspecified; G89.29 Other chronic pain; I10 Essential (primary) hypertension; N31.9 Neuromuscular dysfunction of bladder, unspecified; Y92.89 Other specified places as the place of occurrence of the external cause; D64.9 Anemia, unspecified; E09.9 Drug or chemical induced diabetes mellitus without complications; M06.9 Rheumatoid arthritis, unspecified; F20.9 Schizophrenia, unspecified; M19.90 Unspecified osteoarthritis, unspecified site

== ENCOUNTER 2018-07-15 15:01 | Emergency (ER) | payer MEDICARE, OTHER ==
[2018-07-15 15:02] VITALS: BMI 29.2
[2018-07-15] MEDS ORDERED: Naproxen 550 mg Tab PO STA (15:42)
[2018-07-15] MEDS ORDERED: Naproxen 550 mg Tab PO ONE (15:58)
--- NOTE | 2018-07-15 15:58 | C.PDOC ---
History Of Present Illness 68 year old female presents to ED after she slipped and fell in her kitchen 2 hours prior to arrival. She states that her socks were slippery and that is what caused her to fall. Patient complains of sacral pain. She walks with a walker and has difficulty ambulating at baseline. Patient denies any other injuries. Time Seen by Provider: 07/15/18 15:13 Chief Complaint (Nursing): Back Pain History Per: Patient History/Exam Limitations: no limitations Onset/Duration Of Symptoms: Hrs (2) Current Symptoms Are (Timing): Still Present Previous Symptoms: None Associated Symptoms: None Past Medical History Reviewed: Historical Data, Nursing Documentation, Vital Signs Vital Signs: Last Vital Signs Temp 97.7 F 07/15/18 15:23 Pulse 61 07/15/18 15:23 Resp 20 07/15/18 15:23 BP 134/77 07/15/18 15:23 Pulse Ox 96 07/15/18 15:23 - Medical History PMH: Alzheimer's Disease, Anxiety, Asthma, Bronchitis, COPD, Dementia, Depression, HTN, Hypercholesterolemia, Rheumatoid Arthritis, Schizophrenia Surgical History: Back Surgery - [facility] Procedures ASSISTANCE WITH RESPIRATORY VENTILATION, <24 HRS, CPAP (07/06/15) INSERTION OF INFUSION DEVICE INTO UPPER VEIN, PERC APPROACH (05/26/18) Family History: States: Unknown Family Hx - Social History Hx Tobacco Use: Yes (3 cigarettes daily) Hx Alcohol Use: No Hx Substance Use: No - Immunization History Hx Tetanus Toxoid Vaccination: No Hx Influenza Vaccination: No Hx Pneumococcal Vaccination: No Review Of Systems Constitutional: Negative for: Fever, Chills, Weakness Cardiovascular: Negative for: Chest Pain, Palpitations Respiratory: Negative for: Cough, Shortness of Breath Gastrointestinal: Negative for: Nausea, Vomiting, Abdominal Pain Musculoskeletal: Positive for: Back Pain, Other (uses walker, difficulty ambulating at baseline) Neurological: Negative for: Weakness, Numbness, Dizziness Physical Exam - Physical Exam Appears: Well, Non-toxic, No Acute Distress Skin: Normal Color, Warm, Dry Head: Atraumatic, Normacephalic Neck: Normal ROM, Supple Chest: Symmetrical, No Deformity Cardiovascular: Rhythm Regular, No Murmur Respiratory: No Accessory Muscle Use, No Rales, No Rhonchi, No Wheezing Gastrointestinal/Abdominal: Soft, No Tenderness Back: Other (tenderness to right paralumbar spine) Extremity: Tenderness (right femur), Other (FROM of the hips and the knees) Extremity: Left: Atraumatic, Normal Color And Temperature Pulses: Left Radial: Normal, Right Radial: Normal Neurological/Psych: Oriented x3, Normal Speech, Normal Cognition ED Course And Treatment O2 Sat by Pulse Oximetry: 96 (RA) - Other Rad Right Femur X-ray X-Ray: Interpreted by Me, Viewed By Me Interpretation: Accession No. : [id number]. Patient Name / ID : SAIMA MELLO / [id number]. Exam Date : 07/15/2018 15:51:23 ( Approved ). Study Comment : Sex / Age : F / 68Y. Creator : Flory Samuel MD. Dictator : Flory Samuel MD. Train Operations Supervisor : Yarn Mercerizer Operator Helper : Flory Samuel MD. Approver2 : Report Date : 07/15/2018 17:42:55. My Comment : . This report is currently processing and HAS NOT BEEN OFFICIALLY SIGNED BY THE PHYSICIAN - ESTIMATED TIME OF APPROVAL IS 07/15/2018 17:47. Date of service: 07/15/2018. PROCEDURE: X-rays of the right femur. HISTORY: trauma, fall. COMPARISON: No prior similar study available for comparison. TECHNIQUE: AP and lateral views of the right femur were obtained. FINDINGS: There is no evidence of acute fracture. There is a round sclerotic lesion at the distal right femur measures approximately 1.2 centimeter in the transverse diameter. No evidence of cortical destruction. IMPRESSION: No evidence of acute pathology. Sclerotic round lesion at the distal right femur measures 1.2 centimeter of uncertain etiology. AP Pelvis and Right hip X-Ray: Interpreted by Me, Viewed By Me Interpretation: Accession No. : [id number]. Patient Name / ID : SAIMA MELLO / [id number]. Exam Date : 07/15/2018 15:51:10 ( Approved ). Study Comment : Sex / Age : F / 68Y. Creator : Flory Samuel MD. Dictator : Flory Samuel MD. Train Operations Supervisor : Yarn Mercerizer Operator Helper : Flory Samuel MD. Approver2 : Report Date : 07/15/2018 17:39:21. My Comment : . Date of service: 07/15/2018. PROCEDURE: AP pelvis and oblique right hip views. HISTORY: fall hip pain. COMPARISON: Comparison is made to the previous study dated 05/04/2018. TECHNIQUE: AP pelvis and oblique views of the right hip were obtained. FINDINGS: There is no evidence of acute fracture or dislocation. Mild arthritic degenerative changes. IMPRESSION: No evidence of acute fracture or dislocation. - CT Scan/US CT Lumbar Spine Other Rad Studies (CT/US): Interpreted By Me, Read By Radiologist CT/US Interpretation: Accession No. : [id number]. Patient Name / ID : SAIMA MELLO / [id number]. Exam Date : 07/15/2018 16:14:37 ( Approved ). Study Comment : Sex / Age : F / 68Y. Creator : Matt Goddard. Dictator : Flory Samuel MD. Train Operations Supervisor : Yarn Mercerizer Operator Helper : Flory Samuel MD. Approver2 : Report Date : 07/15/2018 16:23:41. My Comment : . This report is currently processing and HAS NOT BEEN OFFICIALLY SIGNED BY THE PHYSICIAN - ESTIMATED TIME OF APPROVAL IS 07/15/2018 17:21. Date of service: 07/15/2018. PROCEDURE: CT Lumbar Spine without contrast. HISTORY: fall, hx of spine sx, r/o fracture. COMPARISON: Comparison is made with the previous CT of the abdomen and pelvis dated 05/04/2018. TECHNIQUE: Axial computed tomography images were obtained of the lumbar spine without the use of intravenous contrast. Coronal and sagittal reformatted images were created and reviewed. Radiation dose: Total exam DLP = 1073.59 mGy-cm. This CT exam was performed using one or more of the following dose reduction techniques: Automated exposure control, adjustment of the mA and/or kV according to patient size, and/or use of iterative reconstruction technique. FINDINGS: VERTEBRAE: The patient is status post posterior internal fixation at L4 and L5. There is also intervertebral spacer at L4-L5. Moderate to severe endplate degenerative changes noted at the inferior endplate of L4 and superior endplate of L5. DISCS/SPINAL CANAL/NEURAL FORAMINA: L1-2: There is small broad-based bulging disc associated with posterior ligament and facet joint hypertrophy which resulting in mild spinal stenosis. L2-3: There is small bulging disc associated with posterior ligament and facet joint hypertrophy which resulting in mild to moderate spinal stenosis. There is imtz-tj-[id number] right neural foraminal narrowing. L3-4: There is a small broad-based bulging disc associated with posterior ligament and facet joint hypertrophy which resulting in klrj-ti-hlzfrvdq spinal stenosis. L4-5: The assessment of this level is limited due to streak artifact from the hardware. L5-S1: There is small broad- based bulging disc associated with posterior ligament and facet joint hypertrophy which resulting in mild spinal stenosis. PARASPINAL SOFT TISSUES: There is a 2.9 centimeter low-attenuation cyst at the right kidney again noted has not significantly change compared to the previous CT of the abdomen dated 05/04/2028. OTHER FINDINGS: None. IMPRESSION: There is no evidence of acute fracture or acute traumatic subluxation. Status post posterior internal fusion and fixation at L4-L5. Progress Note: CT Lumbar Spine , Femur min 2 views RT, and Hip min 2 views w/ pelvis RT ordered for patient. Patient given Naproxen PO. Disposition - Disposition Referrals: Tylor Gregory MD [Staff Provider] - Disposition: HOME/ ROUTINE Disposition Time: 17:54 Condition: STABLE Additional Instructions: Follow up with the medical doctor within 1-2 days. Return if worsened. Prescriptions: Naproxen 375 mg PO BID #20 tablet Instructions: Low Back Pain in Adults Forms: [facility] ([place]) - Clinical Impression Clinical Impression: Low back strain - PA / BOX INSPECTOR / Resident Statement MD/DO has reviewed & agrees with the documentation as recorded. (Freda Neely) - Scribe Statement The provider has reviewed the documentation as recorded by the Scribe (Freda Neely) All medical record entries made by the Scribe were at my direction and personally dictated by me. I have reviewed the chart and agree that the record accurately reflects my personal performance of the history, physical exam, medical decision making, and the department course for this patient. I have also personally directed, reviewed, and agree with the discharge instructions and disposition.
[2018-07-15 17:06] VITALS: BP 149/82
--- NOTE | 2018-07-15 17:19 | CT ---
Date of service: 07/15/2018 PROCEDURE: CT Lumbar Spine without contrast HISTORY: fall, hx of spine sx, r/o fracture COMPARISON: Comparison is made with the previous CT of the abdomen and pelvis dated 05/04/2018 TECHNIQUE: Axial computed tomography images were obtained of the lumbar spine without the use of intravenous contrast. Coronal and sagittal reformatted images were created and reviewed. Radiation dose: Total exam DLP = 1073.59 mGy-cm. This CT exam was performed using one or more of the following dose reduction techniques: Automated exposure control, adjustment of the mA and/or kV according to patient size, and/or use of iterative reconstruction technique. FINDINGS: VERTEBRAE: The patient is status post posterior internal fixation at L4 and L5. There is also intervertebral spacer at L4-L5. Moderate to severe endplate degenerative changes noted at the inferior endplate of L4 and superior endplate of L5. DISCS/SPINAL CANAL/NEURAL FORAMINA: L1-2: There is small broad-based bulging disc associated with posterior ligament and facet joint hypertrophy which resulting in mild spinal stenosis. L2-3: There is small bulging disc associated with posterior ligament and facet joint hypertrophy which resulting in mild to moderate spinal stenosis. There is yyxn-eu-ogknaxmc right neural foraminal narrowing. L3-4: There is a small broad-based bulging disc associated with posterior ligament and facet joint hypertrophy which resulting in hnsv-lm-pqxmbcvv spinal stenosis. L4-5: The assessment of this level is limited due to streak artifact from the hardware. L5-S1: There is small broad-based bulging disc associated with posterior ligament and facet joint hypertrophy which resulting in mild spinal stenosis. PARASPINAL SOFT TISSUES: There is a 2.9 centimeter low-attenuation cyst at the right kidney again noted has not significantly change compared to the previous CT of the abdomen dated 05/04/2028 OTHER FINDINGS: None. IMPRESSION: There is no evidence of acute fracture or acute traumatic subluxation. Status post posterior internal fusion and fixation at L4-L5.
--- NOTE | 2018-07-15 17:42 | RAD ---
Date of service: 07/15/2018 PROCEDURE: AP pelvis and oblique right hip views. HISTORY: fall hip pain COMPARISON: Comparison is made to the previous study dated 05/04/2018 TECHNIQUE: AP pelvis and oblique views of the right hip were obtained. FINDINGS: There is no evidence of acute fracture or dislocation. Mild arthritic degenerative changes. IMPRESSION: No evidence of acute fracture or dislocation.
--- NOTE | 2018-07-15 17:46 | RAD ---
Date of service: 07/15/2018 PROCEDURE: X-rays of the right femur HISTORY: trauma, fall COMPARISON: No prior similar study available for comparison. TECHNIQUE: AP and lateral views of the right femur were obtained. FINDINGS: There is no evidence of acute fracture. There is a round sclerotic lesion at the distal right femur measures approximately 1.2 centimeter in the transverse diameter. No evidence of cortical destruction. IMPRESSION: No evidence of acute pathology. Sclerotic round lesion at the distal right femur measures 1.2 centimeter of uncertain etiology.
[2018-07-15 18:13] VITALS: PULSE 90; RESP 16; TEMP 98; O2SAT 98
== END 2018-07-15 18:13 | disposition home or self-care (01) ==
LOC: C.ER 15:01
DX: S39.012A Strain of muscle, fascia and tendon of lower back, initial encounter (principal); W01.0XXA Fall on same level from slipping, tripping and stumbling without subsequent striking against object, initial encounter; Y92.000 Kitchen of unspecified non-institutional (private) residence as the place of occurrence of the external cause